=== PATIENT | female | born 1955 | race Asian ===

== ENCOUNTER → 2017-09-28 14:06 | Outpatient (CLI) | payer OTHER, SELFPAY ==
--- NOTE | 2017-09-28 15:23 | PM.TREADMILL ---
Cardiac Stress Test Report Referral & Results Date Patient Seen: 09/28/17 Time Patient Seen: 15:23 Requesting provider: Blanche Duncan Indication: Chest pain Rest ECG: Unremarkable although low voltage making subsequent analysis somewhat difficult, and imperfect Procedure Note: Today following both written and verbal informed consent, the patient was exercised according to a standard Tom protocol. The patient exercised for a total of 8 min 20 sec achieving a maximum heart rate of 130. Patient's maximum systolic blood pressure was 152. This was an estimated 10.1 MET's. Because of patient's low voltage was very difficult to identify subtle ST segment changes but no obvious ST segment changes were identified by the during exercise or in recovery when the ECG was much easier to follow. Patient is somewhat slow heart rate increased but ultimately had a normal heart rate and blood pressure response to exercise Functional aerobic impairment was off the scale estimate at-30% on the active scale Impression: No evidence of ischemia. Excellent exercise capacity. Please note: Actual ECG tracings can be found in the PACS system.
[2017-09-28 18:37] LABS: HIV 1 and 2 Antibody NEGATIVE (NEGATIVE)
== END ==
PROVIDERS: Family Provider Physician Assistant; PCP Physician Assistant; Visit Provider Physician Assistant
DX: R07.9 Chest pain, unspecified (principal); E78.2 Mixed hyperlipidemia; R00.1 Bradycardia, unspecified; S61.239A Puncture wound without foreign body of unspecified finger without damage to nail, initial encounter
CPT/HCPCS: 36415; 86703; 93016; 93017; 93018

== ENCOUNTER → 2017-10-19 09:58 | Outpatient (CLI) | payer OTHER, SELFPAY ==
--- NOTE | 2017-10-19 10:00 | DI.RAD.S_ITS ---
PROCEDURE: XR ELBOW RT MIN 3V INDICATIONS: right elbow pain, muscle weakness forearm TECHNIQUE: 3 views of the elbow were acquired. COMPARISON: None. FINDINGS: Bones: No fractures or dislocations. No suspicious bony lesions. Soft tissues: No elbow joint effusion. No suspicious soft tissue calcifications. IMPRESSION: No effusion or acute bony abnormality. Dictated by: Marcos Case M.D. on 10/19/2017 at 10:51 Approved by: Marcos Case M.D. on 10/19/2017 at 10:52
--- NOTE | 2017-10-19 10:00 | DI.RAD.S_ITS ---
PROCEDURE: XR CERVICAL SPINE 2V OR 3V INDICATIONS: muscle weakness forearm TECHNIQUE: 3 view(s) of the cervical spine were acquired. COMPARISON: None. FINDINGS: Bones: No fractures or dislocations to the T1 level. The lateral masses of C1 appear intact on the odontoid view. No suspicious bony lesions. Disc spaces appear maintained. Soft tissues: No prevertebral soft tissue swelling. IMPRESSION: Normal cervical spine Dictated by: Marcos Case M.D. on 10/19/2017 at 10:52 Approved by: Marcos Case M.D. on 10/19/2017 at 10:53
== END ==
PROVIDERS: Family Provider Physician Assistant; PCP Physician Assistant; Visit Provider Physician Assistant
DX: M54.2 Cervicalgia (principal); M25.521 Pain in right elbow; M62.81 Muscle weakness (generalized)
CPT/HCPCS: 72040; 73080

== ENCOUNTER → 2017-10-28 08:09 | Outpatient (CLI) | payer OTHER, SELFPAY ==
--- NOTE | 2017-10-28 08:14 | DI.MG.S_ITS ---
BILATERAL DIGITAL SCREENING MAMMOGRAM 3D/2D WITH CAD: 10/28/2017 CLINICAL: Routine screening. Comparison is made to exams dated: 01/12/2014 mammogram, 04/16/2016 mammogram, and 09/22/2012 mammogram - [facility]. The tissue of both breasts is heterogeneously dense. This may lower the sensitivity of mammography. Current study was also evaluated with a Computer Aided Detection (CAD) system. There are clustered calcifications in the left breast at 7 o'clock posterior depth. No other significant masses, calcifications, or other findings are seen in either breast. IMPRESSION: INCOMPLETE: NEEDS ADDITIONAL IMAGING EVALUATION The clustered calcifications in the left breast are indeterminate. Additional views with possible ultrasound are recommended. This exam was interpreted at Station ID: [id number]. NOTE: For mammograms, a report in lay terms will be sent to the patient. Approximately 15% of breast malignancies will not be visualized mammographically. In the management of a palpable breast mass, a negative mammogram must not discourage biopsy of a clinically suspicious lesion. Electronically Signed By: Verónica staton/augusta:10/28/2017 11:04:41 copy to: ZARIA VELARDE letter sent: Additional Imaging Needed ACR BI-RADS Category 0: Incomplete 3340F
[2017-10-28 09:46] LABS: Cholesterol 198 mg/dL (140-199); HDL Cholesterol 46 mg/dL (40-60); LDL Cholesterol Calculated 120 mg/dL (<100); Triglycerides 161 mg/dL (35-150)
== END ==
PROVIDERS: Family Provider Physician Assistant; PCP Physician Assistant; Visit Provider Physician Assistant
DX: Z12.31 Encounter for screening mammogram for malignant neoplasm of breast (principal); E78.2 Mixed hyperlipidemia
CPT/HCPCS: 36415; 77063; 77067; 80061

== ENCOUNTER → 2017-11-17 14:05 | Outpatient (CLI) | payer OTHER, SELFPAY ==
--- NOTE | 2017-11-17 14:07 | DI.MG.S_ITS ---
UNILATERAL LEFT DIGITAL DIAGNOSTIC MAMMOGRAM 3D/2D WITH ADDITIONAL VIEWS: 11/17/2017 CLINICAL: Additional evaluation requested from prior study. Comparison is made to exams dated: 10/28/2017 mammogram, 04/16/2016 mammogram, 01/12/2014 mammogram, and 09/22/2012 mammogram - [facility]. The tissue of the left breast is heterogeneously dense. This may lower the sensitivity of mammography. Subtle grouped calcifications measuring 1.0 cm in greatest extent in the inferior left breast at 6-7 o'clock posterior depth are less well seen but appear similar to represent vascular calcifications. No other significant masses, calcifications, or other findings are seen in the breast. IMPRESSION: PROBABLY BENIGN 1.0 cm extent of subtle grouped calcifications in the lower left breast at posterior depth are probably benign. A follow-up mammogram in 6 months is recommended to demonstrate stability. This exam was interpreted at Station ID: [id number]. NOTE: For mammograms, a report in lay terms will be sent to the patient. Approximately 15% of breast malignancies will not be visualized mammographically. In the management of a palpable breast mass, a negative mammogram must not discourage biopsy of a clinically suspicious lesion. Electronically Signed By: Jimbo Haney M.D. ecl/:11/17/2017 21:18:51 copy to: ZARIA VELARDE letter sent: Followup Recommended ACR BI-RADS Category 3: Probably benign 3343F
== END ==
PROVIDERS: PCP Physician Assistant; Visit Provider Physician Assistant
DX: R92.1 Mammographic calcification found on diagnostic imaging of breast (principal)
CPT/HCPCS: 77065; G0279

== ENCOUNTER → 2018-05-18 13:02 | Outpatient (CLI) | payer OTHER, SELFPAY | PROVIDERS: PCP Nurse Practitioner Family; Visit Provider Nurse Practitioner Family | DX: M85.851 Other specified disorders of bone density and structure, right thigh (principal); Z78.0 Asymptomatic menopausal state; E28.39 Other primary ovarian failure; Z82.62 Family history of osteoporosis; Z90.722 Acquired absence of ovaries, bilateral | CPT/HCPCS: 77080 ==

== ENCOUNTER → 2019-03-29 11:17 | Outpatient (CLI) | payer OTHER, SELFPAY ==
[2019-03-29 14:23] LABS: Alanine Aminotransferase 20 IU/L (<35); Albumin 4.7 g/dL (3.5-5.0); Albumin Globulin Ratio 1.5 (1.0-2.8); Alkaline Phosphatase 59 U/L (38-126); Aspartate Aminotransferase 27 IU/L (14-36); Bilirubin Total 0.6 mg/dL (0.2-1.3); Blood Urea Nitrogen 14 mg/dL (7-17); Calcium 9.5 mg/dL (8.4-10.2); Carbon Dioxide 29 mmol/L (22-32); Chloride 102 mmol/L (98-107); Cholesterol 270 mg/dL (140-199); Estimated Glomerular Filt Rate > 60.0 mL/min (>60); Globulin 3.1 g/dL (1.7-4.1); Glucose 90 mg/dL (80-110); HDL Cholesterol 47 mg/dL (40-60); HEMOLYSIS < 15 (0-50); LDL Cholesterol Calculated 184 mg/dL (<100); Magnesium 2.1 mg/dL (1.6-2.3); Potassium 4.1 mmol/L (3.4-5.1); Sodium 141 mmol/L (137-145); Total Protein 7.8 g/dL (6.3-8.2); Triglycerides 197 mg/dL (35-150)
[2019-03-29 18:00] LABS: Vitamin D 25 Hydroxy (D3) 39.6 ng/mL (30.0-100.0)
== END ==
PROVIDERS: PCP Physician Assistant; Visit Provider Physician Assistant
DX: R79.0 Abnormal level of blood mineral (principal); M81.0 Age-related osteoporosis without current pathological fracture; E78.2 Mixed hyperlipidemia
CPT/HCPCS: 36415; 80053; 80061; 82306; 83735

== ENCOUNTER → 2019-05-18 16:22 | Outpatient (CLI) | payer OTHER, SELFPAY ==
--- NOTE | 2019-05-18 | DI.MG.S_ITS ---
BILATERAL DIGITAL SCREENING MAMMOGRAM 3D/2D WITH CAD: 05/18/2019 CLINICAL: Routine screening. Comparison is made to exams dated: 10/28/2017 mammogram, 04/16/2016 mammogram, 01/12/2014 mammogram, 09/22/2012 mammogram, and 01/01/2011 mammogram - [facility]. The tissue of both breasts is heterogeneously dense. This may lower the sensitivity of mammography. Current study was also evaluated with a Computer Aided Detection (CAD) system. There is a fine calcification in the left breast at 7 o'clock middle depth. This is more prominent. No other significant masses, calcifications, or other findings are seen in either breast. IMPRESSION: INCOMPLETE: NEEDS ADDITIONAL IMAGING EVALUATION The fine calcification in the left breast is indeterminate. Additional views are recommended. This exam was interpreted at Station ID: [id number]. NOTE: For mammograms, a report in lay terms will be sent to the patient. Approximately 15% of breast malignancies will not be visualized mammographically. In the management of a palpable breast mass, a negative mammogram must not discourage biopsy of a clinically suspicious lesion. Electronically Signed By: Delfino Dawson M.D. slc/:05/18/2019 17:56:23 copy to: ZARIA VELARDE letter sent: Additional Imaging Needed ACR BI-RADS Category 0: Incomplete 3340F
== END ==
PROVIDERS: PCP Physician Assistant; Referring Provider Physician Assistant; Visit Provider Physician Assistant
DX: Z12.31 Encounter for screening mammogram for malignant neoplasm of breast (principal)
CPT/HCPCS: 77063; 77067

== ENCOUNTER → 2019-06-02 13:10 | Outpatient (CLI) | payer OTHER, SELFPAY ==
--- NOTE | 2019-06-02 | DI.MG.S_ITS ---
UNILATERAL LEFT DIGITAL DIAGNOSTIC MAMMOGRAM 3D/2D WITH ADDITIONAL VIEWS: 06/02/2019 CLINICAL: Additional evaluation requested from prior study. Comparison is made to exams dated: 05/18/2019 mammogram, 11/17/2017 mammogram, 10/28/2017 mammogram, and 04/16/2016 mammogram - [facility]. The tissue of left breast is heterogeneously dense. This may lower the sensitivity of mammography. The fine calcifications in the left breast at 8 o'clock middle depth are not seen on additional views and likely reflect artifact. The findings are unchanged compared to prior studies. No other significant masses or calcifications are seen in the breast. IMPRESSION: There is no mammographic evidence of malignancy. A 1 year screening mammogram is recommended. This exam was interpreted at Station ID: [id number]. NOTE: For mammograms, a report in lay terms will be sent to the patient. Approximately 15% of breast malignancies will not be visualized mammographically. In the management of a palpable breast mass, a negative mammogram must not discourage biopsy of a clinically suspicious lesion. Electronically Signed By: Jesu avila/:06/02/2019 13:43:02 copy to: ZARIA VELARDE letter sent: Normal Exam ACR BI-RADS Category 2: Benign Finding(s) 3342F
== END ==
PROVIDERS: PCP Physician Assistant; Referring Provider Physician Assistant; Visit Provider Physician Assistant
DX: R92.8 Other abnormal and inconclusive findings on diagnostic imaging of breast (principal)
CPT/HCPCS: 77065; G0279

== ENCOUNTER → 2019-06-12 10:46 | Outpatient (CLI) | payer OTHER, SELFPAY ==
[2019-06-12 12:47] LABS: Cholesterol 290 mg/dL (140-199); HDL Cholesterol 44 mg/dL (40-60); LDL Cholesterol Calculated 210 mg/dL (<100); Triglycerides 182 mg/dL (35-150)
== END ==
PROVIDERS: PCP Physician Assistant; Referring Provider Nurse Practitioner Family; Visit Provider Nurse Practitioner Family
DX: E78.2 Mixed hyperlipidemia (principal); R89.9 Unspecified abnormal finding in specimens from other organs, systems and tissues
CPT/HCPCS: 36415; 80061

== ENCOUNTER → 2019-09-18 14:31 | Outpatient (CLI) | payer OTHER, SELFPAY ==
[2019-09-20 09:38] LABS: COVID19 Sendout Not Detected (Not Detected)
== END ==
PROVIDERS: PCP Nurse Practitioner Family; Visit Provider Physician Assistant
DX: Z03.818 Encounter for observation for suspected exposure to other biological agents ruled out (principal)
CPT/HCPCS: 87635

== ENCOUNTER → 2019-11-21 10:40 | Outpatient (CLI) | payer OTHER, SELFPAY ==
[2019-11-21 12:50] LABS: Cholesterol 143 mg/dL (140-199); HDL Cholesterol 59 mg/dL (40-60); LDL Cholesterol Calculated 64 mg/dL (<100); Triglycerides 100 mg/dL (35-150)
== END ==
PROVIDERS: PCP Nurse Practitioner Family; Referring Provider Nurse Practitioner Family; Visit Provider Nurse Practitioner Family
DX: E78.2 Mixed hyperlipidemia (principal)
CPT/HCPCS: 36415; 80061

== ENCOUNTER → 2019-12-12 10:57 | Outpatient (CLI) | payer OTHER, SELFPAY ==
[2019-12-14 15:48] LABS: Inhibin B <7.0 pg/mL (0.0-16.9)
== END ==
PROVIDERS: PCP Nurse Practitioner Family; Referring Provider Obstetrics & Gynecology; Visit Provider Obstetrics & Gynecology
DX: C56.2 Malignant neoplasm of left ovary (principal)
CPT/HCPCS: 36415; 83520

== ENCOUNTER → 2020-06-04 12:07 | Outpatient (CLI) | payer OTHER, SELFPAY ==
--- NOTE | 2020-06-04 12:08 | DI.MG.S_ITS ---
BILATERAL DIGITAL SCREENING MAMMOGRAM 3D/2D WITH CAD: 06/04/2020 CLINICAL: Routine screening. Comparison is made to exams dated: 05/18/2019 mammogram, 10/28/2017 mammogram, and 04/16/2016 mammogram - [facility]. The tissue of both breasts is heterogeneously dense. This may lower the sensitivity of mammography. Current study was also evaluated with a Computer Aided Detection (CAD) system. No significant masses, calcifications, or other findings are seen in either breast. There has been no significant interval change. IMPRESSION: NEGATIVE There is no mammographic evidence of malignancy. A 1 year screening mammogram is recommended. This exam was interpreted at Station ID: [id number]. NOTE: For mammograms, a report in lay terms will be sent to the patient. Approximately 15% of breast malignancies will not be visualized mammographically. In the management of a palpable breast mass, a negative mammogram must not discourage biopsy of a clinically suspicious lesion. Electronically Signed By: Jesu avila/augusta:06/04/2020 12:23:03 letter sent: Normal Exam ACR BI-RADS Category 1: Negative 3341F
== END ==
PROVIDERS: PCP Nurse Practitioner Family; Referring Provider Nurse Practitioner Family; Visit Provider Nurse Practitioner Family
DX: Z12.31 Encounter for screening mammogram for malignant neoplasm of breast (principal)
CPT/HCPCS: 77063; 77067

== ENCOUNTER → 2020-06-19 09:45 | Outpatient (CLI) | payer OTHER, SELFPAY ==
--- NOTE | 2020-06-19 10:01 | DI.RAD.S_ITS ---
PROCEDURE: XR HIP W PEL IF DONE LT 2V INDICATIONS: monitoring TECHNIQUE: AP pelvis with lateral view(s) of the left hip(s). COMPARISON: [facility], CR, [id number] W PEL IF PERFORMED, 12/10/2016, 9:43. FINDINGS: Bones: No fractures or dislocations. Pelvic ring appears intact. No suspicious bony lesions. Soft tissues: The visualized bowel gas pattern is normal. No suspicious soft tissue calcifications. IMPRESSION: No trauma found, minimal bilateral symmetric hip joint osteoarthritis. Dictated by: Mina Amado M.D. on 06/19/2020 at 10:39 Approved by: Mina Amado M.D. on 06/19/2020 at 10:40
[2020-06-19 10:57] LABS: Hematocrit 41.1 % (36-46); Hemoglobin 13.5 g/dL (12.0-16.0); Mean Corpuscular Hemoglobin 29.7 PG (26-34); Mean Corpuscular Volume 90.2 fL (80-100); Platelet Count 214 X10^3/uL (150-400); Red Blood Cell Count 4.56 X10^6/uL (4.0-5.2); Red Cell Distribution Width 12.8 % (11.6-14.8); White Blood Cell Count 4.5 X10^3/uL (4.5-11.0)
[2020-06-19 11:02] LABS: Alanine Aminotransferase 23 IU/L (<35); Albumin 4.6 g/dL (3.5-5.0); Albumin Globulin Ratio 1.3 (1.0-2.8); Alkaline Phosphatase 61 U/L (38-126); Aspartate Aminotransferase 34 IU/L (14-36); BUN Creatinine Ratio 17.5 (6-22); Bilirubin Total 0.4 mg/dL (0.2-1.3); Blood Urea Nitrogen 14 mg/dL (7-17); Calcium 9.7 mg/dL (8.4-10.2); Carbon Dioxide 30 mmol/L (22-32); Chloride 104 mmol/L (98-107); Cholesterol 220 mg/dL (140-199); Estimated Glomerular Filt Rate > 60.0 mL/min (>60); Globulin 3.5 g/dL (1.7-4.1); Glucose 116 mg/dL (80-110); HDL Cholesterol 54 mg/dL (40-60); LDL Cholesterol Calculated 130 mg/dL (<100); Potassium 4.6 mmol/L (3.4-5.1); Sodium 142 mmol/L (137-145); Total Protein 8.1 g/dL (6.3-8.2); Triglycerides 181 mg/dL (35-150)
[2020-06-19 11:35] LABS: Erythrocyte Sedimentation Rate 23 MM/HR (0-20)
[2020-06-19 11:39] LABS: TSH w/ Reflex to FT4 2.75 uIU/mL (0.47-4.68)
[2020-06-19 14:54] LABS: C-Reactive Protein Quant < 0.5 mg/dL (<1.0); HEMOLYSIS < 15 (0-50)
[2020-06-20 10:08] LABS: Hemoglobin A1C% w Est Avg Glu 5.8 % (4.0-6.0)
== END ==
PROVIDERS: PCP Nurse Practitioner Family; Referring Provider Nurse Practitioner Family; Visit Provider Nurse Practitioner Family
DX: E78.2 Mixed hyperlipidemia (principal); M79.10 Myalgia, unspecified site; M81.0 Age-related osteoporosis without current pathological fracture; Z00.00 Encounter for general adult medical examination without abnormal findings; M53.3 Sacrococcygeal disorders, not elsewhere classified
CPT/HCPCS: 36415; 73502; 80053; 80061; 82306; 83036; 84443; 85027; 85651; 86140

== ENCOUNTER → 2020-08-21 13:04 | Outpatient (CLI) | payer MEDICARE, OTHER, SELFPAY | PROVIDERS: PCP Nurse Practitioner Family; Referring Provider Nurse Practitioner Family; Visit Provider Nurse Practitioner Family | DX: M85.852 Other specified disorders of bone density and structure, left thigh; Z78.0 Asymptomatic menopausal state; Z82.62 Family history of osteoporosis; Z90.722 Acquired absence of ovaries, bilateral | CPT/HCPCS: 77080 ==

== ENCOUNTER → 2020-10-16 09:55 | Outpatient (CLI) | payer MEDICARE, OTHER, SELFPAY ==
[2020-10-16 11:55] LABS: Cholesterol 216 mg/dL (140-199); HDL Cholesterol 51 mg/dL (40-60); LDL Cholesterol Calculated 134 mg/dL (<100); Triglycerides 153 mg/dL (35-150); Uric Acid 5.6 mg/dL (2.5-6.2)
== END ==
PROVIDERS: PCP Nurse Practitioner Family; Referring Provider Nurse Practitioner Family; Visit Provider Nurse Practitioner Family
DX: E78.2 Mixed hyperlipidemia (principal); M79.645 Pain in left finger(s)
CPT/HCPCS: 36415; 80061; 84550

== ENCOUNTER → 2020-10-30 13:03 | Outpatient (CLI) | payer MEDICARE, OTHER, SELFPAY ==
[2020-10-30 16:19] LABS: COVID19 -Nasal RAPID Negative (Negative)
== END ==
PROVIDERS: PCP Nurse Practitioner Family; Visit Provider Nurse Practitioner
DX: Z20.822 Contact with and (suspected) exposure to COVID-19 (principal)
CPT/HCPCS: 87635

== ENCOUNTER → 2020-12-06 10:32 | Outpatient (CLI) | payer MEDICARE, OTHER, SELFPAY ==
[2020-12-06 12:39] LABS: Bilirubin Urine UA NEGATIVE (NEGATIVE); Color Urine UA YELLOW; Glucose Urine UA NEGATIVE (Negative); Ketones Urine UA NEGATIVE (NEGATIVE); Leukocyte Esterase Urine UA TRACE (NEGATIVE); Nitrite Urine UA POSITIVE (Negative); Occult Blood Urine UA TRACE-LYSED (Negative); Protein Urine UA NEGATIVE (Negative); Urobilinogen Urine UA 0.2 E.U./dL (0.2)
[2020-12-06 12:41] LABS: Hematocrit 40.1 % (36-46); Mean Corpuscular HGB Conc 32.4 % (30-36); Mean Corpuscular Hemoglobin 28.6 PG (26-34); Mean Corpuscular Volume 88.1 fL (80-100); Platelet Count 278 X10^3/uL (150-400); Red Blood Cell Count 4.56 X10^6/uL (4.0-5.2); White Blood Cell Count 4.3 X10^3/uL (4.5-11.0)
[2020-12-06 12:52] LABS: Appearance Urine UA Slightly Cloudy; RBC Urine 0-1/HPF (0-5/HPF); Squamous Epithelial Cell Urine 1-5 /HPF (0-5/HPF); WBC Urine 5-10/HPF (0-5/HPF)
[2020-12-06 12:53] LABS: Alanine Aminotransferase 20 IU/L (<35); Albumin 4.5 g/dL (3.5-5.0); Albumin Globulin Ratio 1.3 (1.0-2.8); Alkaline Phosphatase 75 U/L (38-126); Aspartate Aminotransferase 26 IU/L (14-36); BUN Creatinine Ratio 22.1 (6-22); Bacteria Urine Many (>30); Bilirubin Total 0.5 mg/dL (0.2-1.3); Blood Urea Nitrogen 17 mg/dL (7-17); Calcium 9.5 mg/dL (8.4-10.2); Carbon Dioxide 32 mmol/L (22-32); Chloride 105 mmol/L (98-107); Cholesterol 199 mg/dL (140-199); Culture Indicated Urine Specimen Cultured; Estimated Glomerular Filt Rate > 60.0 mL/min (>60); Globulin 3.4 g/dL (1.7-4.1); Glucose 106 mg/dL (80-110); HDL Cholesterol 45 mg/dL (40-60); HEMOLYSIS < 15 (0-50); LDL Cholesterol Calculated 130 mg/dL (<100); Potassium 4.4 mmol/L (3.4-5.1); Sodium 142 mmol/L (137-145); Total Protein 7.9 g/dL (6.3-8.2); Triglycerides 118 mg/dL (35-150)
[2020-12-06 13:29] LABS: TSH w/ Reflex to FT4 1.85 uIU/mL (0.47-4.68)
== END ==
PROVIDERS: PCP Nurse Practitioner Family; Referring Provider Nurse Practitioner Family; Visit Provider Nurse Practitioner Family
DX: Z00.00 Encounter for general adult medical examination without abnormal findings (principal); M54.5 Low back pain; R10.31 Right lower quadrant pain; E78.2 Mixed hyperlipidemia
CPT/HCPCS: 36415; 80053; 80061; 81001; 84443; 85027; 87077; 87086; 87186

== ENCOUNTER → 2020-12-10 12:49 | Outpatient (CLI) | payer MEDICARE, OTHER, SELFPAY ==
--- NOTE | 2020-12-10 12:50 | DI.US.S_ITS ---
PROCEDURE: US ABDOMEN COMPLETE INDICATIONS: PAIN TECHNIQUE: Real-time scanning was performed of the abdominal and retroperitoneal organs, with image documentation. COMPARISON: None. FINDINGS: Liver: Liver is normal in size and homogeneous in echotexture. Gallbladder: Gallbladder is sonographically normal. No gallstones. No gallbladder wall thickening. No pericholecystic fluid. No sonographic Osorio sign. Biliary ducts: Intrahepatic bile ducts are non-dilated. Extrahepatic bile duct caliber measures 4.5 mm. Normal is 6-7 mm or less in diameter, or 10 mm or less post-cholecystectomy. Pancreas: Visualized portions of the pancreas are sonographically normal. Spleen: Spleen is normal in size and homogeneous in echotexture. Kidneys: Kidneys are normal in size and echotexture. Right kidney measures 11.2 cm long; left kidney measures 10.6 cm long. No hydronephrosis or nephrolithiasis. No solid masses. Aorta: Visualized aorta is normal in caliber at less than 3 cm. Iliacs: Proximal common iliac arteries are normal in caliber at less than 2.5 cm. IVC: Intrahepatic inferior vena cava is patent. Miscellaneous: No free abdominal fluid. Appendix is not visualized and cannot be evaluated. IMPRESSION: 1. Normal abdominal sonogram. 2. Appendix not identified and cannot be evaluated. This study does not exclude appendicitis. Dictated by: Micaela Mayes MD, PhD on 12/10/2020 at 15:31 Approved by: Micaela Mayes MD, PhD on 12/10/2020 at 15:32
--- NOTE | 2020-12-10 12:50 | DI.RAD.S_ITS ---
PROCEDURE: XR SACRUM COCCYX MIN 2V INDICATIONS: back pain TECHNIQUE: 3 views of the sacrum and coccyx acquired. COMPARISON: None. FINDINGS: Bones: No fractures or dislocations. No suspicious bony lesions. Mild lower lumbar spine degenerative disc changes. Mild bilateral sacroiliac joint osteoarthritis. Soft tissues: Visualized bowel gas pattern is normal. No suspicious soft tissue densities. IMPRESSION: No fracture. No acute osseous lesion. If symptoms and/or clinical suspicion for pathology persists, evaluation with MRI should be considered for further assessment. Dictated by: Micaela Mayes MD, PhD on 12/10/2020 at 14:44 Approved by: Micaela Mayes MD, PhD on 12/10/2020 at 14:45
--- NOTE | 2020-12-10 12:50 | DI.RAD.S_ITS ---
PROCEDURE: XR LUMBAR SPINE 2-3V INDICATIONS: back pain TECHNIQUE: 3 views of the lumbar spine were acquired. COMPARISON: None. FINDINGS: Bones: 5 [id number]-alavlaj vertebrae are present. There is normal bony alignment. No acute vertebral body compression fractures. No suspicious bony lesions. Moderate multilevel lumbar spondylosis with degenerative endplate changes, disc space loss, and endplate osteophyte formation. Soft tissues: Overlying bowel gas pattern is normal. No suspicious soft tissue calcifications. IMPRESSION: Lumbar spine without acute fracture or malalignment. Multilevel lumbar spondylosis. Dictated by: Saleem Zambrano M.D. on 12/10/2020 at 18:02 Approved by: Saleem Zambrano M.D. on 12/10/2020 at 18:03
== END ==
PROVIDERS: PCP Nurse Practitioner Family; Referring Provider Nurse Practitioner Family; Visit Provider Nurse Practitioner Family
DX: R10.31 Right lower quadrant pain (principal); M54.5 Low back pain; M46.1 Sacroiliitis, not elsewhere classified; M47.816 Spondylosis without myelopathy or radiculopathy, lumbar region
CPT/HCPCS: 72100; 72220; 76700

== ENCOUNTER 2021-04-04 13:30 | Outpatient (RCR) | payer MEDICARE, OTHER, SELFPAY ==
--- NOTE | 2021-01-28 17:22 | PT.OPPOC ---
Physical, Occupational & Speech Therapy At [facility] Current Diagnoses Low back pain, unspecified (01/28/21) Stress incontinence (female) (male) (01/28/21) Lower abdominal pain, unspecified (01/28/21) Visit Care Team Role Provider Type STEVEN Knight Attending Provider Advanced Psychotherapist Social Worker Family Provider Primary Care Provider Referring Provider Specialty: Family Practice Address: [address] [place] [address], [id number] Email: [email or web address] Plan Of Care PT-OP-T Assessment and Plan Start: 01/27/21 17:48 Freq: Status: Active Protocol: Document 01/28/21 10:31 LRN (Rec: 01/28/21 11:29 LRN [id number]) Physical Therapy Assessment Rehab Potential Rehabilitation Potential Good Evaluation Complexity Number of Personal Factors/Comorbidities 3 or More Number of Body Systems Impaired 4 or More Clinical Presentation at Evaluation Evolving Impairments Impairments Activity Tolerance,Pain, Posture,ROM,Soft Tissue Mobility,Strength,Transfers Goals Three Impairment Interrupted nighttime sleep due to pain with moving Short Term Goal (STG) Pt will be educated and demonstrate improved sitting posture, with modifications to her lying posture with support of towel rolls for comfort in bed. STG Duration 02/14/21 Information Systems Security Manager Goal (LTG) Pt will be able to move to move in bed without back pain. LTG Duration 04/28/21 Two Impairment Decreased sitting tolerance due to pain Short Term Goal (STG) Pt will be able to sit for 20- 30' without onset of back/ lower abdominal or anterior thigh pain. STG Duration 02/21/21 Information Systems Security Manager Goal (LTG) Pt will be able to sit for 45' without onset of back/lower abdominal or anterior thigh pain LTG Duration 04/28/21 One Impairment Pt lacks an independent self care HEP. Short Term Goal (STG) Pt will be educated in proper body mechanics. STG Duration 02/07/21 Information Systems Security Manager Goal (LTG) Pt will be independent in a self care HEP for PF strengthening. LTG Duration 04/28/21 Assessment Summary Assessment Pt presents with symptoms of pain complaint patterns consistent with pelvic pain, possibly due to her recent starting of online exercises and her recent bout with constipation causing excessive stress on her bladder and pelvic floor. She has a mechanical dysfunction of her lumbar spine per x-ray report of multilevel lumbar spondylosis also causing pain in back possibly her anterior thigh in L2 dermatome. Her trunk mobility is limited due to lower back/buttock pain and tightness of her hamstring muscles. She also demonstrates decreased core strength with inability to maintain core stability during muscle testing of her hips bilaterally. She shows some weakness of her hips, L worse than R and decreased mobility of her hip rotators. She shows indication that she has anterior lower abdominal and thigh soft tissue dysfunction with forward postural sway. Further assessment of her pelvic floor, abdomen, and bladder/bowel positioning is needed and will be checked at her next visit. Rehabilitation is expected to be prolonged due to the pt being gone for 1 month during the iday season. The pt will benefit from skilled physical therapy to decrease her back/abdomen/anterior thigh pain and return her to her prior level of activity and function. Physical Therapy Plan Frequency and Duration Frequency of Treatment 2x/Week Plan of Care Start Date 01/28/21 Plan of Care End Date 04/28/21 Therapeutic Interventions Therapeutic Interventions Home Exercise Program,Joint Mobilizations,Manual Therapy, Neuromuscular Re-education, Patient/Caregiver Education, Self-Care/Home Management,Soft Tissue Mobilization,Taping, Therapeutic Activities, Therapeutic Exercises Modalities Cold Pack/Ice Massage,Electric Stimulation,Hot Packs, Ultrasound Next Visit Focus/Plan Next Note Type Treatment Note Next Visit Plan Assess soft tissue of the abdomen and pelvic floor. Assess response to manual lumbar traction. Review pt's U-tube HEP and modify as needed. Review pt's bladder diary and recommend changes as needed to improve bowel and bladder function. Initiate low back and hip mobility ( rotation, hamstring) and progress towards strengthening exercises as tolerate. Pt will be leaving Mar 02 - week of Mar; therefore focus on placing the pt on a self care program to be done over the weeks. Plan of Care Dates Plan of Care Start Date 01/28/21 Plan of Care End Date 04/28/21 Electronically Signed by: Verónica Lara, PT 01/31/21 1153 Please Sign and Return: I have reviewed this Plan of Care and certify that the skilled therapy services above are required to meet the patient?s needs. Physician Signature Date Printed Name and Credentials Clinical Instructor Signature Printed Name and Credentials
--- NOTE | 2021-01-28 17:22 | PT.OIE ---
Current Diagnoses Low back pain, unspecified (01/28/21) Stress incontinence (female) (male) (01/28/21) Lower abdominal pain, unspecified (01/28/21) Past Medical History (Last Updated 12/04/20 @ 13:19 by STEVEN Knight) Colon polyps (01/11/12) GERD (gastroesophageal reflux disease) Granulosa cell tumor of left ovary (2010) Herpes Latent tuberculosis Lumbar pain Mixed hyperlipidemia (07/28/10) Myalgia Neck muscle strain (11/2019) Osteopenia Osteopenia after menopause Respiratory infection Right lower quadrant pain Sacroiliac joint pain Seasonal allergies Varicose veins of both lower extremities Past Surgical History (Last Reviewed 10/01/20 @ 09:08 by STEVEN Alexander) S/P total abdominal hysterectomy and bilateral salpingo-oophorectomy (2010) Status post breast biopsy (2004) Status post delivery (1985) Status post colonoscopy (01/11/12) Visit Care Team Role Provider Type STEVEN Knight Attending Provider Advanced Shutdown Coordinator Family Provider Primary Care Provider Referring Provider Specialty: [facility] Address: [address] [place] [address] Email: [email or web address] Physical Therapy Initial Evaluation PT-OP-A Visit Information Start: 01/27/21 17:48 Freq: Status: Active Protocol: Document 01/28/21 10:31 LRN (Rec: 01/28/21 11:29 LRN [id number]) Out-Patient Physical Therapy Visit Information Visit Information Visit Type Initial Evaluation Visit Start Time 10:31 Visit Stop Time 11:29 Total Visit Minutes 59 Visit Number 1 Evaluation Information Evaluation Date 01/28/21 Precautions Precautions Osteopenia, sudden onset of bilateral back/abdominal/upper thigh pain. PT-OP-B Current Condition Start: 01/27/21 17:48 Freq: Status: Active Protocol: Document 01/28/21 10:31 LRN (Rec: 01/28/21 11:29 LRN [id number]) Current Condition History of Current Condition Onset Date 12/10/20 Current Complaints Back, lower abdomen, anterior thigh pain, expecially when sitting. History of Current Condition Insidious onset of lower back pain that radiates to lower abdomen and thigh. She had a UTI that is reportedly resolved. Her low back, lower abdomen, and anterior thigh pain has persisted. When she uses the bathroom in the morning her pain is relieved a little, but is still present. She feels weak in her thighs. She reports having a bowel movement every morning with a normal stool type 4 if she is taking Metamucil (2 capsules 2x/day), otherwise she reports constipation. She feels her legs are suspender maker and not as stiff after U-tube stretching. Walking pain is minimal at 1/10. Prior Treatments and Tests X-rays showed - Lumbar spine without acute fracture or malalignment. Multilevel lumbar spondylosis. Physical therapy for neck pain at a local outpatient clinic and was issued a HEP. Future Testing and Treatments Planned None Developmental History Developmental History Has osteopenia. Starting to have a lot of pain and things going on. She is scheduled for a Covid booster Dec 6 and a shingles shot tomorrow. Treatment Goals Patient/Caregiver Goals Pt goal with therapy: Decrease back abdominal to sit for 45' wtihout onset of back /lower abdominal pain; be able to move in bed without pain. Prior Functional Status Baseline Function- ADL's Independent Baseline Function- Mobility Independent Baseline Function- Work/School Retired Baseline Function- Recreation/Hobbies Walked (2-3 miles, 1 hr) and did Eliptical (2 miles for 45' ) every other day. Baseline Function- Other Able to sit for any amount of time and able to move in bed without low back pain. Wore pantiliners for years for small urinary leakage. Current Functional Impairments (Reported) Functional Limitations- ADL's Hinders ability to sit and lie . Can feel pain immediately but tolerable. Pain after 30' must move to relieve pain in back and lower abdomen. Sleep interrupted by back pain when changing positions. Urinary leakage is more. Functional Limitations- Recreation/ Stretching with U-tube and Hobbies neck stretches. Functional Limitations- Other Urinary leakage with coughing or carrying grandkids and sometimes wets pantiliners. Personal Factors Other Personal Factors That May Effect History of neck pain Therapy/Recovery Osteopenia Recent UTI Hysterectomy 2011 PT-OP-C Subjective Start: 01/27/21 17:48 Freq: Status: Active Protocol: Document 01/28/21 10:31 LRN (Rec: 01/28/21 11:29 LRN [id number]) Patient Questionnaires Oswestry Low Back Index Oswestry Score 8 Oswestry Impairment 1 to 19% Impaired (Score 1-19) OP-PT Pain Assessment Pain Assessment Grid Paper Pain Assessment Grid Completed Yes Location Anterior thighs Pain Location Details Anterior thighs Intensity 4 Scale Used Numeric (0 - 10) Description Aching Frequency Constant Pain Aggravating Factors Changing Position Abdomen Pain Location Details Abdomen Intensity 4 Scale Used Numeric (0 - 10) Description Aching Frequency Constant Pain Aggravating Factors Position Low back Pain Location Details Low back into buttocks Intensity 6 Scale Used Numeric (0 - 10) Description Aching Frequency Constant Pain Duration Constant 2/10, but increases with prolonged sitting or sleeping Pain Aggravating Factors Changing Position Other Pain Alleviating Factors Pain cream, pillow under feet and low back PT-OP-H Neuro Start: 01/27/21 17:48 Freq: Status: Active Protocol: Document 01/28/21 10:31 LRN (Rec: 01/28/21 11:29 LRN [id number]) Sensation Evaluation Gross Sensation Gross Sensation WNL PT-OP-J Posture/Palpation/Skin Start: 01/27/21 17:48 Freq: Status: Active Protocol: Document 01/28/21 10:31 LRN (Rec: 01/28/21 11:29 LRN [id number]) Posture Evaluation Position Standing T-Spine Posture Flattened L-Spine Posture Flattened Pelvis Posture (L) PSIS Inferior Comments Posture Comments R leg is positioned behind. Palpation Assessment Location PSIS Palpation Location PSIS's Palpation Details ALA: R is deep MARIA DEL CARMEN: R is deep Sacrum in R sidebend. ASIS Palpation Location ASIS's Palpation Details Deep R and Inflared PT-OP-K Range of Motion Start: 01/27/21 17:48 Freq: Status: Active Protocol: Document 01/28/21 10:31 LRN (Rec: 01/28/21 11:29 LRN [id number]) Lumbar Spine Range of Motion Lumbar Spine Active Degrees Flexion 88 Extension 12 Rotation Left 45 Rotation Right 30 Lateral Flexion Left 22 Lateral Flexion Right 18 Comments 88/55 - Hamstrings tight 12/2 - Sacral pain SB had buttock pain on side bending to. Hip Goniometric Range of Motion Hip Right Passive Testing Position Supine Straight Leg Raise 88 Internal Rotation 30 External Rotation 75 Left Passive Testing Position Supine Straight Leg Raise 88 Internal Rotation 40 External Rotation 70 PT-OP-M Strength Start: 01/27/21 17:48 Freq: Status: Active Protocol: Document 01/28/21 10:31 LRN (Rec: 01/28/21 11:29 LRN [id number]) Trunk Strength Trunk Manual Muscle Testing Testing Position Supine Core Stabilization Not able to maintain stability with rotation during hip strength testing. Hip Strength Hip Manual Muscle Testing Right Adduction 3+ Fair+ Comments Generally 5/5 except as indicated above Left Abduction 3 Fair Adduction 3- Fair- Comments Generally 5/5 except as indicated above PT-OP-Q Treatments Start: 01/27/21 17:48 Freq: Status: Active Protocol: Document 01/28/21 10:31 LRN (Rec: 01/28/21 11:29 LRN [id number]) Therapeutic Exercises Prone Exercises Trunk ext Prone Exercise Name BARI Reps/Minutes 15x Comments Extra time to teach max tolerated position and proper positioning on elbows Self-Care/Home Management Treatment Education Other Education Discussed results of evaluation, goals, and plan of care (POC). Pt agreeable to goals and POC. Activities Self-Care/Home Management Activities I/S pt in BARI ex. PT-OP-T Assessment and Plan Start: 01/27/21 17:48 Freq: Status: Active Protocol: Document 01/28/21 10:31 LRN (Rec: 01/28/21 11:29 LRN [id number]) Physical Therapy Assessment Rehab Potential Rehabilitation Potential Good Evaluation Complexity Number of Personal Factors/Comorbidities 3 or More Number of Body Systems Impaired 4 or More Clinical Presentation at Evaluation Evolving Impairments Impairments Activity Tolerance,Pain, Posture,ROM,Soft Tissue Mobility,Strength,Transfers Goals Three Impairment Interrupted nighttime sleep due to pain with moving Short Term Goal (STG) Pt will be educated and demonstrate improved sitting posture, with modifications to her lying posture with support of towel rolls for comfort in bed. STG Duration 02/14/21 Jail Goal (LTG) Pt will be able to move to move in bed without back pain. LTG Duration 04/28/21 Two Impairment Decreased sitting tolerance due to pain Short Term Goal (STG) Pt will be able to sit for 20- 30' without onset of back/ lower abdominal or anterior thigh pain. STG Duration 02/21/21 Underwater Roboticist Goal (LTG) Pt will be able to sit for 45' without onset of back/lower abdominal or anterior thigh pain LTG Duration 04/28/21 One Impairment Pt lacks an independent self care HEP. Short Term Goal (STG) Pt will be educated in proper body mechanics. STG Duration 02/07/21 Jail Goal (LTG) Pt will be independent in a self care HEP for PF strengthening. LTG Duration 04/28/21 Assessment Summary Assessment Pt presents with symptoms of pain complaint patterns consistent with pelvic pain, possibly due to her recent starting of online exercises and her recent bout with constipation causing excessive stress on her bladder and pelvic floor. She has a mechanical dysfunction of her lumbar spine per x-ray report of multilevel lumbar spondylosis also causing pain in back possibly her anterior thigh in L2 dermatome. Her trunk mobility is limited due to lower back/buttock pain and tightness of her hamstring muscles. She also demonstrates decreased core strength with inability to maintain core stability during muscle testing of her hips bilaterally. She shows some weakness of her hips, L worse than R and decreased mobility of her hip rotators. She shows indication that she has anterior lower abdominal and thigh soft tissue dysfunction with forward postural sway. Further assessment of her pelvic floor, abdomen, and bladder/bowel positioning is needed and will be checked at her next visit. Rehabilitation is expected to be prolonged due to the pt being gone for 1 month during the holiday season. The pt will benefit from skilled physical therapy to decrease her back/abdomen/anterior thigh pain and return her to her prior level of activity and function. Physical Therapy Plan Frequency and Duration Frequency of Treatment 2x/Week Plan of Care Start Date 01/28/21 Plan of Care End Date 04/28/21 Therapeutic Interventions Therapeutic Interventions Home Exercise Program,Joint Mobilizations,Manual Therapy, Neuromuscular Re-education, Patient/Caregiver Education, Self-Care/Home Management,Soft Tissue Mobilization,Taping, Therapeutic Activities, Therapeutic Exercises Modalities Cold Pack/Ice Massage,Electric Stimulation,Hot Packs, Ultrasound Next Visit Focus/Plan Next Note Type Treatment Note Next Visit Plan Assess soft tissue of the abdomen and pelvic floor. Assess response to manual lumbar traction. Review pt's U-tube HEP and modify as needed. Review pt's bladder diary and recommend changes as needed to improve bowel and bladder function. Initiate low back and hip mobility ( rotation, hamstring) and progress towards strengthening exercises as tolerate. Pt will be leaving Dec 19 - sec week of Mar; therefore focus on placing the pt on a self care program to be done over the holiday weeks.
--- NOTE | 2021-02-04 13:27 | PT.OTN ---
Current Diagnoses Low back pain, unspecified (02/04/21) Stress incontinence (female) (male) (02/04/21) Lower abdominal pain, unspecified (02/04/21) Physical Therapy Treatment Note PT-OP-A Visit Information Start: 01/27/21 17:48 Freq: Status: Active Protocol: Document 02/04/21 09:54 LRN (Rec: 02/04/21 10:39 LRN [id number]) Out-Patient Physical Therapy Visit Information Visit Information Visit Type Treatment Note Visit Start Time 09:54 Visit Stop Time 10:35 Total Visit Minutes 41 Visit Number 2 PT-OP-B Current Condition Start: 01/27/21 17:48 Freq: Status: Active Protocol: Document 01/28/21 10:31 LRN (Rec: 01/28/21 11:29 LRN [id number]) Current Condition History of Current Condition Onset Date 12/10/20 Current Complaints Back, lower abdomen, anterior thigh pain, expecially when sitting. History of Current Condition Insidious onset of lower back pain that radiates to lower abdomen and thigh. She had a UTI that is reportedly resolved. Her low back, lower abdomen, and anterior thigh pain has persisted. When she uses the bathroom in the morning her pain is relieved a little, but is still present. She feels weak in her thighs. She reports having a bowel movement every morning with a normal stool type 4 if she is taking Metamucil (2 capsules 2x/day), otherwise she reports constipation. She feels her legs are rn l and d and not as stiff after U-tube stretching. Walking pain is minimal at 1/10. Prior Treatments and Tests X-rays showed - Lumbar spine without acute fracture or malalignment. Multilevel lumbar spondylosis. Physical therapy for neck pain at a local outpatient clinic and was issued a HEP. Future Testing and Treatments Planned None Developmental History Developmental History Has osteopenia. Starting to have a lot of pain and things going on. She is scheduled for a Covid booster Feb 17 and a shingles shot tomorrow. Treatment Goals Patient/Caregiver Goals Pt goal with therapy: Decrease back abdominal to sit for 45' wtihout onset of back /lower abdominal pain; be able to move in bed without pain. Prior Functional Status Baseline Function- ADL's Independent Baseline Function- Mobility Independent Baseline Function- Work/School Retired Baseline Function- Recreation/Hobbies Walked (2-3 miles, 1 hr) and did Eliptical (2 miles for 45' ) every other day. Baseline Function- Other Able to sit for any amount of time and able to move in bed without low back pain. Wore pantiliners for years for small urinary leakage. Current Functional Impairments (Reported) Functional Limitations- ADL's Hinders ability to sit and lie . Can feel pain immediately but tolerable. Pain after 30' must move to relieve pain in back and lower abdomen. Sleep interrupted by back pain when changing positions. Urinary leakage is more. Functional Limitations- Recreation/ Stretching with U-tube and Hobbies neck stretches. Functional Limitations- Other Urinary leakage with coughing or carrying grandkids and sometimes wets pantiliners. Personal Factors Other Personal Factors That May Effect History of neck pain Therapy/Recovery Osteopenia Recent UTI Hysterectomy 2011 PT-OP-C Subjective Start: 01/27/21 17:48 Freq: Status: Active Protocol: Document 02/04/21 09:54 LRN (Rec: 02/04/21 10:39 LRN [id number]) OP-PT Subjective Patient Comments Patient Comments Has had back pain since shingles shot until today; therefore hasn't done much. Only time feels the lower abdominal pain is when sitting and leaning forward. Posterior bilateral hip pain with sitting. PT-OP-H Neuro Start: 01/27/21 17:48 Freq: Status: Active Protocol: Document 01/28/21 10:31 LRN (Rec: 01/28/21 11:29 LRN [id number]) Sensation Evaluation Gross Sensation Gross Sensation WNL PT-OP-J Posture/Palpation/Skin Start: 01/27/21 17:48 Freq: Status: Active Protocol: Document 01/28/21 10:31 LRN (Rec: 01/28/21 11:29 LRN [id number]) Posture Evaluation Position Standing T-Spine Posture Flattened L-Spine Posture Flattened Pelvis Posture (L) PSIS Inferior Comments Posture Comments R leg is positioned behind. Palpation Assessment Location PSIS Palpation Location PSIS's Palpation Details ALA: R is deep MARIA DEL CARMEN: R is deep Sacrum in R sidebend. ASIS Palpation Location ASIS's Palpation Details Deep R and Inflared PT-OP-K Range of Motion Start: 01/27/21 17:48 Freq: Status: Active Protocol: Document 01/28/21 10:31 LRN (Rec: 01/28/21 11:29 LRN [id number]) Lumbar Spine Range of Motion Lumbar Spine Active Degrees Flexion 88 Extension 12 Rotation Left 45 Rotation Right 30 Lateral Flexion Left 22 Lateral Flexion Right 18 Comments 88/55 - Hamstrings tight 12/2 - Sacral pain SB had buttock pain on side bending to. Hip Goniometric Range of Motion Hip Right Passive Testing Position Supine Straight Leg Raise 88 Internal Rotation 30 External Rotation 75 Left Passive Testing Position Supine Straight Leg Raise 88 Internal Rotation 40 External Rotation 70 PT-OP-M Strength Start: 01/27/21 17:48 Freq: Status: Active Protocol: Document 01/28/21 10:31 LRN (Rec: 01/28/21 11:29 LRN [id number]) Trunk Strength Trunk Manual Muscle Testing Testing Position Supine Core Stabilization Not able to maintain stability with rotation during hip strength testing. Hip Strength Hip Manual Muscle Testing Right Adduction 3+ Fair+ Comments Generally 5/5 except as indicated above Left Abduction 3 Fair Adduction 3- Fair- Comments Generally 5/5 except as indicated above PT-OP-Q Treatments Start: 01/27/21 17:48 Freq: Status: Active Protocol: Document 02/04/21 09:54 LRN (Rec: 02/04/21 10:39 LRN [id number]) Therapeutic Exercises Supine Exercises Deep Breathing Supine Exercise Name Deep Breathing Reps/Minutes 1' Comments Shallow chest breathing to abdominal breathing after phy & v cuing/trainin. Hamstring/LE neural stretch Supine Exercise Name Hamstring/LE neural stretch Side bilateral Reps/Minutes 3' Comments Extra time with phy & v cuing for max kwesi stretch & proper positioning Therapeutic Activity Therapeutic Activity Daily activities Name Daily activities body mechanics training Reps/Minutes 2' Transfer training Name Sit <> Supine Reps/Minutes 2' Manual Therapy Treatment Soft Tissue Mobilization Lower abdominal scar Body Location scar Mobilization Type Cross-Friction,Myofascial Release,Strumming Intensity/Depth Moderate Body Position Supine Lower abdomen Body Location Bladder, Urachus, Mobilization Type Myofascial Release,Strumming QL Body Location Pedro QL/Trunk rotators Mobilization Type Strumming Intensity/Depth Moderate Body Position Supine Manual Traction Lumbar Details Traction with belt around knees Body Position Hooklying Reps/Duration 5' Comments Intermittent manual traction Self-Care/Home Management Treatment Education Patient Education Body Mechanics,Home Exercise Program Other Education Pt education and discussion in proper body mechanics for daily activities (see therapeutic activities). Activities Self-Care/Home Management Activities Issued & reviewed HEP: LE hamstring/neural stretch & Daily activities body mechanics. PT-OP-T Assessment and Plan Start: 01/27/21 17:48 Freq: Status: Active Protocol: Document 02/04/21 09:54 LRN (Rec: 02/04/21 10:39 LRN [id number]) Physical Therapy Assessment Goals Three Impairment Interrupted nighttime sleep due to pain with moving Short Term Goal (STG) Pt will be educated and demonstrate improved sitting posture, with modifications to her lying posture with support of towel rolls for comfort in bed. STG Duration 02/14/21 Half-Way Goal (LTG) Pt will be able to move to move in bed without back pain. LTG Duration 04/28/21 Two Impairment Decreased sitting tolerance due to pain Short Term Goal (STG) Pt will be able to sit for 20- 30' without onset of back/ lower abdominal or anterior thigh pain. STG Duration 02/21/21 Oil Heaterman Goal (LTG) Pt will be able to sit for 45' without onset of back/lower abdominal or anterior thigh pain LTG Duration 04/28/21 One Impairment Pt lacks an independent self care HEP. Short Term Goal (STG) Pt will be educated in proper body mechanics. STG Duration 02/07/21 (02/04/21: MET GOAL) Half-Way Goal (LTG) Pt will be independent in a self care HEP for PF strengthening. (02/04/21: Added Hamstring stretch & self QL/lateral trunk self manual stretch) LTG Duration 04/28/21 (02/04/21: Progressed). Progress Towards Goals Progress Comments STG #1 MET. Progressed HEP. Assessment Summary Assessment Alleviation of buttock pain and most of the abdominal pain with leaning forward, with manual lumbar traction. Pt did not have pain with STM of abdomen. Very mild soft tissue restriction of well healed cesarian scar. Pt demonstrates poor deep breathing, but improved with training. Physical Therapy Plan Frequency and Duration Frequency of Treatment 2x/Week Plan of Care Start Date 01/28/21 Plan of Care End Date 04/28/21 Next Visit Focus/Plan Next Note Type Treatment Note Next Visit Plan Assess pelvic floor only if abdominal pain persists. Review pt's U-tube HEP and modify as needed. Review pt's bladder diary and recommend changes as needed to improve bowel and bladder function. Initiate low back and hip mobility (rotation) and progress towards strengthening exercises as tolerate. Pt will be leaving Mar 02 - sec week of Mar; therefore focus on placing the pt on a self care program to be done over the holiday weeks.
--- NOTE | 2021-02-14 15:20 | PT.OTN ---
Current Diagnoses Low back pain, unspecified (02/14/21) Stress incontinence (female) (male) (02/14/21) Lower abdominal pain, unspecified (02/14/21) Physical Therapy Treatment Note PT-OP-A Visit Information Start: 01/27/21 17:48 Freq: Status: Active Protocol: Document 02/14/21 12:49 LRN (Rec: 02/14/21 13:35 LRN [id number]) Out-Patient Physical Therapy Visit Information Visit Information Visit Type Treatment Note Visit Start Time 12:49 Visit Stop Time 13:31 Total Visit Minutes 42 Visit Number 3 Evaluation Information Evaluation Date 01/28/21 Precautions Precautions Osteopenia, sudden onset of bilateral back/abdominal/upper thigh pain. PT-OP-B Current Condition Start: 01/27/21 17:48 Freq: Status: Active Protocol: Document 01/28/21 10:31 LRN (Rec: 01/28/21 11:29 LRN [id number]) Current Condition History of Current Condition Onset Date 12/10/20 Current Complaints Back, lower abdomen, anterior thigh pain, expecially when sitting. History of Current Condition Insidious onset of lower back pain that radiates to lower abdomen and thigh. She had a UTI that is reportedly resolved. Her low back, lower abdomen, and anterior thigh pain has persisted. When she uses the bathroom in the morning her pain is relieved a little, but is still present. She feels weak in her thighs. She reports having a bowel movement every morning with a normal stool type 4 if she is taking Metamucil (2 capsules 2x/day), otherwise she reports constipation. 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 Walking pain is minimal at 1/10. Prior Treatments and Tests X-rays showed - Lumbar spine without acute fracture or malalignment. Multilevel lumbar spondylosis. Physical therapy for neck pain at a local outpatient clinic and was issued a HEP. Future Testing and Treatments Planned None Developmental History Developmental History Has osteopenia. Starting to have a lot of pain and things going on. She is scheduled for a Covid booster Dec 6 and a shingles shot tomorrow. Treatment Goals Patient/Caregiver Goals Pt goal with therapy: Decrease back abdominal to sit for 45' wtihout onset of back /lower abdominal pain; be able to move in bed without pain. Prior Functional Status Baseline Function- ADL's Independent Baseline Function- Mobility Independent Baseline Function- Work/School Retired Baseline Function- Recreation/Hobbies Walked (2-3 miles, 1 hr) and did Eliptical (2 miles for 45' ) every other day. Baseline Function- Other Able to sit for any amount of time and able to move in bed without low back pain. Wore pantiliners for years for small urinary leakage. Current Functional Impairments (Reported) Functional Limitations- ADL's Hinders ability to sit and lie . Can feel pain immediately but tolerable. Pain after 30' must move to relieve pain in back and lower abdomen. Sleep interrupted by back pain when changing positions. Urinary leakage is more. Functional Limitations- Recreation/ Stretching with U-tube and Hobbies neck stretches. Functional Limitations- Other Urinary leakage with coughing or carrying grandkids and sometimes wets pantiliners. Personal Factors Other Personal Factors That May Effect History of neck pain Therapy/Recovery Osteopenia Recent UTI Hysterectomy 2011 PT-OP-C Subjective Start: 01/27/21 17:48 Freq: Status: Active Protocol: Document 02/14/21 12:49 LRN (Rec: 02/14/21 13:35 LRN [id number]) OP-PT Subjective Patient Comments Patient Comments Pain off/on in the buttocks. No pain currently. Minimal lower abdominal pain that wraps around to the back, especially when she does crunches. PT-OP-H Neuro Start: 01/27/21 17:48 Freq: Status: Active Protocol: Document 01/28/21 10:31 LRN (Rec: 01/28/21 11:29 LRN [id number]) Sensation Evaluation Gross Sensation Gross Sensation WNL PT-OP-J Posture/Palpation/Skin Start: 01/27/21 17:48 Freq: Status: Active Protocol: Document 02/14/21 12:49 LRN (Rec: 02/14/21 13:35 LRN [id number]) Palpation Assessment Location PF Palpation Location External and internal PF Palpation Details No tenderness. Bladder cystocele grade II. Dry external tissues. PT-OP-K Range of Motion Start: 01/27/21 17:48 Freq: Status: Active Protocol: Document 01/28/21 10:31 LRN (Rec: 01/28/21 11:29 LRN [id number]) Lumbar Spine Range of Motion Lumbar Spine Active Degrees Flexion 88 Extension 12 Rotation Left 45 Rotation Right 30 Lateral Flexion Left 22 Lateral Flexion Right 18 Comments 88/55 - Hamstrings tight 12/2 - Sacral pain SB had buttock pain on side bending to. Hip Goniometric Range of Motion Hip Right Passive Testing Position Supine Straight Leg Raise 88 Internal Rotation 30 External Rotation 75 Left Passive Testing Position Supine Straight Leg Raise 88 Internal Rotation 40 External Rotation 70 PT-OP-M Strength Start: 01/27/21 17:48 Freq: Status: Active Protocol: Document 01/28/21 10:31 LRN (Rec: 01/28/21 11:29 LRN [id number]) Trunk Strength Trunk Manual Muscle Testing Testing Position Supine Core Stabilization Not able to maintain stability with rotation during hip strength testing. Hip Strength Hip Manual Muscle Testing Right Adduction 3+ Fair+ Comments Generally 5/5 except as indicated above Left Abduction 3 Fair Adduction 3- Fair- Comments Generally 5/5 except as indicated above PT-OP-Q Treatments Start: 01/27/21 17:48 Freq: Status: Active Protocol: Document 02/14/21 12:49 LRN (Rec: 02/14/21 13:35 LRN [id number]) Cardio Equipment Treadmill Duration (Minutes) 8 Speed 2 Incline 0 Therapeutic Exercises Supine Exercises Kegel Supine Exercise Name Kegel Reps/Minutes 5 Hamstring/LE neural stretch Supine Exercise Name Hamstring/LE neural stretch Side bilateral Reps/Minutes 3' Comments Extra time with phy & v cuing for max kwesi stretch & proper positioning Manual Therapy Treatment Soft Tissue Mobilization Lower abdomen Body Location Bladder, Urachus, Uterus Mobilization Type Myofascial Release,Strumming Body Position Supine Comments Treatment included: Bladder Lift, L rotation, Uterus R rotation. Manual Traction Lumbar Details Traction with belt around knees Body Position Hooklying Reps/Duration 5' Comments Intermittent manual traction Self-Care/Home Management Treatment Education Other Education Reviewed & discussed bladder diary with discussions of long urination times, urinary leakage as related to strong urges, and increased frequency of urination, with recommendation of bladder retraining. Activities Self-Care/Home Management Activities I/S pt to do Kegels (Quick Flicks & Long Holds) with pillow under hips. PT-OP-T Assessment and Plan Start: 01/27/21 17:48 Freq: Status: Active Protocol: Document 02/14/21 12:49 LRN (Rec: 02/14/21 13:35 LRN [id number]) Physical Therapy Assessment Goals Three Impairment Interrupted nighttime sleep due to pain with moving Short Term Goal (STG) Pt will be educated and demonstrate improved sitting posture, with modifications to her lying posture with support of towel rolls for comfort in bed. STG Duration 02/14/21 Galley Cook Goal (LTG) Pt will be able to move to move in bed without back pain. LTG Duration 04/28/21 Two Impairment Decreased sitting tolerance due to pain Short Term Goal (STG) Pt will be able to sit for 20- 30' without onset of back/ lower abdominal or anterior thigh pain. STG Duration 02/21/21 Galley Cook Goal (LTG) Pt will be able to sit for 45' without onset of back/lower abdominal or anterior thigh pain LTG Duration 04/28/21 One Impairment Pt lacks an independent self care HEP. Short Term Goal (STG) Pt will be educated in proper body mechanics. STG Duration 02/07/21 (02/04/21: MET GOAL) Galley Cook Goal (LTG) Pt will be independent in a self care HEP for PF strengthening. (02/04/21: Added Hamstring stretch & self QL/lateral trunk self manual stretch) LTG Duration 04/28/21 (02/04/21: Progressed). Assessment Summary Assessment Pt noted back pain with start of LE neural stretch, but after manual lumbar traction, pt had only pain in the hamstring and lower leg with stretching. After manual mob to lower abdomen the pt reported no lower abdominal pain or back pain at end of treatment. Pt lower abdominal pain possibly from cystocele, grade II. Physical Therapy Plan Frequency and Duration Frequency of Treatment 2x/Week Plan of Care Start Date 01/28/21 Plan of Care End Date 04/28/21 Next Visit Focus/Plan Next Note Type Treatment Note Next Visit Plan Review pt's U-tube HEP and modify as needed. Teach proper breathing to minimize PF pressures, add HEP: Kegel ex to be done w/pillows under hips. Review urge deference technique and issue handout. Initiate low back and hip mobility (rotation) and progress towards strengthening exercises as tolerate, initiate standing hamstring stretch positioin for PF strengthening periodically when required sitting for prolonged time. Pt will be leaving Feb 19 - sec week of Mar; therefore focus on placing the pt on a self care program to be done over the holiday weeks.
--- NOTE | 2021-02-18 17:01 | PT.OTN ---
Current Diagnoses Low back pain, unspecified (02/18/21) Stress incontinence (female) (male) (02/18/21) Lower abdominal pain, unspecified (02/18/21) Physical Therapy Treatment Note PT-OP-A Visit Information Start: 01/27/21 17:48 Freq: Status: Active Protocol: Document 02/18/21 09:10 LRN (Rec: 02/18/21 10:03 LRN [id number]) Out-Patient Physical Therapy Visit Information Visit Information Visit Type Treatment Note Visit Start Time 09:10 Visit Stop Time 10:00 Total Visit Minutes 50 Visit Number 4 Evaluation Information Evaluation Date 01/28/21 Precautions Precautions Osteopenia, sudden onset of bilateral back/abdominal/upper thigh pain. PT-OP-B Current Condition Start: 01/27/21 17:48 Freq: Status: Active Protocol: Document 01/28/21 10:31 LRN (Rec: 01/28/21 11:29 LRN [id number]) Current Condition History of Current Condition Onset Date 12/10/20 Current Complaints Back, lower abdomen, anterior thigh pain, expecially when sitting. History of Current Condition Insidious onset of lower back pain that radiates to lower abdomen and thigh. She had a UTI that is reportedly resolved. Her low back, lower abdomen, and anterior thigh pain has persisted. When she uses the bathroom in the morning her pain is relieved a little, but is still present. She feels weak in her thighs. She reports having a bowel movement every morning with a normal stool type 4 if she is taking Metamucil (2 capsules 2x/day), otherwise she reports constipation. 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 Walking pain is minimal at 1/10. Prior Treatments and Tests X-rays showed - Lumbar spine without acute fracture or malalignment. Multilevel lumbar spondylosis. Physical therapy for neck pain at a local outpatient clinic and was issued a HEP. Future Testing and Treatments Planned None Developmental History Developmental History Has osteopenia. Starting to have a lot of pain and things going on. She is scheduled for a Covid booster Dec 6 and a shingles shot tomorrow. Treatment Goals Patient/Caregiver Goals Pt goal with therapy: Decrease back abdominal to sit for 45' wtihout onset of back /lower abdominal pain; be able to move in bed without pain. Prior Functional Status Baseline Function- ADL's Independent Baseline Function- Mobility Independent Baseline Function- Work/School Retired Baseline Function- Recreation/Hobbies Walked (2-3 miles, 1 hr) and did Eliptical (2 miles for 45' ) every other day. Baseline Function- Other Able to sit for any amount of time and able to move in bed without low back pain. Wore pantiliners for years for small urinary leakage. Current Functional Impairments (Reported) Functional Limitations- ADL's Hinders ability to sit and lie . Can feel pain immediately but tolerable. Pain after 30' must move to relieve pain in back and lower abdomen. Sleep interrupted by back pain when changing positions. Urinary leakage is more. Functional Limitations- Recreation/ Stretching with U-tube and Hobbies neck stretches. Functional Limitations- Other Urinary leakage with coughing or carrying grandkids and sometimes wets pantiliners. Personal Factors Other Personal Factors That May Effect History of neck pain Therapy/Recovery Osteopenia Recent UTI Hysterectomy 2011 PT-OP-C Subjective Start: 01/27/21 17:48 Freq: Status: Active Protocol: Document 02/18/21 09:10 LRN (Rec: 02/18/21 10:03 LRN [id number]) OP-PT Subjective Patient Comments Patient Comments [place] fine after last session for until the evening. Sometimes the pain is more intense than initially. At night sitting feels pressure in the buttocks and LB (sacral region and lower abdomen. 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 PT-OP-H Neuro Start: 01/27/21 17:48 Freq: Status: Active Protocol: Document 01/28/21 10:31 LRN (Rec: 01/28/21 11:29 LRN [id number]) Sensation Evaluation Gross Sensation Gross Sensation WNL PT-OP-J Posture/Palpation/Skin Start: 01/27/21 17:48 Freq: Status: Active Protocol: Document 02/14/21 12:49 LRN (Rec: 02/14/21 13:35 LRN [id number]) Palpation Assessment Location PF Palpation Location External and internal PF Palpation Details No tenderness. Bladder cystocele grade II. Dry external tissues. PT-OP-K Range of Motion Start: 01/27/21 17:48 Freq: Status: Active Protocol: Document 01/28/21 10:31 LRN (Rec: 01/28/21 11:29 LRN [id number]) Lumbar Spine Range of Motion Lumbar Spine Active Degrees Flexion 88 Extension 12 Rotation Left 45 Rotation Right 30 Lateral Flexion Left 22 Lateral Flexion Right 18 Comments 88/55 - Hamstrings tight 12/2 - Sacral pain SB had buttock pain on side bending to. Hip Goniometric Range of Motion Hip Right Passive Testing Position Supine Straight Leg Raise 88 Internal Rotation 30 External Rotation 75 Left Passive Testing Position Supine Straight Leg Raise 88 Internal Rotation 40 External Rotation 70 PT-OP-M Strength Start: 01/27/21 17:48 Freq: Status: Active Protocol: Document 01/28/21 10:31 LRN (Rec: 01/28/21 11:29 LRN [id number]) Trunk Strength Trunk Manual Muscle Testing Testing Position Supine Core Stabilization Not able to maintain stability with rotation during hip strength testing. Hip Strength Hip Manual Muscle Testing Right Adduction 3+ Fair+ Comments Generally 5/5 except as indicated above Left Abduction 3 Fair Adduction 3- Fair- Comments Generally 5/5 except as indicated above PT-OP-Q Treatments Start: 01/27/21 17:48 Freq: Status: Active Protocol: Document 02/18/21 09:10 LRN (Rec: 02/18/21 10:03 LRN [id number]) Cardio Equipment Treadmill Duration (Minutes) 8 Speed 2.3 Incline 0 Other Swinging arms. Star: Only LBP rated 2/10 Therapeutic Exercises Supine Exercises Kegel Supine Exercise Name Kegel Reps/Minutes 5' Hamstring/LE neural stretch Supine Exercise Name Hamstring/LE neural stretch Side bilateral Reps/Minutes 6' Comments Extra time with phy & v cuing for max kwesi stretch & proper positioning Manual Therapy Treatment Manual Traction Lumbar Details Traction with belt around knees Body Position Hooklying Reps/Duration 5' Comments Intermittent manual traction Self-Care/Home Management Treatment Education Patient Education Body Mechanics Other Education Extensive training in proper lifting mechanics. Reviewed pt's Utube vidieo exercises and identified areas to modify (ex - leg forward kicks, no jumping jacks, pelvic motions without bouncing, no planks or sit ups ) Activities Self-Care/Home Management Activities Issued & reviewed HEP handouts for proper sitting/standing posture & Proper posture for safe movement graph. PT-OP-R Modalities Start: 01/27/21 17:48 Freq: Status: Active Protocol: Document 02/18/21 09:10 LRN (Rec: 02/18/21 10:03 LRN [id number]) Hot Pack/Cold Pack Treatment Hot Pack Location Low back Patient Position Hooklying Treatment Duration (minutes) 10 Patient Tolerance Good Comments Legs on bolster. PT-OP-T Assessment and Plan Start: 01/27/21 17:48 Freq: Status: Active Protocol: Document 02/18/21 09:10 LRN (Rec: 02/18/21 10:03 LRN [id number]) Physical Therapy Assessment Goals Three Impairment Interrupted nighttime sleep due to pain with moving Short Term Goal (STG) Pt will be educated and demonstrate improved sitting posture, with modifications to her lying posture with support of towel rolls for comfort in bed. STG Duration 02/14/21 (02/18/21: MET GOAL) Intermediate Goal (LTG) Pt will be able to move in bed without back pain. LTG Duration 04/28/21 Two Impairment Decreased sitting tolerance due to pain Short Term Goal (STG) Pt will be able to sit for 20- 30' without onset of back/ lower abdominal or anterior thigh pain. STG Duration 02/21/21 Inspector Exhaust Emissions Goal (LTG) Pt will be able to sit for 45' without onset of back/lower abdominal or anterior thigh pain LTG Duration 04/28/21 One Impairment Pt lacks an independent self care HEP. Short Term Goal (STG) Pt will be educated in proper body mechanics. STG Duration 02/07/21 (02/04/21: MET GOAL) Inspector Exhaust Emissions Goal (LTG) Pt will be independent in a self care HEP for PF strengthening. (02/04/21: Added Hamstring stretch & self QL/lateral trunk self manual stretch) LTG Duration 04/28/21 (02/04/21: Progressed). Assessment Summary Assessment Pt has been overstretching with LE hamstring stretch; therefore increased LBP at times. Today pt appears to have a better understanding after overstretching on R side , but demonstrated better control on L side after education/training. Review of pt's U-tube ex program showed she was doing forward kicks that is probably causing increased back irritation and increased pain. Pt jumping with exercise probably affecting her pelvic pain with more abdominal pain. Pt needs continued review and cuing of proper breathing with exercise in order to not valsave maneuver during ex and functional activities. Physical Therapy Plan Frequency and Duration Frequency of Treatment 2x/Week Plan of Care Start Date 01/28/21 Plan of Care End Date 04/28/21 Next Visit Focus/Plan Next Note Type Treatment Note Next Visit Plan Pt will be leaving Mar 02 - week of Mar; therefore focus on placing the pt on a self care program to be done over the hol weeks. Continue to train for proper breathing to minimize PF pressures with functional activities. Add HEP: Kegel ex to be done w /pillows under hips. Review urge deference technique and issue handout. Initiate low back and hip mobility (rotation) and progress towards strengthening exercises as tolerate, initiate standing hamstring stretch position for PF strengthening periodically when required sitting for prolonged time.
--- NOTE | 2021-02-20 15:39 | PT.OTN ---
Current Diagnoses Low back pain, unspecified (02/20/21) Stress incontinence (female) (male) (02/20/21) Lower abdominal pain, unspecified (02/20/21) Physical Therapy Treatment Note PT-OP-A Visit Information Start: 01/27/21 17:48 Freq: Status: Active Protocol: Document 02/20/21 14:25 LRN (Rec: 02/20/21 15:38 LRN [id number]) Out-Patient Physical Therapy Visit Information Visit Information Visit Type Treatment Note Visit Start Time 14:25 Visit Stop Time 15:08 Total Visit Minutes 43 Visit Number 5 Evaluation Information Evaluation Date 01/28/21 Precautions Precautions Osteopenia, sudden onset of bilateral back/abdominal/upper thigh pain. PT-OP-B Current Condition Start: 01/27/21 17:48 Freq: Status: Active Protocol: Document 01/28/21 10:31 LRN (Rec: 01/28/21 11:29 LRN [id number]) Current Condition History of Current Condition Onset Date 12/10/20 Current Complaints Back, lower abdomen, anterior thigh pain, expecially when sitting. History of Current Condition Insidious onset of lower back pain that radiates to lower abdomen and thigh. She had a UTI that is reportedly resolved. Her low back, lower abdomen, and anterior thigh pain has persisted. When she uses the bathroom in the morning her pain is relieved a little, but is still present. She feels weak in her thighs. She reports having a bowel movement every morning with a normal stool type 4 if she is taking Metamucil (2 capsules 2x/day), otherwise she reports constipation. 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 Walking pain is minimal at 1/10. Prior Treatments and Tests X-rays showed - Lumbar spine without acute fracture or malalignment. Multilevel lumbar spondylosis. Physical therapy for neck pain at a local outpatient clinic and was issued a HEP. Future Testing and Treatments Planned None Developmental History Developmental History Has osteopenia. Starting to have a lot of pain and things going on. She is scheduled for a Covid booster Dec 6 and a shingles shot tomorrow. Treatment Goals Patient/Caregiver Goals Pt goal with therapy: Decrease back abdominal to sit for 45' wtihout onset of back /lower abdominal pain; be able to move in bed without pain. Prior Functional Status Baseline Function- ADL's Independent Baseline Function- Mobility Independent Baseline Function- Work/School Retired Baseline Function- Recreation/Hobbies Walked (2-3 miles, 1 hr) and did Eliptical (2 miles for 45' ) every other day. Baseline Function- Other Able to sit for any amount of time and able to move in bed without low back pain. Wore pantiliners for years for small urinary leakage. Current Functional Impairments (Reported) Functional Limitations- ADL's Hinders ability to sit and lie . Can feel pain immediately but tolerable. Pain after 30' must move to relieve pain in back and lower abdomen. Sleep interrupted by back pain when changing positions. Urinary leakage is more. Functional Limitations- Recreation/ Stretching with U-tube and Hobbies neck stretches. Functional Limitations- Other Urinary leakage with coughing or carrying grandkids and sometimes wets pantiliners. Personal Factors Other Personal Factors That May Effect History of neck pain Therapy/Recovery Osteopenia Recent UTI Hysterectomy 2011 PT-OP-C Subjective Start: 01/27/21 17:48 Freq: Status: Active Protocol: Document 02/20/21 14:25 LRN (Rec: 02/20/21 15:38 LRN [id number]) OP-PT Subjective Patient Comments Patient Comments States yesterday drove to [place] and had Pedro buttock pain. Lying in bed feels the tiredness and pain a little bit, feels 75-80% better. Since last visit hasn't hurt in abdomen. States she has been hanging upside down on an inversion table for 1-2 minutes. Had headache to start. PT-OP-H Neuro Start: 01/27/21 17:48 Freq: Status: Active Protocol: Document 01/28/21 10:31 LRN (Rec: 01/28/21 11:29 LRN [id number]) Sensation Evaluation Gross Sensation Gross Sensation WNL PT-OP-J Posture/Palpation/Skin Start: 01/27/21 17:48 Freq: Status: Active Protocol: Document 02/14/21 12:49 LRN (Rec: 02/14/21 13:35 LRN [id number]) Palpation Assessment Location PF Palpation Location External and internal PF Palpation Details No tenderness. Bladder cystocele grade II. Dry external tissues. PT-OP-K Range of Motion Start: 01/27/21 17:48 Freq: Status: Active Protocol: Document 01/28/21 10:31 LRN (Rec: 01/28/21 11:29 LRN [id number]) Lumbar Spine Range of Motion Lumbar Spine Active Degrees Flexion 88 Extension 12 Rotation Left 45 Rotation Right 30 Lateral Flexion Left 22 Lateral Flexion Right 18 Comments 88/55 - Hamstrings tight 12/2 - Sacral pain SB had buttock pain on side bending to. Hip Goniometric Range of Motion Hip Right Passive Testing Position Supine Straight Leg Raise 88 Internal Rotation 30 External Rotation 75 Left Passive Testing Position Supine Straight Leg Raise 88 Internal Rotation 40 External Rotation 70 PT-OP-M Strength Start: 01/27/21 17:48 Freq: Status: Active Protocol: Document 01/28/21 10:31 LRN (Rec: 01/28/21 11:29 LRN [id number]) Trunk Strength Trunk Manual Muscle Testing Testing Position Supine Core Stabilization Not able to maintain stability with rotation during hip strength testing. Hip Strength Hip Manual Muscle Testing Right Adduction 3+ Fair+ Comments Generally 5/5 except as indicated above Left Abduction 3 Fair Adduction 3- Fair- Comments Generally 5/5 except as indicated above PT-OP-Q Treatments Start: 01/27/21 17:48 Freq: Status: Active Protocol: Document 02/20/21 14:25 LRN (Rec: 02/20/21 15:38 LRN [id number]) Cardio Equipment Treadmill Duration (Minutes) 8 Speed 2.3 Incline 0 Other Swinging arms. Start: Only LBP rated 0/10 Therapeutic Exercises Supine Exercises Lateral hip stretch Supine Exercise Name Lateral Hip stretch (R>L) Side bilateral Reps/Minutes 4' Comments Phys & v cuing needed to keep trunk neutral. Piriformis stretch Supine Exercise Name Piriformis stretch - ankle crossed over opposite leg (R>L ) Side bilateral Reps/Minutes 4' Comments Pt getting stretch in start position Kegel Supine Exercise Name Kegel - Quick Flicks, Long Holds Reps/Minutes 5' Hamstring/LE neural stretch Supine Exercise Name Hamstring/LE neural stretch Side bilateral Reps/Minutes 5' Comments V cuing to keep stretch applied with ankle pumps and not to lower leg. Manual Therapy Treatment Manual Traction Lumbar Details Traction with belt around knees Body Position Hooklying Reps/Duration 9' Comments Intermittent manual traction Self-Care/Home Management Treatment Education Patient Education Home Exercise Program Other Education Education and training in urge deference technique. Education and training in proper transfers/proper breathing/PF contraction. Discussed use of lumbar support when driving to keep neutral spine and recommended use of towel roll or small pillow. Discussed alternate methods for picking up objects off the ground (sitting to flower picker, facing straight forward & bending of knees, and use of arms to support self during squat) Activities Self-Care/Home Management Activities Issued & reviewed Kegel exercises and Urinary urge Deference technique, and HEP: Piriformis and lateral hip stretch. PT-OP-R Modalities Start: 01/27/21 17:48 Freq: Status: Active Protocol: Document 02/18/21 09:10 LRN (Rec: 02/18/21 10:03 LRN [id number]) Hot Pack/Cold Pack Treatment Hot Pack Location Low back Patient Position Hooklying Treatment Duration (minutes) 10 Patient Tolerance Good Comments Legs on bolster. PT-OP-T Assessment and Plan Start: 01/27/21 17:48 Freq: Status: Active Protocol: Document 02/20/21 14:25 LRN (Rec: 02/20/21 15:38 LRN [id number]) Physical Therapy Assessment Goals Three Impairment Interrupted nighttime sleep due to pain with moving Short Term Goal (STG) Pt will be educated and demonstrate improved sitting posture, with modifications to her lying posture with support of towel rolls for comfort in bed. STG Duration 02/14/21 (02/18/21: MET GOAL) Longterm Goal (LTG) Pt will be able to move in bed without back pain. (02/20/21: 75-80% better). LTG Duration 04/28/21 (02/20/21: Improved) Two Impairment Decreased sitting tolerance due to pain Short Term Goal (STG) Pt will be able to sit for 20- 30' without onset of back/ lower abdominal or anterior thigh pain. STG Duration 02/21/21 Longterm Goal (LTG) Pt will be able to sit for 45' without onset of back/lower abdominal or anterior thigh pain LTG Duration 04/28/21 One Impairment Pt lacks an independent self care HEP. Short Term Goal (STG) Pt will be educated in proper body mechanics. STG Duration 02/07/21 (02/04/21: MET GOAL) Printing Manager Goal (LTG) Pt will be independent in a self care HEP for PF strengthening. (02/04/21: Added Hamstring stretch & self QL/lateral trunk self manual stretch) (02/20/21: Added Piriformis & lateral hip stretch; Kegels long holds and Quick Flicks; and urge deference technique). LTG Duration 04/28/21 (02/20/21: Progressed). Progress Towards Goals Progress Comments Progressed HEP. Decrease LBP 75-80% while moving in bed. Assessment Summary Assessment Pt appears to be better at not over exercising, with a reduction in pain. She still has poor habits of picking up objects off the floor and needs cuig for transfers to not breathhold Physical Therapy Plan Frequency and Duration Frequency of Treatment 2x/Week Plan of Care Start Date 01/28/21 Plan of Care End Date 04/28/21 Next Visit Focus/Plan Next Note Type Treatment Note Next Visit Plan Pt will be leaving Feb 19 - sec week of Mar; therefore focus on placing the pt on a self care program to be done over the hol weeks. Continue to monitor/practice for proper breathing to minimize PF pressures with functional activities. Review HEP issued: hip mobility (rotation). Add to HEP: low back mobility ex & progress towards strengthening exercises as tolerate, & standing hamstring stretch position for PF strengthening periodically when required sitting for prolonged time.
--- NOTE | 2021-02-24 16:38 | PT.OTN ---
Current Diagnoses Low back pain, unspecified (02/24/21) Stress incontinence (female) (male) (02/24/21) Lower abdominal pain, unspecified (02/24/21) Physical Therapy Treatment Note PT-OP-A Visit Information Start: 01/27/21 17:48 Freq: Status: Active Protocol: Document 02/24/21 11:24 LRN (Rec: 02/24/21 12:23 LRN [id number]) Out-Patient Physical Therapy Visit Information Visit Information Visit Type Treatment Note Visit Start Time 11:24 Visit Stop Time 12:11 Total Visit Minutes 47 Visit Number 6 Evaluation Information Evaluation Date 01/28/21 Precautions Precautions Osteopenia, sudden onset of bilateral back/abdominal/upper thigh pain. PT-OP-B Current Condition Start: 01/27/21 17:48 Freq: Status: Active Protocol: Document 01/28/21 10:31 LRN (Rec: 01/28/21 11:29 LRN [id number]) Current Condition History of Current Condition Onset Date 12/10/20 Current Complaints Back, lower abdomen, anterior thigh pain, expecially when sitting. History of Current Condition Insidious onset of lower back pain that radiates to lower abdomen and thigh. She had a UTI that is reportedly resolved. Her low back, lower abdomen, and anterior thigh pain has persisted. When she uses the bathroom in the morning her pain is relieved a little, but is still present. She feels weak in her thighs. She reports having a bowel movement every morning with a normal stool type 4 if she is taking Metamucil (2 capsules 2x/day), otherwise she reports constipation. 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 Walking pain is minimal at 1/10. Prior Treatments and Tests X-rays showed - Lumbar spine without acute fracture or malalignment. Multilevel lumbar spondylosis. Physical therapy for neck pain at a local outpatient clinic and was issued a HEP. Future Testing and Treatments Planned None Developmental History Developmental History Has osteopenia. Starting to have a lot of pain and things going on. She is scheduled for a Covid booster Dec 6 and a shingles shot tomorrow. Treatment Goals Patient/Caregiver Goals Pt goal with therapy: Decrease back abdominal to sit for 45' wtihout onset of back /lower abdominal pain; be able to move in bed without pain. Prior Functional Status Baseline Function- ADL's Independent Baseline Function- Mobility Independent Baseline Function- Work/School Retired Baseline Function- Recreation/Hobbies Walked (2-3 miles, 1 hr) and did Eliptical (2 miles for 45' ) every other day. Baseline Function- Other Able to sit for any amount of time and able to move in bed without low back pain. Wore pantiliners for years for small urinary leakage. Current Functional Impairments (Reported) Functional Limitations- ADL's Hinders ability to sit and lie . Can feel pain immediately but tolerable. Pain after 30' must move to relieve pain in back and lower abdomen. Sleep interrupted by back pain when changing positions. Urinary leakage is more. Functional Limitations- Recreation/ Stretching with U-tube and Hobbies neck stretches. Functional Limitations- Other Urinary leakage with coughing or carrying grandkids and sometimes wets pantiliners. Personal Factors Other Personal Factors That May Effect History of neck pain Therapy/Recovery Osteopenia Recent UTI Hysterectomy 2011 PT-OP-C Subjective Start: 01/27/21 17:48 Freq: Status: Active Protocol: Document 02/24/21 11:24 LRN (Rec: 02/24/21 12:23 LRN [id number]) OP-PT Subjective Patient Comments Patient Comments Driving to therapy could feel mild pain, did not have pillow to place in sacral area. Does not feel pain in lower abdomen and urinary leakage is less. After sitting can sit longer (30') with pain level 3 -4/10. When change positions, it helps decreased pain to 2- 3/10. Has had BM this morning . PT-OP-H Neuro Start: 01/27/21 17:48 Freq: Status: Active Protocol: Document 01/28/21 10:31 LRN (Rec: 01/28/21 11:29 LRN [id number]) Sensation Evaluation Gross Sensation Gross Sensation WNL PT-OP-J Posture/Palpation/Skin Start: 01/27/21 17:48 Freq: Status: Active Protocol: Document 02/14/21 12:49 LRN (Rec: 02/14/21 13:35 LRN [id number]) Palpation Assessment Location PF Palpation Location External and internal PF Palpation Details No tenderness. Bladder cystocele grade II. Dry external tissues. PT-OP-K Range of Motion Start: 01/27/21 17:48 Freq: Status: Active Protocol: Document 01/28/21 10:31 LRN (Rec: 01/28/21 11:29 LRN [id number]) Lumbar Spine Range of Motion Lumbar Spine Active Degrees Flexion 88 Extension 12 Rotation Left 45 Rotation Right 30 Lateral Flexion Left 22 Lateral Flexion Right 18 Comments 88/55 - Hamstrings tight 12/2 - Sacral pain SB had buttock pain on side bending to. Hip Goniometric Range of Motion Hip Right Passive Testing Position Supine Straight Leg Raise 88 Internal Rotation 30 External Rotation 75 Left Passive Testing Position Supine Straight Leg Raise 88 Internal Rotation 40 External Rotation 70 PT-OP-M Strength Start: 01/27/21 17:48 Freq: Status: Active Protocol: Document 01/28/21 10:31 LRN (Rec: 01/28/21 11:29 LRN [id number]) Trunk Strength Trunk Manual Muscle Testing Testing Position Supine Core Stabilization Not able to maintain stability with rotation during hip strength testing. Hip Strength Hip Manual Muscle Testing Right Adduction 3+ Fair+ Comments Generally 5/5 except as indicated above Left Abduction 3 Fair Adduction 3- Fair- Comments Generally 5/5 except as indicated above PT-OP-Q Treatments Start: 01/27/21 17:48 Freq: Status: Active Protocol: Document 02/24/21 11:24 LRN (Rec: 02/24/21 12:23 LRN [id number]) Cardio Equipment Treadmill Duration (Minutes) 8 Speed 2.3 Incline 0 (v cuing for breathing) Other Swinging arms. Start: Only LBP rated 1-2/10 Therapeutic Exercises Supine Exercises Lateral hip stretch Supine Exercise Name Lateral Hip stretch (R>L) Side bilateral Reps/Minutes 4' Comments Phys & v cuing needed to keep trunk neutral. Piriformis stretch Supine Exercise Name Piriformis stretch - ankle crossed over opposite leg (R>L ) Side bilateral Reps/Minutes 4' Comments Pt getting stretch in start position Hamstring/LE neural stretch Supine Exercise Name Hamstring/LE neural stretch Side bilateral Reps/Minutes 4' Comments V cuing to keep stretch applied with ankle pumps and not to lower leg. Sitting Exercises LE Roll in/out w/breathing rhythm Sitting Exercise Name LE roll in/breath in (belly out)/knees out > reverse directions Reps/Minutes 12' Comments Much v cuing and phys cuing for concept traingin. Manual Therapy Treatment Manual Traction Lumbar Details Traction with belt around knees Body Position Hooklying Reps/Duration 9' Comments 6' Intermittent manual traction 3' Static traction at end of treatment with legs up on LE traction stool. Self-Care/Home Management Treatment Education Patient Education Home Exercise Program Other Education See sitting ex for training of proper breathing rhythem with LE roll in/out/PF contraction . Educated pt in proper sitting posture, cuing sacrum for L/S ext. Recommended different ways to provide L/S support in sitting for car/plane. Activities Self-Care/Home Management Activities HEP: Supine LE Roll in/out & Sitting PF tightening with LE roll in/out/proper breathing rhythm. PT-OP-R Modalities Start: 01/27/21 17:48 Freq: Status: Active Protocol: Document 02/18/21 09:10 LRN (Rec: 02/18/21 10:03 LRN [id number]) Hot Pack/Cold Pack Treatment Hot Pack Location Low back Patient Position Hooklying Treatment Duration (minutes) 10 Patient Tolerance Good Comments Legs on bolster. PT-OP-T Assessment and Plan Start: 01/27/21 17:48 Freq: Status: Active Protocol: Document 02/24/21 11:24 LRN (Rec: 02/24/21 12:23 LRN [id number]) Physical Therapy Assessment Goals Three Impairment Interrupted nighttime sleep due to pain with moving Short Term Goal (STG) Pt will be educated and demonstrate improved sitting posture, with modifications to her lying posture with support of towel rolls for comfort in bed. STG Duration 02/14/21 (02/18/21: MET GOAL) Portfolio Director Goal (LTG) Pt will be able to move in bed without back pain. (02/20/21: 75-80% better). LTG Duration 04/28/21 (02/20/21: Improved) Two Impairment Decreased sitting tolerance due to pain Short Term Goal (STG) Pt will be able to sit for 20- 30' without onset of back/ lower abdominal or anterior thigh pain. (02/24/21: Pt sits for 30' with LBP 3-4/10, no lower abdominal or anterior thigh pain. initial was 2-6/10) STG Duration 02/21/21 (02/24/21: Improved ) Mcfp Goal (LTG) Pt will be able to sit for 45' without onset of back/lower abdominal or anterior thigh pain LTG Duration 04/28/21 One Impairment Pt lacks an independent self care HEP. Short Term Goal (STG) Pt will be educated in proper body mechanics. STG Duration 02/07/21 (02/04/21: MET GOAL) Portfolio Director Goal (LTG) Pt will be independent in a self care HEP for PF strengthening. (02/04/21: Added Hamstring stretch & self QL/lateral trunk self manual stretch) (02/20/21: Added Piriformis & lateral hip stretch; Kegels long holds and Quick Flicks; and urge deference technique). LTG Duration 04/28/21 (02/20/21: Progressed). Progress Towards Goals Progress Comments STG #2: Improved, Pt sits for 30' with LBP 3-4/10 ( initially was 2-6/10). No complaints of lower abdominal or anterior thigh pain. Assessment Summary Assessment Noted sacrum is in extension with gait on TM. Pt is not providing support to the LB when in sitting; therefore probably causing LBP. Manual lumbar traction and static self traction relieves LBP. Abdominal and anterior thigh pain appears resolved with PF strengthening. Poor coordination of proper breathing with LE roll in/outs (breath in/abdomen out/knees out and breathing out is reversed), but pt aware and will work on improving rhythm. Core stabilization needed for airplane trip. Physical Therapy Plan Frequency and Duration Frequency of Treatment 2x/Week Plan of Care Start Date 01/28/21 Plan of Care End Date 04/28/21 Next Visit Focus/Plan Next Note Type Treatment Note Next Visit Plan Pt will be leaving Mar 02 - mar; therefore focus on placing the pt on a self care program to be done over the holiday weeks. Review HEP issued: LE roll in/outs/proper breathing, Add PF contraction if pt not recalled or review if pt remembers to do. Add to HEP: low back strengthening exercises (prone press ups/Core stab), & standing hamstring stretch position for PF strengthening periodically when required sitting for prolonged time.
--- NOTE | 2021-04-01 14:58 | PT.OTN ---
Current Diagnoses Low back pain, unspecified (04/01/21) Stress incontinence (female) (male) (04/01/21) Lower abdominal pain, unspecified (04/01/21) Physical Therapy Treatment Note PT-OP-A Visit Information Start: 01/27/21 17:48 Freq: Status: Active Protocol: Document 04/01/21 12:49 LRN (Rec: 04/01/21 13:30 LRN [id number]) Out-Patient Physical Therapy Visit Information Visit Information Visit Type Treatment Note Visit Note Pt 4 min late Visit Start Time 12:49 Visit Stop Time 13:25 Total Visit Minutes 36 Visit Number 7 Evaluation Information Evaluation Date 01/28/21 Precautions Precautions Osteopenia, sudden onset of bilateral back/abdominal/upper thigh pain. PT-OP-B Current Condition Start: 01/27/21 17:48 Freq: Status: Active Protocol: Document 01/28/21 10:31 LRN (Rec: 01/28/21 11:29 LRN [id number]) Current Condition History of Current Condition Onset Date 12/10/20 Current Complaints Back, lower abdomen, anterior thigh pain, expecially when sitting. History of Current Condition Insidious onset of lower back pain that radiates to lower abdomen and thigh. She had a UTI that is reportedly resolved. Her low back, lower abdomen, and anterior thigh pain has persisted. When she uses the bathroom in the morning her pain is relieved a little, but is still present. She feels weak in her thighs. She reports having a bowel movement every morning with a normal stool type 4 if she is taking Metamucil (2 capsules 2x/day), otherwise she reports constipation. 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 Walking pain is minimal at 1/10. Prior Treatments and Tests X-rays showed - Lumbar spine without acute fracture or malalignment. Multilevel lumbar spondylosis. Physical therapy for neck pain at a local outpatient clinic and was issued a HEP. Future Testing and Treatments Planned None Developmental History Developmental History Has osteopenia. Starting to have a lot of pain and things going on. She is scheduled for a Covid booster Dec 6 and a shingles shot tomorrow. Treatment Goals Patient/Caregiver Goals Pt goal with therapy: Decrease back abdominal to sit for 45' wtihout onset of back /lower abdominal pain; be able to move in bed without pain. Prior Functional Status Baseline Function- ADL's Independent Baseline Function- Mobility Independent Baseline Function- Work/School Retired Baseline Function- Recreation/Hobbies Walked (2-3 miles, 1 hr) and did Eliptical (2 miles for 45' ) every other day. Baseline Function- Other Able to sit for any amount of time and able to move in bed without low back pain. Wore pantiliners for years for small urinary leakage. Current Functional Impairments (Reported) Functional Limitations- ADL's Hinders ability to sit and lie . Can feel pain immediately but tolerable. Pain after 30' must move to relieve pain in back and lower abdomen. Sleep interrupted by back pain when changing positions. Urinary leakage is more. Functional Limitations- Recreation/ Stretching with U-tube and Hobbies neck stretches. Functional Limitations- Other Urinary leakage with coughing or carrying grandkids and sometimes wets pantiliners. Personal Factors Other Personal Factors That May Effect History of neck pain Therapy/Recovery Osteopenia Recent UTI Hysterectomy 2011 PT-OP-C Subjective Start: 01/27/21 17:48 Freq: Status: Active Protocol: Document 04/01/21 12:49 LRN (Rec: 04/01/21 13:30 LRN [id number]) OP-PT Subjective Patient Comments Patient Comments Sitting on the airline flight was good there, on the way back she layed down and slept and felt fine getting off plane. Pt's concern is with driving and sitting. She puts something on her back for support but feels she has pressure on the rectum. PT-OP-H Neuro Start: 01/27/21 17:48 Freq: Status: Active Protocol: Document 01/28/21 10:31 LRN (Rec: 01/28/21 11:29 LRN [id number]) Sensation Evaluation Gross Sensation Gross Sensation WNL PT-OP-J Posture/Palpation/Skin Start: 01/27/21 17:48 Freq: Status: Active Protocol: Document 04/01/21 12:49 LRN (Rec: 04/01/21 13:30 LRN [id number]) Palpation Assessment Location PF Palpation Location External and internal PF Palpation Details No tenderness. Bladder grade II. Mildly Dry external tissues. PSIS Palpation Location PSIS's Palpation Details ALA: R is deep MARIA DEL CARMEN: R is deep Sacrum in R sidebend. ASIS Palpation Location ASIS's Palpation Details Deep R and Inflared PT-OP-K Range of Motion Start: 01/27/21 17:48 Freq: Status: Active Protocol: Document 01/28/21 10:31 LRN (Rec: 01/28/21 11:29 LRN [id number]) Lumbar Spine Range of Motion Lumbar Spine Active Degrees Flexion 88 Extension 12 Rotation Left 45 Rotation Right 30 Lateral Flexion Left 22 Lateral Flexion Right 18 Comments 88/55 - Hamstrings tight 12/2 - Sacral pain SB had buttock pain on side bending to. Hip Goniometric Range of Motion Hip Right Passive Testing Position Supine Straight Leg Raise 88 Internal Rotation 30 External Rotation 75 Left Passive Testing Position Supine Straight Leg Raise 88 Internal Rotation 40 External Rotation 70 PT-OP-M Strength Start: 01/27/21 17:48 Freq: Status: Active Protocol: Document 01/28/21 10:31 LRN (Rec: 01/28/21 11:29 LRN [id number]) Trunk Strength Trunk Manual Muscle Testing Testing Position Supine Core Stabilization Not able to maintain stability with rotation during hip strength testing. Hip Strength Hip Manual Muscle Testing Right Adduction 3+ Fair+ Comments Generally 5/5 except as indicated above Left Abduction 3 Fair Adduction 3- Fair- Comments Generally 5/5 except as indicated above PT-OP-Q Treatments Start: 01/27/21 17:48 Freq: Status: Active Protocol: Document 04/01/21 12:49 LRN (Rec: 04/01/21 13:30 LRN [id number]) Therapeutic Exercises Supine Exercises L hip stretch into ER Supine Exercise Name OI stretch - contract relax stretch Side left Reps/Minutes 3' Happy Baby Pose Supine Exercise Name Happy Baby Pose Side bilateral Reps/Minutes 2' Manual Therapy Treatment Soft Tissue Mobilization Flossing L Pudendal n. Body Location Flossing L pudendal nerve Mobilization Type Myofascial Release Intensity/Depth Superficial Body Position Hooklying Obturator Internus Body Location Pedro OI Mobilization Type Strumming,Sustained Pressure Intensity/Depth Superficial Body Position Hooklying Comments Pain reproduced in the buttocks with stretch. Self-Care/Home Management Treatment Education Patient Education Home Exercise Program Other Education Pt education and discussion of proper bowel care with extra discussion on increasing fiber in diet with intake of meat that pt notes promotes constipation. Reviewed proper fluid intake amounts. Reviewed changing of positioning to engage anterior PF > posterior PF. Activities Self-Care/Home Management Activities I/S in Happy baby pose and to increase fiber in diet to decrease symptoms of constipation, continued use of low back support and proper fluid intake. I/S pt in doing PF strengthening with focus on anterior PF (hips in IR and pelvis in anterior tilt). PT-OP-R Modalities Start: 01/27/21 17:48 Freq: Status: Active Protocol: Document 02/18/21 09:10 LRN (Rec: 02/18/21 10:03 LRN [id number]) Hot Pack/Cold Pack Treatment Hot Pack Location Low back Patient Position Hooklying Treatment Duration (minutes) 10 Patient Tolerance Good Comments Legs on bolster. PT-OP-T Assessment and Plan Start: 01/27/21 17:48 Freq: Status: Active Protocol: Document 04/01/21 12:49 LRN (Rec: 04/01/21 13:30 LRN [id number]) Physical Therapy Assessment Goals Three Impairment Interrupted nighttime sleep due to pain with moving Short Term Goal (STG) Pt will be educated and demonstrate improved sitting posture, with modifications to her lying posture with support of towel rolls for comfort in bed. STG Duration 02/14/21 (02/18/21: MET GOAL) Colon And Rectal Surgeon Goal (LTG) Pt will be able to move in bed without back pain. (02/20/21: 75-80% better). LTG Duration 04/28/21 (02/20/21: Improved) Two Impairment Decreased sitting tolerance due to pain Short Term Goal (STG) Pt will be able to sit for 20- 30' without onset of back/ lower abdominal or anterior thigh pain. (02/24/21: Pt sits for 30' with LBP 3-4/10, no lower abdominal or anterior thigh pain. initial was 2-6/10). (04/01/21: With sitting 30' or more, pt has pressure pain in buttocks). STG Duration 02/21/21 (04/01/21: Improved) Halfway Goal (LTG) Pt will be able to sit for 45' without onset of back/lower abdominal or anterior thigh pain LTG Duration 04/28/21 One Impairment Pt lacks an independent self care HEP. Short Term Goal (STG) Pt will be educated in proper body mechanics. STG Duration 02/07/21 (02/04/21: MET GOAL) Halfway Goal (LTG) Pt will be independent in a self care HEP for PF strengthening. (02/04/21: Added Hamstring stretch & self QL/lateral trunk self manual stretch) (02/20/21: Added Piriformis & lateral hip stretch; Kegels long holds and Quick Flicks; and urge deference technique). (04/01/21: Added HEP of Happy Baby Pose) LTG Duration 04/28/21 (04/01/21: Progressed). Assessment Summary Assessment Pt buttock pain reproduced with manual stretch to L Obturator Internus (OI) and stretch of L hip ER/Flex, and Happy Baby Pose L is tighter than R. Her posterior PF appears tight and at Transverse Perineum. She doesn't have tenderness except for at the L. Obturator Internus. Pt describes constipation in her bowel movements even with use of Metamucil when she eats meat; therefore pt needs to improve her fiber intake (vegetables) when eating meat. Her fluid intake appears to be appropriate. Pt needs less strengthening of Posterior PF and improve her consistency of normal bowel types. Physical Therapy Plan Frequency and Duration Frequency of Treatment 2x/Week Plan of Care Start Date 01/28/21 Plan of Care End Date 04/28/21 Next Visit Focus/Plan Next Note Type Treatment Note Next Visit Plan Review I/S ex of Happy Baby Pose. If pt has poor recall, issue handout. Review HEP issued: LE roll in/outs/proper breathing, Add anterior PF contraction if pt not recalled or review if pt remembers to do. Add to HEP: low back strengthening exercises (prone press ups/Core stab), & standing hamstring stretch position for PF strengthening periodically when required sitting for prolonged time.
--- NOTE | 2021-04-04 18:12 | PT.OTN ---
Current Diagnoses Low back pain, unspecified (04/04/21) Stress incontinence (female) (male) (04/04/21) Lower abdominal pain, unspecified (04/04/21) Physical Therapy Treatment Note PT-OP-A Visit Information Start: 01/27/21 17:48 Freq: Status: Active Protocol: Document 04/04/21 13:36 LRN (Rec: 04/04/21 14:29 LRN [id number]) Out-Patient Physical Therapy Visit Information Visit Information Visit Type Treatment Note Visit Start Time 13:36 Visit Stop Time 14:29 Total Visit Minutes 53 Visit Number 8 Evaluation Information Evaluation Date 01/28/21 Precautions Precautions Osteopenia, sudden onset of bilateral back/abdominal/upper thigh pain. PT-OP-B Current Condition Start: 01/27/21 17:48 Freq: Status: Active Protocol: Document 04/04/21 13:36 LRN (Rec: 04/04/21 14:29 LRN [id number]) Current Condition History of Current Condition Onset Date 12/10/20 Current Complaints Back, lower abdomen, anterior thigh pain, expecially when sitting. History of Current Condition Insidious onset of lower back pain that radiates to lower abdomen and thigh. She had a UTI that is reportedly resolved. Her low back, lower abdomen, and anterior thigh pain has persisted. When she uses the bathroom in the morning her pain is relieved a little, but is still present. She feels weak in her thighs. She reports having a bowel movement every morning with a normal stool type 4 if she is taking Metamucil (2 capsules 2x/day), otherwise she reports constipation. 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 Walking pain is minimal at 1/10. Prior Treatments and Tests X-rays showed - Lumbar spine without acute fracture or malalignment. Multilevel lumbar spondylosis. Physical therapy for neck pain at a local outpatient clinic and was issued a HEP. Future Testing and Treatments Planned Doppler 04/29/20: L lower leg to check for DVT. PT-OP-C Subjective Start: 01/27/21 17:48 Freq: Status: Active Protocol: Document 04/04/21 13:36 LRN (Rec: 04/04/21 14:29 LRN [id number]) OP-PT Subjective Patient Comments Patient Comments States pressure with sitting is less, but didn't go anywhere in the car. Gardening 3 hrs yesterday and 1 hr today. C/O L LE pain from buttock to hip and pain in UE's. Pain in L Lateral trunk pain sometimes when burps; massage helps relieve pain. States she had total hysterectomy, years afterwards started to hurt L side of body. Pulling weeds uses L side for gardening ( only uses R hand to write). Night of last session had pain at dinner, but at night in bed didn't have pain but had pressure in L buttock, not R buttock. PT-OP-H Neuro Start: 01/27/21 17:48 Freq: Status: Active Protocol: Document 01/28/21 10:31 LRN (Rec: 01/28/21 11:29 LRN [id number]) Sensation Evaluation Gross Sensation Gross Sensation WNL PT-OP-J Posture/Palpation/Skin Start: 01/27/21 17:48 Freq: Status: Active Protocol: Document 04/01/21 12:49 LRN (Rec: 04/01/21 13:30 LRN [id number]) Palpation Assessment Location PF Palpation Location External and internal PF Palpation Details No tenderness. Bladder grade II. Mildly Dry external tissues. PSIS Palpation Location PSIS's Palpation Details ALA: R is deep MARIA DEL CARMEN: R is deep Sacrum in R sidebend. ASIS Palpation Location ASIS's Palpation Details Deep R and Inflared PT-OP-K Range of Motion Start: 01/27/21 17:48 Freq: Status: Active Protocol: Document 01/28/21 10:31 LRN (Rec: 01/28/21 11:29 LRN [id number]) Lumbar Spine Range of Motion Lumbar Spine Active Degrees Flexion 88 Extension 12 Rotation Left 45 Rotation Right 30 Lateral Flexion Left 22 Lateral Flexion Right 18 Comments 88/55 - Hamstrings tight 12/2 - Sacral pain SB had buttock pain on side bending to. Hip Goniometric Range of Motion Hip Right Passive Testing Position Supine Straight Leg Raise 88 Internal Rotation 30 External Rotation 75 Left Passive Testing Position Supine Straight Leg Raise 88 Internal Rotation 40 External Rotation 70 PT-OP-M Strength Start: 01/27/21 17:48 Freq: Status: Active Protocol: Document 01/28/21 10:31 LRN (Rec: 01/28/21 11:29 LRN [id number]) Trunk Strength Trunk Manual Muscle Testing Testing Position Supine Core Stabilization Not able to maintain stability with rotation during hip strength testing. Hip Strength Hip Manual Muscle Testing Right Adduction 3+ Fair+ Comments Generally 5/5 except as indicated above Left Abduction 3 Fair Adduction 3- Fair- Comments Generally 5/5 except as indicated above PT-OP-Q Treatments Start: 01/27/21 17:48 Freq: Status: Active Protocol: Document 04/04/21 13:36 LRN (Rec: 04/04/21 14:29 LRN [id number]) Therapeutic Exercises Supine Exercises L hip stretch into ER Supine Exercise Name OI stretch - contract relax stretch Side left Reps/Minutes 3' Happy Baby Pose Supine Exercise Name Happy Baby Pose Side bilateral Reps/Minutes 2' Manual Therapy Treatment Soft Tissue Mobilization Flossing L Pudendal n. Body Location Flossing L pudendal nerve Mobilization Type Myofascial Release Intensity/Depth Superficial Body Position Hooklying Obturator Internus Body Location Pedro OI Mobilization Type Strumming,Sustained Pressure Intensity/Depth Superficial Body Position Hooklying Comments Pain reproduced in the buttocks with stretch. Lower abdominal scar Body Location scar Mobilization Type Cross-Friction,Myofascial Release,Strumming Intensity/Depth Moderate Body Position Supine Lower abdomen Body Location Bladder, Urachus Mobilization Type Myofascial Release Body Position Supine Self-Care/Home Management Treatment Education Other Education Discussed gardening activities (timeline, body mechanics, rest times). PT-OP-R Modalities Start: 01/27/21 17:48 Freq: Status: Active Protocol: Document 02/18/21 09:10 LRN (Rec: 02/18/21 10:03 LRN [id number]) Hot Pack/Cold Pack Treatment Hot Pack Location Low back Patient Position Hooklying Treatment Duration (minutes) 10 Patient Tolerance Good Comments Legs on bolster. PT-OP-T Assessment and Plan Start: 01/27/21 17:48 Freq: Status: Active Protocol: Document 04/04/21 13:36 LRN (Rec: 04/04/21 14:29 LRN [id number]) Physical Therapy Assessment Goals Three Impairment Interrupted nighttime sleep due to pain with moving Short Term Goal (STG) Pt will be educated and demonstrate improved sitting posture, with modifications to her lying posture with support of towel rolls for comfort in bed. STG Duration 02/14/21 (02/18/21: MET GOAL) Brick Tender Goal (LTG) Pt will be able to move in bed without back pain. (02/20/21: 75-80% better). (04/04/20: No LBP, just pressure on L buttocks) LTG Duration 04/28/21 (04/04/20: Improved) Two Impairment Decreased sitting tolerance due to pain Short Term Goal (STG) Pt will be able to sit for 20- 30' without onset of back/ lower abdominal or anterior thigh pain. (02/24/21: Pt sits for 30' with LBP 3-4/10, no lower abdominal or anterior thigh pain. initial was 2-6/10). (04/01/21: With sitting 30' or more, pt has pressure pain in buttocks). STG Duration 02/21/21 (04/01/21: Improved) Brick Tender Goal (LTG) Pt will be able to sit for 45' without onset of back/lower abdominal or anterior thigh pain LTG Duration 04/28/21 One Impairment Pt lacks an independent self care HEP. Short Term Goal (STG) Pt will be educated in proper body mechanics. STG Duration 02/07/21 (02/04/21: MET GOAL) Jail Goal (LTG) Pt will be independent in a self care HEP for PF strengthening. (02/04/21: Added Hamstring stretch & self QL/lateral trunk self manual stretch) (02/20/21: Added Piriformis & lateral hip stretch; Kegels long holds and Quick Flicks; and urge deference technique). (04/01/21: Added HEP of Happy Baby Pose) LTG Duration 04/28/21 (04/01/21: Progressed). Assessment Summary Assessment Pt attends with flare up of L low back and hip, probably from new activity of gardinening for 3 hrs one day and 1 hr the next day. Today the pt presents with tight left PF and Obturator Internus . + response to therapy with no pain after therapy. Pt needs to modify activities that she starts for the first time to prevent flare ups. Pt appears to have a good understanding of Happy Baby Pose stretch; therefore handout not needed. Physical Therapy Plan Frequency and Duration Frequency of Treatment 2x/Week Plan of Care Start Date 01/28/21 Plan of Care End Date 04/28/21 Next Visit Focus/Plan Next Note Type Treatment Note Next Visit Plan Review HEP issued: LE roll in/outs/proper breathing, Add anterior PF contraction if pt not recalled or review if pt remembers to do. Add to HEP: low back strengthening exercises (prone press ups/Core stab), & standing hamstring stretch position for PF strengthening periodically when required sitting for prolonged time.
--- NOTE | 2021-05-09 15:54 | PT-OP ANOTE ---
Per phone conversation the pt states she wanted to see if she could improve by doing the ex's at home, and feels she is better and doesn't need further therapy. Pt agreeable to DC from PT.
--- NOTE | 2021-05-09 16:05 | PT.OPDS ---
Current Diagnoses Low back pain, unspecified (04/04/21) Stress incontinence (female) (male) (04/04/21) Lower abdominal pain, unspecified (04/04/21) Visit Care Team Role Provider Type STEVEN Knight Attending Provider Advanced Business Assistant Family Provider Primary Care Provider Referring Provider Specialty: Family Practice Address: [address] [place] [address], [facility] Email: [email or web address] Visit Number Visit Number 8 Discharge Summary PT-OP-B Current Condition Start: 01/27/21 17:48 Freq: Status: Active Protocol: Document 04/04/21 13:36 LRN (Rec: 04/04/21 14:29 LRN [id number]) Current Condition History of Current Condition Onset Date 12/10/20 Current Complaints Back, lower abdomen, anterior thigh pain, expecially when sitting. History of Current Condition Insidious onset of lower back pain that radiates to lower abdomen and thigh. She had a UTI that is reportedly resolved. Her low back, lower abdomen, and anterior thigh pain has persisted. When she uses the bathroom in the morning her pain is relieved a little, but is still present. She feels weak in her thighs. She reports having a bowel movement every morning with a normal stool type 4 if she is taking Metamucil (2 capsules 2x/day), otherwise she reports constipation. She feels her legs are washer and crusher tender and not as stiff after U-tube stretching. Walking pain is minimal at 1/10. Prior Treatments and Tests X-rays showed - Lumbar spine without acute fracture or malalignment. Multilevel lumbar spondylosis. Physical therapy for neck pain at a local outpatient clinic and was issued a HEP. Future Testing and Treatments Planned Doppler 04/29/20: L lower leg to check for DVT. PT-OP-C Subjective Start: 01/27/21 17:48 Freq: Status: Active Protocol: Document 04/04/21 13:36 LRN (Rec: 04/04/21 14:29 LRN [id number]) OP-PT Subjective Patient Comments Patient Comments States pressure with sitting is less, but didn't go anywhere in the car. Gardening 3 hrs yesterday and 1 hr today. C/O L LE pain from buttock to hip and pain in UE's. Pain in L Lateral trunk pain sometimes when burps; massage helps relieve pain. States she had total hysterectomy, years afterwards started to hurt L side of body. Pulling weeds uses L side for gardening ( only uses R hand to write). Night of last session had pain at dinner, but at night in bed didn't have pain but had pressure in L buttock, not R buttock. PT-OP-H Neuro Start: 01/27/21 17:48 Freq: Status: Active Protocol: Document 01/28/21 10:31 LRN (Rec: 01/28/21 11:29 LRN [id number]) Sensation Evaluation Gross Sensation Gross Sensation WNL PT-OP-J Posture/Palpation/Skin Start: 01/27/21 17:48 Freq: Status: Active Protocol: Document 04/01/21 12:49 LRN (Rec: 04/01/21 13:30 LRN [id number]) Palpation Assessment Location PF Palpation Location External and internal PF Palpation Details No tenderness. Bladder grade II. Mildly Dry external tissues. PSIS Palpation Location PSIS's Palpation Details ALA: R is deep MARIA DEL CARMEN: R is deep Sacrum in R sidebend. ASIS Palpation Location ASIS's Palpation Details Deep R and Inflared PT-OP-K Range of Motion Start: 01/27/21 17:48 Freq: Status: Active Protocol: Document 01/28/21 10:31 LRN (Rec: 01/28/21 11:29 LRN [id number]) Lumbar Spine Range of Motion Lumbar Spine Active Degrees Flexion 88 Extension 12 Rotation Left 45 Rotation Right 30 Lateral Flexion Left 22 Lateral Flexion Right 18 Comments 88/55 - Hamstrings tight 12/2 - Sacral pain SB had buttock pain on side bending to. Hip Goniometric Range of Motion Hip Right Passive Testing Position Supine Straight Leg Raise 88 Internal Rotation 30 External Rotation 75 Left Passive Testing Position Supine Straight Leg Raise 88 Internal Rotation 40 External Rotation 70 PT-OP-M Strength Start: 01/27/21 17:48 Freq: Status: Active Protocol: Document 01/28/21 10:31 LRN (Rec: 01/28/21 11:29 LRN [id number]) Trunk Strength Trunk Manual Muscle Testing Testing Position Supine Core Stabilization Not able to maintain stability with rotation during hip strength testing. Hip Strength Hip Manual Muscle Testing Right Adduction 3+ Fair+ Comments Generally 5/5 except as indicated above Left Abduction 3 Fair Adduction 3- Fair- Comments Generally 5/5 except as indicated above PT-OP-T Assessment and Plan Start: 01/27/21 17:48 Freq: Status: Active Protocol: Document 05/09/21 15:55 LRN (Rec: 05/09/21 16:04 LRN [id number]) Physical Therapy Assessment Goals Three Impairment Interrupted nighttime sleep due to pain with moving Short Term Goal (STG) Pt will be educated and demonstrate improved sitting posture, with modifications to her lying posture with support of towel rolls for comfort in bed. STG Duration 02/14/21 (02/18/21: MET GOAL) Telegraph Operator Goal (LTG) Pt will be able to move in bed without back pain. (02/20/21: 75-80% better). (04/04/20: No LBP, just pressure on L buttocks) LTG Duration 04/28/21 (05/09/21: Improved, pt not available for final assessment) Two Impairment Decreased sitting tolerance due to pain Short Term Goal (STG) Pt will be able to sit for 20- 30' without onset of back/ lower abdominal or anterior thigh pain. (02/24/21: Pt sits for 30' with LBP 3-4/10, no lower abdominal or anterior thigh pain. initial was 2-6/10). (04/01/21: With sitting 30' or more, pt has pressure pain in buttocks). STG Duration 02/21/21 (05/09/21: Improved, pt not available for final assessment) Telegraph Operator Goal (LTG) Pt will be able to sit for 45' without onset of back/lower abdominal or anterior thigh pain LTG Duration 04/28/21 (05/09/21: Pt not available for final assessment ) One Impairment Pt lacks an independent self care HEP. Short Term Goal (STG) Pt will be educated in proper body mechanics. STG Duration 02/07/21 (02/04/21: MET GOAL) Telegraph Operator Goal (LTG) Pt will be independent in a self care HEP for PF strengthening. (02/04/21: Added Hamstring stretch & self QL/lateral trunk self manual stretch) (02/20/21: Added Piriformis & lateral hip stretch; Kegels long holds and Quick Flicks; and urge deference technique). (04/01/21: Added HEP of Happy Baby Pose) LTG Duration 04/28/21 (05/09/21: MET GOAL) . Assessment Summary Assessment Pt was seen for 7 treatment visits with the last visit on 04/04/21. She reports per phone conversation that she is better and is now able to manage her condition on her home ex program. On her last attended visit she was in a flare up from gardening, but by end of therapy she reported no pain. She had a tight left Pelvic Floor and Obturator Internus. The pt appeared to have a good understanding of her HEP. Today the pt was agreeable to discharge from physical therapy to her independent self care HEP. No further therapy is planned. [ End ] Physical Therapy Plan Discharge Physical Therapy Discharge Reasons Patient Request Discharge Comments Pt feels she is able to manage her condition on her home program and is agreeable to discharge from PT. She is aware that if she needs to resume PT she will need a new referral. Thank you for your referral.
== END 2021-05-12 09:31 ==
LOC: PHYS 13:30
PROVIDERS: Family Provider Nurse Practitioner Family; PCP Nurse Practitioner Family; Referring Provider Nurse Practitioner Family; Visit Provider Nurse Practitioner Family
DX: M54.50 Low back pain, unspecified (principal); N39.3 Stress incontinence (female) (male); R10.30 Lower abdominal pain, unspecified
CPT/HCPCS: 97110; 97140; 97162; 97535

== ENCOUNTER → 2021-05-09 10:21 | Outpatient (CLI) | payer MEDICARE, OTHER, SELFPAY ==
[2021-05-09 12:10] LABS: Alanine Aminotransferase 22 IU/L (<35); Albumin 4.6 g/dL (3.5-5.0); Albumin Globulin Ratio 1.3 (1.0-2.8); Alkaline Phosphatase 60 U/L (38-126); Aspartate Aminotransferase 30 IU/L (14-36); Bilirubin Total 0.5 mg/dL (0.2-1.3); Blood Urea Nitrogen 19 mg/dL (7-17); Calcium 9.3 mg/dL (8.4-10.2); Carbon Dioxide 31 mmol/L (22-32); Chloride 105 mmol/L (98-107); Cholesterol 220 mg/dL (140-199); Estimated Glomerular Filt Rate > 60.0 mL/min (>60); Globulin 3.5 g/dL (1.7-4.1); Glucose 110 mg/dL (80-110); HDL Cholesterol 50 mg/dL (40-60); HEMOLYSIS < 15 (0-50); LDL Cholesterol Calculated 148 mg/dL (<100); Sodium 141 mmol/L (137-145); Total Protein 8.1 g/dL (6.3-8.2); Triglycerides 109 mg/dL (35-150)
[2021-05-09 13:29] LABS: TSH w/ Reflex to FT4 2.39 uIU/mL (0.47-4.68)
[2021-05-09 14:24] LABS: Vitamin D 25 Hydroxy (D3) 44.1 ng/mL (30.0-100.0)
== END ==
PROVIDERS: Family Provider Nurse Practitioner Family; PCP Nurse Practitioner Family; Referring Provider Nurse Practitioner Family; Visit Provider Nurse Practitioner Family
DX: E78.2 Mixed hyperlipidemia (principal); Z79.899 Other long term (current) drug therapy; Z00.00 Encounter for general adult medical examination without abnormal findings; M81.0 Age-related osteoporosis without current pathological fracture
CPT/HCPCS: 36415; 80053; 80061; 82306; 84443

== ENCOUNTER → 2021-09-11 10:24 | Outpatient (CLI) | payer MEDICARE, OTHER, SELFPAY ==
--- NOTE | 2021-09-11 10:26 | DI.MG.S_ITS ---
BILATERAL DIGITAL SCREENING MAMMOGRAM 3D/2D WITH CAD: 09/11/2021 CLINICAL: Routine screening. Comparison is made to exams dated: 06/04/2020 mammogram, 06/02/2019 mammogram, and 05/18/2019 mammogram - [facility]. The tissue of both breasts is heterogeneously dense. This may lower the sensitivity of mammography. Current study was also evaluated with a Computer Aided Detection (CAD) system. No significant masses, calcifications, or other findings are seen in either breast. There has been no significant interval change. IMPRESSION: NEGATIVE There is no mammographic evidence of malignancy. A 1 year screening mammogram is recommended. Based on the Tyrer Cuzick model (a risk assessment model) the patient's lifetime risk is 10.2% and her 10 year risk is 5.2%. According to the ACR, ACS, and NCCN guidelines, an annual breast MRI exam along with mammogram is recommended if the patient's lifetime risk is 20% or greater. This exam was interpreted at Station ID: [id number]. NOTE: For mammograms, a report in lay terms will be sent to the patient. Approximately 15% of breast malignancies will not be visualized mammographically. In the management of a palpable breast mass, a negative mammogram must not discourage biopsy of a clinically suspicious lesion. Electronically Signed By: Saleem dacosta/[place]:09/11/2021 15:39:35 letter sent: Normal Exam ACR BI-RADS Category 1: Negative 3341F
[2021-09-11 11:08] LABS: Hematocrit 39.5 % (36-46); Hemoglobin 13.3 g/dL (12.0-16.0); Mean Corpuscular HGB Conc 33.6 % (30-36); Mean Corpuscular Hemoglobin 29.5 PG (26-34); Mean Corpuscular Volume 87.9 fL (80-100); Platelet Count 215 X10^3/uL (150-400); Red Cell Distribution Width 13.6 % (11.6-14.8); White Blood Cell Count 4.8 X10^3/uL (4.5-11.0)
[2021-09-11 11:50] LABS: Alanine Aminotransferase 20 IU/L (<35); Albumin 4.5 g/dL (3.5-5.0); Albumin Globulin Ratio 1.5 (1.0-2.8); Alkaline Phosphatase 60 U/L (38-126); Aspartate Aminotransferase 26 IU/L (14-36); BUN Creatinine Ratio 17.6 (6-22); Bilirubin Total 0.7 mg/dL (0.2-1.3); Blood Urea Nitrogen 13 mg/dL (7-17); Calcium 8.9 mg/dL (8.4-10.2); Carbon Dioxide 29 mmol/L (22-32); Chloride 102 mmol/L (98-107); Cholesterol 233 mg/dL (140-199); Estimated Glomerular Filt Rate > 60 mL/min (>60); Globulin 3.1 g/dL (1.7-4.1); Glucose 106 mg/dL (80-110); HDL Cholesterol 53 mg/dL (40-60); HEMOLYSIS < 15 (0-50); LDL Cholesterol Calculated 141 mg/dL (<100); Potassium 4.2 mmol/L (3.4-5.1); Sodium 139 mmol/L (137-145); Total Protein 7.6 g/dL (6.3-8.2); Triglycerides 194 mg/dL (35-150)
[2021-09-11 12:05] LABS: Vitamin D 25 Hydroxy (D3) 45.2 ng/mL (30.0-100.0)
== END ==
PROVIDERS: Family Provider Nurse Practitioner Family; PCP Pediatrics; Referring Provider Pediatrics; Visit Provider Pediatrics
DX: Z12.31 Encounter for screening mammogram for malignant neoplasm of breast (principal); Z13.6 Encounter for screening for cardiovascular disorders; M81.0 Age-related osteoporosis without current pathological fracture; D72.819 Decreased white blood cell count, unspecified; E78.2 Mixed hyperlipidemia
CPT/HCPCS: 36415; 77063; 77067; 80053; 80061; 82306; 85027

== ENCOUNTER → 2021-12-19 11:32 | Outpatient (CLI) | payer MEDICARE, OTHER, SELFPAY ==
[2021-12-19 15:03] LABS: Vitamin D 25 Hydroxy (D3) 52.9 ng/mL (30.0-100.0)
== END ==
PROVIDERS: Family Provider Nurse Practitioner Family; PCP Pediatrics; Referring Provider Pediatrics; Visit Provider Pediatrics
DX: M81.0 Age-related osteoporosis without current pathological fracture (principal); E78.2 Mixed hyperlipidemia
CPT/HCPCS: 36415; 80061; 82306; 83704; 83721

== ENCOUNTER → 2022-01-02 12:46 | Outpatient (CLI) | payer MEDICARE, OTHER, SELFPAY ==
[2022-01-02 13:29] LABS: Alanine Aminotransferase 23 IU/L (<35); Albumin 4.4 g/dL (3.5-5.0); Albumin Globulin Ratio 1.2 (1.0-2.8); Alkaline Phosphatase 61 U/L (38-126); Aspartate Aminotransferase 27 IU/L (14-36); BUN Creatinine Ratio 18.1 (6-22); Bilirubin Total 0.5 mg/dL (0.2-1.3); Blood Urea Nitrogen 13 mg/dL (7-17); Calcium 9.2 mg/dL (8.4-10.2); Carbon Dioxide 31 mmol/L (22-32); Chloride 103 mmol/L (98-107); Estimated Glomerular Filt Rate > 60 mL/min (>60); Globulin 3.6 g/dL (1.7-4.1); Glucose 98 mg/dL (80-110); HEMOLYSIS < 15 (0-50); Potassium 4.2 mmol/L (3.4-5.1); Sodium 142 mmol/L (137-145)
[2022-01-04 09:29] LABS: Parathyroid Hormone Int 42 pg/mL (15-65)
== END ==
PROVIDERS: Family Provider Nurse Practitioner Family; PCP Pediatrics; Referring Provider Student in an Organized Health Care Education/Training Program; Visit Provider Student in an Organized Health Care Education/Training Program
DX: M81.8 Other osteoporosis without current pathological fracture (principal)
CPT/HCPCS: 36415; 80053; 83970

== ENCOUNTER → 2022-03-24 09:45 | Outpatient (CLI) | payer MEDICARE, OTHER, SELFPAY ==
--- NOTE | 2022-03-24 09:49 | DI.RAD.S_ITS ---
PROCEDURE: XR RIBS LT 2V INDICATIONS: left rib pain after excessive cough TECHNIQUE: 2 views of the left ribs were acquired. COMPARISON: None. FINDINGS: Surgical changes and devices: None. Bones and chest wall: No displaced fracture or dislocation identified. Lungs and pleura: The visualized lung appears clear. No pleural effusions or pneumothorax are visible. IMPRESSION: No acute radiographic abnormality. If there is high concern for occult injury, consider repeat radiography or cross-sectional imaging. Dictated by: Louie Lang M.D. on 03/24/2022 at 10:55 Approved by: Louie Lang M.D. on 03/24/2022 at 10:56
== END ==
PROVIDERS: Family Provider Nurse Practitioner Family; PCP Pediatrics; Referring Provider Nurse Practitioner Family; Visit Provider Nurse Practitioner Family
DX: R07.81 Pleurodynia (principal)
CPT/HCPCS: 71100

== ENCOUNTER → 2022-09-08 09:37 | Outpatient (CLI) | payer MEDICARE, OTHER, SELFPAY ==
--- NOTE | 2022-09-08 09:42 | DI.RAD.S_ITS ---
Bone Density Report Name: TRISH PEGUERO Age: 67 Sex: Female Ethnicity: Date of : 1955 Indication: osteopenia; monitoring treatment; Referring Provider: ANNE MARIE SEGAL Study: Bone densitometry was performed. Exam Date: September 08, 2022 Accession number: [id number] Bone Density: Region BMD T-score Z-score Classification AP Spine(L1, L2, L3) 0.792 -2.1 -0.2 Osteopenia Femoral Neck (Left) 0.624 -2.0 -0.4 Osteopenia Total Hip (Left) 0.665 -2.3 -0.9 Osteopenia Femoral Neck (Right) 0.609 -2.2 -0.5 Osteopenia Total Hip (Right) 0.710 -1.9 -0.6 Osteopenia Total Hip Mean 0.687 -2.1 -0.8 Osteopenia World Health Organization criteria for BMD impression classify patients as: Normal (T-score at or above -1.0), Osteopenia (T-score between -1.0 and -2.5), or Osteoporosis (T-score at or below -2.5). 10-year Fracture Risk: FRAX not reported because: Treated for osteoporosis Previous Exams: -- Region Exam Age BMD T-score BMD Change BMD Change Date g/cm2 vs Baseline vs Previous -- AP Spine (L1-L3) 09/08/2022 67 0.792 -2.1 -0.019 (-2.4%)# -0.019 (-2.4%)# 08/21/2020 65 0.812 -1.9 Total Hip(Left) 09/08/2022 67 0.665 -2.3 -0.013 (-1.9%)# -0.013 (-1.9%)# 08/21/2020 65 0.678 -2.2 Total Hip(Right) 09/08/2022 67 0.710 -1.9 -0.015 (-2.1%)# -0.015 (-2.1%)# 08/21/2020 65 0.725 -1.8 -- *Denotes significance at 95% confidence level, LSC for AP Spine = 0.022 g/cm2, LSC for Total Hip = 0.027 g/cm2 # Denotes dissimilar scan types or analysis methods Impression: The patient has low bone mass, based on the Left Total Hip T-score. No significant bone loss was observed. Discussion: PATIENT UNDER TREATMENT WITH NO SIGNIFICANT BMD LOSS SINCE LAST EXAM. In an untreated patient, BMD typically declines with age. A lack of decline or gain is usually a sign that treatment is efficacious and fracture risk is reduced. It is important to ask patients whether they are taking their medications and to encourage continued and appropriate compliance with their osteoporosis therapies to reduce fracture risk. It is also important to review their risk factors and encourage appropriate calcium and vitamin D intakes, exercise, fall prevention and other lifestyle measures. Follow-Up: Consider a repeat BMD and Vertebral Fracture Assessment (VFA) exam in 2 years or sooner if medically necessary, to reassess this patient's status. Reported by: TATIANA BREEN M.D. on 09/08/2022 10:09:00 AM.
== END ==
PROVIDERS: Family Provider Nurse Practitioner Family; PCP Family Medicine; Referring Provider Family Medicine; Visit Provider Family Medicine
DX: M81.0 Age-related osteoporosis without current pathological fracture; Z78.0 Asymptomatic menopausal state; Z79.83 Long term (current) use of bisphosphonates
CPT/HCPCS: 77080

== ENCOUNTER → 2022-09-09 10:22 | Outpatient (CLI) | payer MEDICARE, OTHER, SELFPAY ==
[2022-09-09 10:46] LABS: Hematocrit 39.9 % (36-46); Hemoglobin 13.3 g/dL (12.0-16.0); Mean Corpuscular HGB Conc 33.4 % (30-36); Mean Corpuscular Hemoglobin 29.8 PG (26-34); Mean Corpuscular Volume 89.1 fL (80-100); Platelet Count 205 X10^3/uL (150-400); Red Blood Cell Count 4.48 X10^6/uL (4.0-5.2); Red Cell Distribution Width 13.6 % (11.6-14.8); White Blood Cell Count 4.8 X10^3/uL (4.5-11.0)
[2022-09-09 11:00] LABS: BUN Creatinine Ratio 22.1 (6-22); Blood Urea Nitrogen 17 mg/dL (7-17); Carbon Dioxide 30 mmol/L (22-32); Chloride 102 mmol/L (98-107); Cholesterol 215 mg/dL (140-199); Estimated Glomerular Filt Rate > 60 mL/min (>60); Glucose 116 mg/dL (80-110); HDL Cholesterol 51 mg/dL (40-60); HEMOLYSIS < 15 (0-50); LDL Cholesterol Calculated 140 mg/dL (<100); Potassium 4.2 mmol/L (3.4-5.1); Sodium 139 mmol/L (137-145); Triglycerides 118 mg/dL (35-150)
== END ==
PROVIDERS: Family Provider Nurse Practitioner Family; PCP Family Medicine; Referring Provider Family Medicine; Visit Provider Family Medicine
DX: E78.2 Mixed hyperlipidemia (principal)
CPT/HCPCS: 36415; 80048; 80061; 85027

== ENCOUNTER → 2022-09-16 13:16 | Outpatient (CLI) | payer MEDICARE, OTHER, SELFPAY ==
--- NOTE | 2022-09-16 13:18 | DI.MG.S_ITS ---
BILATERAL DIGITAL SCREENING MAMMOGRAM 3D/2D WITH CAD: 09/16/2022 CLINICAL: Routine screening. Comparison is made to exams dated: 09/11/2021 mammogram, 06/04/2020 mammogram, 06/02/2019 mammogram, 05/18/2019 mammogram, and 11/17/2017 mammogram - [facility]. Both breasts are heterogeneously dense, which may obscure small masses (category c / 51-75% glandular tissue). Current study was also evaluated with a Computer Aided Detection (CAD) system. There are benign post operative findings in the left breast. No significant masses, calcifications, or other findings are seen in either breast. There has been no significant interval change. IMPRESSION: BENIGN There is no mammographic evidence of malignancy. A 1 year screening mammogram is recommended. Based on the Tyrer Cuzick model (a risk assessment model) the patient's lifetime risk is 9.7% and her 10 year risk is 5.1%. According to the ACR, ACS, and NCCN guidelines, an annual breast MRI exam along with mammogram is recommended if the patient's lifetime risk is 20% or greater. This exam was interpreted at Station ID: [id number]. NOTE: For mammograms, a report in lay terms will be sent to the patient. Approximately 15% of breast malignancies will not be visualized mammographically. In the management of a palpable breast mass, a negative mammogram must not discourage biopsy of a clinically suspicious lesion. Electronically Signed By: Louie figueroa/[place]:09/16/2022 14:51:05 letter sent: Normal Exam ACR BI-RADS Category 2: Benign Finding(s) 3342F
== END ==
PROVIDERS: Family Provider Nurse Practitioner Family; PCP Family Medicine; Referring Provider Family Medicine; Visit Provider Family Medicine
DX: Z12.31 Encounter for screening mammogram for malignant neoplasm of breast (principal)
CPT/HCPCS: 77063; 77067

== ENCOUNTER → 2022-11-14 08:51 | Outpatient (CLI) | payer MEDICARE, OTHER, SELFPAY ==
--- NOTE | 2022-11-14 08:52 | DI.RAD.S_ITS ---
PROCEDURE: XR FOOT LT MIN 3V INDICATIONS: dorsal puncture distal to great toe TECHNIQUE: 3 views of the foot were acquired. COMPARISON: None. FINDINGS: Bones: No fractures or dislocations. No suspicious bony lesions. Mild hallux valgus deformity is seen, with associated focal degenerative change of the 1st metatarsophalangeal joint. Milder degenerative changes are seen elsewhere. Plantar and Achilles calcaneal spurs are seen. Soft tissues: No radiopaque foreign bodies are seen. No tibiotalar joint effusion. Achilles tendon appears normal. IMPRESSION: No radiopaque foreign bodies are seen. No focal bony abnormality is seen. The ostiomeatal complexes are patent, yet they are constitutionally narrowed, with bilateral Majo cells. Dictated by: Jerzy Lopez M.D. on 11/14/2022 at 17:58 Approved by: Jerzy Lopez M.D. on 11/14/2022 at 18:01
== END ==
PROVIDERS: PCP Family Medicine; Referring Provider Physician Assistant; Visit Provider Physician Assistant
DX: S91.132A Puncture wound without foreign body of left great toe without damage to nail, initial encounter (principal); M20.12 Hallux valgus (acquired), left foot; M77.32 Calcaneal spur, left foot; X58.XXXA Exposure to other specified factors, initial encounter
CPT/HCPCS: 73630

== ENCOUNTER 2023-06-21 09:18 | Emergency (ER) | payer MEDICARE, OTHER, SELFPAY ==
[2023-06-21 09:27] VITALS: BP 113/70; PULSE 54; RESP 14; TEMP 36.2; O2SAT 100; BMI 23.5
--- NOTE | 2023-06-21 09:35 | DI.US.S_ITS ---
PROCEDURE: US PELVIC COMPLETE INDICATIONS: BLEEDING. TOTAL HYSTERECTOMY X10 YEARS. H/O OVARIAN CANCER TECHNIQUE: Real-time scanning was performed of the pelvic organs, with image documentation. Additional endovaginal scanning was necessary due to incomplete visualization of the adnexal and endometrial structures by transabdominal scanning. COMPARISON: [facility], , PELVIC COMPLETE, 10/10/2010, 8:06. FINDINGS: Uterus: Absent. Ovaries: Absent. Other: No pathologic free abdominal or pelvic fluid. IMPRESSION: History of hysterectomy and bilateral oophorectomy demonstrates nonvisualization of the ovaries or uterus. No focal fluid collections or other abnormality identified. We strive to produce accurate, complete, and clear reports of imaging services. To assist us in improving patient care, this report was composed using standard report templates and voice recognition software. Therefore, it may contain abnormal punctuation, insertions and/or omissions. Occasional wrong-word or sound-alike substitutions may occur. Though we review the report and make efforts to correct it, we do recommend that the report be read carefully in proper context to recognize any text inaccuracies. Dictated by: Meron Cruz M.D. on 06/21/2023 at 11:00 Approved by: Meron Cruz M.D. on 06/21/2023 at 11:00
[2023-06-21 09:50] VITALS: PULSE 57; O2SAT 98
[2023-06-21 09:51] VITALS: BP 120/52; PULSE 57; O2SAT 98
[2023-06-21 09:51] LABS: Add Manual Diff / Slide Review NO; Basophils Absolute Auto 0 /uL (0-100); Basophils Percent Auto 0.8 % (0-2); Eosinophils Absolute Auto 100 /uL (0-450); Eosinophils Percent Auto 1.8 % (2-4); Hematocrit 40.3 % (36-46); Hemoglobin 13.4 g/dL (12.0-16.0); Lymphocytes Absolute Auto 1500 /uL (1100-4500); Lymphocytes Percent Auto 30.9 % (25-40); Mean Corpuscular HGB Conc 33.4 % (30-36); Mean Corpuscular Hemoglobin 29.2 PG (26-34); Mean Corpuscular Volume 87.4 fL (80-100); Monocytes Absolute Auto 300 /uL (0-900); Monocytes Percent Auto 5.3 % (3-14); Neutrophils Absolute Auto 3000 /uL (1500-7000); Neutrophils Percent Auto 61.2 % (50-75); Platelet Count 195 X10^3/uL (150-400); Red Blood Cell Count 4.61 X10^6/uL (4.0-5.2); Red Cell Distribution Width 13.4 % (11.6-14.8); White Blood Cell Count 4.9 X10^3/uL (4.5-11.0)
[2023-06-21 09:56] LABS: Appearance Urine UA CLEAR; Bilirubin Urine UA NEGATIVE (NEGATIVE); Color Urine UA YELLOW; Glucose Urine UA NEGATIVE (Negative); Ketones Urine UA NEGATIVE (NEGATIVE); Leukocyte Esterase Urine UA TRACE (NEGATIVE); Nitrite Urine UA NEGATIVE (Negative); Occult Blood Urine UA 1+ (Negative); Protein Urine UA NEGATIVE (Negative); Urobilinogen Urine UA 0.2 E.U./dL (0.2)
[2023-06-21 09:58] LABS: Urine Volume 10mL (spun)
[2023-06-21 09:59] LABS: Prothrombin Time 11.2 SECONDS (9.4-12.5)
[2023-06-21 09:59] LABS: RBC Urine 5-10/HPF (0-5/HPF)
[2023-06-21 10:00] VITALS: BP 125/58; PULSE 54; O2SAT 98
[2023-06-21 10:00] LABS: Bacteria Urine None Seen; Culture Indicated Urine Specimen Cultured; Squamous Epithelial Cell Urine 1-5 /HPF (0-5/HPF); WBC Urine 1-5/HPF (0-5/HPF)
[2023-06-21 10:01] LABS: PTT Partial Thromboplastin Tim 45 SECONDS (25.1-36.5)
[2023-06-21 10:03] LABS: Alanine Aminotransferase 21 IU/L (<35); Albumin 4.4 g/dL (3.5-5.0); Albumin Globulin Ratio 1.2 (1.0-2.8); Alkaline Phosphatase 84 U/L (38-126); Aspartate Aminotransferase 26 IU/L (14-36); BUN Creatinine Ratio 23.1 (6-22); Bilirubin Total 0.5 mg/dL (0.2-1.3); Blood Urea Nitrogen 15 mg/dL (7-17); Calcium 9.5 mg/dL (8.4-10.2); Carbon Dioxide 28 mmol/L (22-32); Chloride 108 mmol/L (98-107); Estimated Glomerular Filt Rate > 60 mL/min (>60); Globulin 3.6 g/dL (1.7-4.1); Glucose 111 mg/dL (80-110); HEMOLYSIS < 15 (0-50); Potassium 4.1 mmol/L (3.4-5.1); Sodium 139 mmol/L (137-145)
--- NOTE | 2023-06-21 10:16 | ED_ITS ---
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 Patient states she did not require any chemotherapy or radiation. She noticed some blood which she thinks might be vaginal but states it could be coming from the urine. She states no fevers no chills, no abdominal back or flank pain. She had some spotting has only noticed it when she wipes has not noticed any on her underwear. Patient states it started last night and into today. She denies any urinary symptoms no dysuria urgency or frequency. She did think blood might be coming from the urethra but was unsure. She has not had any issues with bowel movements. She has not been having any abdominal or flank pain today. She noted occasional flank pain but nothing recently. Patient states besides , initial left oophorectomy with Dr. Dozier locally followed by hysterectomy and right oophorectomy at [facility]. Patient states she is unsure if it was complete hysterectomy for cervix is present. No tobacco, alcohol or recreational drugs. Dr. Camille Corrigan is her primary care physician. Related Data Home Medications Medication Instructions Recorded Confirmed ascorbic acid (vitamin C) 500 mg 500 mg PO BID ##0 12/10/16 06/21/23 tablet cholecalciferol (vitamin D3) 50 50 mcg PO DAILY 06/02/22 06/21/23 mcg (2,000 unit) capsule pravastatin 20 mg tablet 20 mg PO BEDTIME 06/21/23 06/21/23 Previous Rx's Medication Instructions Recorded cephalexin 500 mg capsule 500 mg PO BID 5 days #10 caps 06/21/23 Allergies Allergy/AdvReac Type Severity Reaction Status Date / Time oxycodone [From PERCOCET] AdvReac Intermediate DIZZINESS Verified 06/21/23 09:31 I DON'T WANT TO TAKE THAT MEDICATION rosuvastatin AdvReac Mild myalgia Verified 06/21/23 09:31 simvastatin AdvReac myalgia Verified 06/21/23 09:31 Review of Systems Review of Systems ROS Unobtainable: All systems reviewed & are unremarkable except as noted in HPI and below Patient History Medical History Lumbar pain GERD (gastroesophageal reflux disease) Seasonal allergies Sacroiliac joint pain Myalgia Varicose veins of both lower extremities Osteopenia Latent tuberculosis Colon polyps (01/11/12) Granulosa cell tumor of left ovary (2010) Herpes Mixed hyperlipidemia (07/28/10) Surgical History S/P total abdominal hysterectomy and bilateral salpingo-oophorectomy (2010) Status post colonoscopy (01/11/12) Status post breast biopsy (2004) Status post delivery (1985) Family History Father Emphysema of lung Mother Kidney failure Arthritis alcohol intake frequency: 0-2 drinks per day Substance Use Type: does not use Exam Narrative Exam Narrative: GENERAL: Alert and oriented x three, female in no acute distress. HEENT: Head normocephalic, atraumatic, EOMI, pupils reactive, face symmetric, moist mucous membranes NECK: Supple, full range of motion CARDIOVASCULAR: Regular rate and rhythm without murmurs, rubs or gallops. RESPIRATORY: Breath sounds equal bilaterally, no wheezes rales or rhonchi. ABDOMEN: Soft, nontender. Normoactive bowel sounds all 4 quadrants. No guarding or rebound, rigidity, no mass : No CVA tenderness. Female: external vaginal exam is normal, no vaginal bleeding, scant clear discharge, patient had 3 small erythematous areas almost look like petechiae but spread over a large area on the soft tissue of the posterior vaginal canal, not present on the cervix with no bleeding, no cervical motion tenderness, patient have cervix present, normal speculum exam, no adnexal tenderness/mass. Patient's urethral also appears normal. No pelvic tenderness on exam. No mass. EXTREMITIES: Normal range of motion, no clubbing or edema. Neurovascularly intact NEUROLOGICAL: Cranial nerves II through XII grossly intact. Moving all extremities SKIN: Warm, dry, no petechiae, no rashes or lesions. Initial Vital Signs Initial Vital Signs: Vital Signs Temperature 97.1 F L 06/21/23 09:27 Pulse Rate 54 L 06/21/23 09:27 Respiratory Rate 14 06/21/23 09:27 Blood Pressure 113/70 06/21/23 09:27 Pulse Oximetry 100 06/21/23 09:27 Oxygen Delivery Method Room Air 06/21/23 09:27 Course Orders Ordered: ED Orders 06/21/23 11:30 Genital Culture Stat Wet Prep Tric BV Gladis Stat Vital Signs Vital signs: Vital Signs - 8 hr 06/21/23 09:27 Temperature 97.1 F L Pulse Rate 54 L Respiratory Rate 14 Blood Pressure 113/70 Pulse Oximetry 100 Oxygen Delivery Method Room Air MDM - Female Genitourinary Lab Data 06/21/23 09:45 06/21/23 09:45 Labs: Lab Results 06/21/23 06/21/23 Range/Units 09:44 09:45 WBC 4.9 (4.5-11.0) X10^3/uL RBC 4.61 (4.0-5.2) X10^6/uL Hgb 13.4 (12.0-16.0) g/dL Hct 40.3 (36-46) % MCV 87.4 (80-100) fL MCH 29.2 (26-34) PG MCHC 33.4 (30-36) % RDW 13.4 (11.6-14.8) % Plt Count 195 (150-400) X10^3/uL Neut % (Auto) 61.2 (50-75) % Lymph % (Auto) 30.9 (25-40) % [place] % (Auto) 5.3 (3-14) % Eos % (Auto) 1.8 L (2-4) % Baso % (Auto) 0.8 (0-2) % Neut # (Auto) 3000 (8824-6794) /uL Lymph # (Auto) 1500 (4786-1682) /uL [place] # (Auto) 300 (0-900) /uL Eos # (Auto) 100 (0-450) /uL Baso # (Auto) 0 (0-100) /uL PT 11.2 (9.4-12.5) SECONDS INR 1.0 (0.9-1.3) APTT 45 H (25.1-36.5) SECONDS Sodium 139 (137-145) mmol/L Potassium 4.1 (3.4-5.1) mmol/L Chloride 108 H (98-107) mmol/L Carbon Dioxide 28 (22-32) mmol/L BUN 15 (7-17) mg/dL Creatinine 0.65 (0.52-1.04) mg/dL Estimated GFR > 60 (>60) mL/min BUN/Creatinine Ratio 23.1 H (6-22) Glucose 111 H (80-110) mg/dL Calcium 9.5 (8.4-10.2) mg/dL Total Bilirubin 0.5 (0.2-1.3) mg/dL AST 26 (14-36) IU/L ALT 21 (<35) IU/L Alkaline Phosphatase 84 (38-126) U/L Total Protein 8.0 (6.3-8.2) g/dL Albumin 4.4 (3.5-5.0) g/dL Globulin 3.6 (1.7-4.1) g/dL Albumin/Globulin Ratio 1.2 (1.0-2.8) Urine Color Yellow Urine Appearance Clear Urine pH 6.0 (4.5-8.0) Ur Specific [place] 1.010 (1.000-1.035) Urine Protein Negative (Negative) Urine Glucose (UA) Negative (Negative) g/dL Urine Ketones Negative (NEGATIVE) Urine Occult Blood 1+ H (Negative) Urine Nitrate Negative (Negative) Urine Bilirubin Negative (NEGATIVE) Urine Urobilinogen 0.2 (0.2) E.U./dL Ur Leukocyte Esterase Trace H (NEGATIVE) Urine RBC 5-10/hpf H (0-5/HPF) Urine WBC 1-5/hpf (0-5/HPF) Ur Squamous Epith Cells 1-5 /hpf (0-5/HPF) Urine Bacteria None seen (None) Ur Culture Indicated? 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 PROCEDURE: US PELVIC COMPLETE INDICATIONS: BLEEDING. TOTAL HYSTERECTOMY X10 YEARS. H/O OVARIAN CANCER TECHNIQUE: Real-time scanning was performed of the pelvic organs, with image documentation. Additional endovaginal scanning was necessary due to incomplete visualization of the adnexal and endometrial structures by transabdominal scanning. COMPARISON: [facility], , PELVIC COMPLETE, 10/10/2010, 8:06. FINDINGS: Uterus: Absent. Ovaries: Absent. Other: No pathologic free abdominal or pelvic fluid. IMPRESSION: History of hysterectomy and bilateral oophorectomy demonstrates nonvisualization of the ovaries or uterus. No focal fluid collections or other abnormality identified. We strive to produce accurate, complete, and clear reports of imaging services. To assist us in improving patient care, this report was composed using standard report templates and voice recognition software. Therefore, it may contain abnormal punctuation, insertions and/or omissions. Occasional wrong-word or sound-alike substitutions may occur. Though we review the report and make efforts to correct it, we do recommend that the report be read carefully in proper context to recognize any text inaccuracies. Dictated by: Meron Cruz M.D. on 06/21/2023 at 11:00 Approved by: Meron Cruz M.D. on 06/21/2023 at 11:[address] [facility] Narrative Medical decision making narrative: 67-year-old female who presents with complaint of concern for vaginal bleeding versus hematuria. Patient does have a history of prior hysterectomy for granulosa cell tumor proximally 10 years ago. Labs are overall appropriate platelets are 195 white count 4.9 hemoglobin is 13.4. Coags show a PTT of 45 otherwise negative, creatinine 0.65 electrolytes are overall appropriate glucose is 111 LFTs are negative. UA shows 1+ blood, negative nitrates trace leukocyte esterase 5-10 RBCs 1-5 WBCs 1 5 squamous no bacteria. Specimen was sent for culture. Pelvic ultrasound shows no masses or changes, no fluid collection. Pelvic exam not show clear source there is some scant discharge but appears physiologic. Patient states you have no concerns for STIs, has been central activity, no recent trauma or injuries. There does not appear to be clear source there has no clear bleeding from the cervical os which is present. Suspect patient may have hematuria did visualize the urethra did not have any changes but did have blood in urine. We will treat for UTI but discussed with patient needs to have rechecked to make sure urinalysis is negative and if she has continued bleeding or bleeding on her underwear this is likely vaginal source and needs further workup with field reimbursement manager. She has not appointment this week with her primary care Dr. Corrigan. Discharge Plan Departure Patient Disposition: Home Clinical Impression: Hematuria Activity Restrictions/Additional Instructions: Your workup today seems most consistent with hematuria or blood in her urine. Follow up with your physician this week at your scheduled appointment on Wednesday. Take antibiotics until completed they will likely wish to check your urine afterwards to make sure bleeding has resolved. [facility] [place] I did not find a source of bleeding from the cervix but if you have any persistent vaginal bleeding or spotting on your underwear you did not need additional follow up with field reimbursement manager. Please return for new or worsening symptoms, new abdominal back or flank pain, fevers, vomiting, increasing or large amounts of bleeding or other new or concerning changes. Prescriptions: New cephalexin 500 mg capsule 500 mg PO BID 5 Days Qty: 10 0RF No Action ascorbic acid (vitamin C) 500 MG tablet 500 mg PO BID Qty: 0 cholecalciferol (vitamin D3) 50 mcg (2,000 unit) capsule 50 mcg PO DAILY pravastatin 20 mg tablet 20 mg PO BEDTIME Referrals: Camille Corrigan DO [Primary Care Provider] - Stand Alone Forms: Patient Portal/API
== END 2023-06-21 11:54 | disposition home or self-care (01) ==
PROVIDERS: Emergency Provider Emergency Medicine; PCP Family Medicine
DX: R31.9 Hematuria, unspecified (principal); Z85.43 Personal history of malignant neoplasm of ovary; Z90.710 Acquired absence of both cervix and uterus
CPT/HCPCS: 36415; 76830; 76856; 80053; 81001; 85025; 85610; 85730; 87070; 87086; 87205; 87210; 99284

== ENCOUNTER → 2023-08-12 11:22 | Outpatient (CLI) | payer MEDICARE, OTHER, SELFPAY ==
--- NOTE | 2023-08-12 11:24 | DI.RAD.S_ITS ---
PROCEDURE: XR HIP W PEL IF DONE LT 2V INDICATIONS: LEFT SI AND GROIN PAIN TECHNIQUE: AP pelvis with lateral view(s) of the left hip(s). COMPARISON: [facility], XR HIP W PEL IF DONE LT 2V, 06/19/2020, 10:00. , , [id number] W PEL IF PERFORMED, 12/10/2016, 9:43. FINDINGS: Bones: No fractures or dislocations. Minimal osteoarthritic changes with mild marginal spurring. Pelvic ring appears intact. No suspicious bony lesions. Soft tissues: The visualized bowel gas pattern is normal. No suspicious soft tissue calcifications. IMPRESSION: No acute osseous abnormalities. 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 Dictated by: Michael Zambrano M.D. on 08/12/2023 at 14:29 Approved by: Michael Zambrano M.D. on 08/12/2023 at 14:33
== END ==
PROVIDERS: PCP Family Medicine; Referring Provider Family Medicine; Visit Provider Family Medicine
DX: M53.3 Sacrococcygeal disorders, not elsewhere classified (principal); M25.552 Pain in left hip
CPT/HCPCS: 73502

== ENCOUNTER → 2023-09-21 11:33 | Outpatient (CLI) | payer MEDICARE, OTHER, SELFPAY ==
[2023-09-21 14:56] LABS: Hemoglobin A1C% w Est Avg Glu 5.9 % (4.0-6.0)
[2023-09-21 15:08] LABS: Cholesterol 228 mg/dL (140-199); HDL Cholesterol 56 mg/dL (40-60); LDL Cholesterol Calculated 135 mg/dL (<100); Triglycerides 184 mg/dL (35-150)
[2023-09-21 15:11] LABS: High Sensitivity CRP - Cardiac < 0.3 mg/L (1.0-3.0)
== END ==
PROVIDERS: Family Provider Family Medicine; PCP Family Medicine; Referring Provider Family Medicine; Visit Provider Family Medicine
DX: E78.2 Mixed hyperlipidemia (principal); R73.9 Hyperglycemia, unspecified; Z13.1 Encounter for screening for diabetes mellitus
CPT/HCPCS: 36415; 80061; 83036; 86140

== ENCOUNTER → 2023-10-12 13:12 | Outpatient (CLI) | payer MEDICARE, OTHER, SELFPAY ==
--- NOTE | 2023-10-12 13:13 | DI.MG.S_ITS ---
BILATERAL DIGITAL SCREENING MAMMOGRAM 3D/2D WITH CAD: 10/12/2023 CLINICAL: Routine screening. Comparison is made to exams dated: 09/16/2022 mammogram, 09/11/2021 mammogram, and 06/04/2020 mammogram - [facility]. Both breasts are heterogeneously dense, which may obscure small masses (category c / 51-75% glandular tissue). Current study was also evaluated with a Computer Aided Detection (CAD) system. There are benign post operative findings in the left breast. No significant masses, calcifications, or other findings are seen in either breast. There has been no significant interval change. IMPRESSION: BENIGN There is no mammographic evidence of malignancy. A 1 year screening mammogram is recommended. Based on the Tyrer Cuzick model (a risk assessment model) the patient's lifetime risk is 9.2% and her 10 year risk is 5.1%. According to the ACR, ACS, and NCCN guidelines, an annual breast MRI exam along with mammogram is recommended if the patient's lifetime risk is 20% or greater. This exam was interpreted at Station ID: [id number]. NOTE: For mammograms, a report in lay terms will be sent to the patient. Approximately 15% of breast malignancies will not be visualized mammographically. In the management of a palpable breast mass, a negative mammogram must not discourage biopsy of a clinically suspicious lesion. Electronically Signed By: Jenny redi/[place]:10/12/2023 17:52:31 letter sent: Normal Exam ACR BI-RADS Category 2: Benign Finding(s) [id number]
== END ==
PROVIDERS: Family Provider Family Medicine; PCP Family Medicine; Referring Provider Family Medicine; Visit Provider Family Medicine
DX: Z12.31 Encounter for screening mammogram for malignant neoplasm of breast (principal); R92.333 Mammographic heterogeneous density, bilateral breasts
CPT/HCPCS: 77063; 77067

== ENCOUNTER 2023-10-14 14:30 | Outpatient (RCR) | payer MEDICARE, OTHER, SELFPAY ==
--- NOTE | 2023-09-23 15:50 | PT.OIE ---
Current Diagnoses Pain in left hip (09/23/23) Sacrococcygeal disorders, not elsewhere classified (09/23/23) Low back pain, unspecified (09/23/23) Other lack of coordination (09/23/23) Weakness (09/23/23) Past Medical History (Last Updated 06/23/23 @ 15:55 by Camille Corrigan DO) Colon polyps (01/11/12) Facial skin lesion GERD (gastroesophageal reflux disease) Granulosa cell tumor of left ovary (2010) Herpes Latent tuberculosis Lumbar pain Mixed hyperlipidemia (07/28/10) Myalgia Osteopenia Sacroiliac joint pain Seasonal allergies TMJ (sprain of temporomandibular joint) Varicose veins of both lower extremities Past Surgical History (Last Reviewed 06/21/23 @ 10:30 by Neetu Breaux DO) S/P total abdominal hysterectomy and bilateral salpingo-oophorectomy (2010) Status post breast biopsy (2004) Status post delivery (1985) Status post colonoscopy (01/11/12) Visit Care Team Role Provider Type Camille Corrigan DO Attending Provider Physician Family Provider Primary Care Provider Referring Provider Specialty: Medical Address: [address] [place] [address], [address], [place], [employer] Email: [email or web address] Physical Therapy Initial Evaluation PT-OP-A Visit Information Start: 09/23/23 11:17 Freq: Status: Active Protocol: Document 09/23/23 11:20 NM (Rec: 09/23/23 12:24 NM [id number]) Out-Patient Physical Therapy Visit Information Visit Information Visit Type Initial Evaluation Visit Note KX after 19 visits Visit Start Time 11:20 Visit Stop Time 12:00 Visit Number 1 Evaluation Information Evaluation Date 09/23/23 Precautions Precautions osteopenia PT-OP-B Current Condition Start: 09/23/23 11:17 Freq: Status: Active Protocol: Document 09/23/23 11:20 NM (Rec: 09/23/23 12:24 NM [id number]) Current Condition History of Current Condition Onset Date several years ago Current Complaints pain, stiffness, limited mobility History of Current Condition Pt reports L hip pain ( gestures to L SIJ). She has had radiographs, which indicate arthritis. She has seen Dr. Corrigan, who referred pt for strengthening before more intensive treatment. Currently not interested in a hip replacement. She reports that her hip began bothering her many years ago. No known KATINA. Pain is worse in bed, better with position changes or if static. She reports getting out of bed is slow and increases pain. She also has pain with extended sitting (>5 hours [address] driving). Pt also has B knee pain. She also has back pain periodically, but mainly concerned with the L hip. She reports that she does not like exercise, but has to stretch before getting out of bed. Pt has period tingling down posterior L leg, beginning recently; to thigh only. She has had previous PT for hip/back, same condition but she did not finish her PT program. No other injuries or significant PMH. Prior Treatments and Tests July 2023 radiograph: mild osteoarthritic changes of B hips Nov 2020 radiograph of lumbar spine: multilevel spondylosis Current Functional Impairments (Reported) Functional Limitations- ADL's no limitations with dressing pain with turning, household activities Functional Limitations- Mobility/Gait reports no pain if standing up (limit 5 hours)- takes break, puts feet up getting in and out of cars sitting on commode (hurts to sit and get up - low commode) ambulation- no limitations but mild; does walk at home Functional Limitations- Work/School rearranging her home Functional Limitations- Recreation/ takes care of [employer] frequently in [place], has month long cruise planned PT-OP-C Subjective Start: 09/23/23 11:17 Freq: Status: Active Protocol: Document 09/23/23 11:20 NM (Rec: 09/23/23 12:24 NM [id number]) OP-PT Subjective Patient Comments Patient Comments She consents to participate in evaluation Patient Questionnaires Lower Extremity Functional Scale LEFS Score 67/80 Oswestry Low Back Index Oswestry Score 7/50 OP-PT Pain Assessment Location L hip Pain Location Details posterior hip near SIJ Intensity 2 Scale Used Numeric (0 - 10) Description Aching Description- Other heaviness; worse 6/10 Frequency Frequent Radiating Location none Variations/Patterns tingling along posterior thigh Pain Aggravating Factors Walking,Stair Climbing,Bending ,Lifting Pain Alleviating Factors Heat,Massage,Elevation,Rest PT-OP-D Balance Start: 09/23/23 11:17 Freq: Status: Active Protocol: Document 09/23/23 11:20 NM (Rec: 09/23/23 12:24 NM [id number]) Balance Tests Single Limb Standing Single Limb- Right 5 sec Single Limb- Left 5 sec; no increased pain but pt reports usually more painful PT-OP-E Functional Tests Start: 09/23/23 11:17 Freq: Status: Active Protocol: Document 09/23/23 11:20 NM (Rec: 09/23/23 12:24 NM [id number]) Functional Tests 30 Second Sit to Stand Test Score 9 Comments knee pain, mild L hip pain; worse w/ sit Five Times Sit to Stand Test Score 15 sec Comments knees over toes PT-OP-F Manual Assessment Start: 09/23/23 11:17 Freq: Status: Active Protocol: Document 09/23/23 11:20 NM (Rec: 09/23/23 12:24 NM [id number]) Manual Assessments Soft Tissue Assessment Soft Tissue Mobility Assessment Increased hamstring length bilaterally, but R more restricted than L Joint Mobility Assessment Joint Mobility Assessment Limited hip AROM bilaterally, mild limitations in PROM B hips. Hypomobility of lumbar spine and SIJ PT-OP-G Mobility & Gait Start: 09/23/23 11:17 Freq: Status: Active Protocol: Document 09/23/23 11:20 NM (Rec: 09/23/23 16:14 NM [id number]) OP Gait Assessment Gait Gait Assistance Required: Independent Distance (Feet) 200 Gait Deviations General Gait Pattern Antalgic,Lateral Trunk Lean PT-OP-J Posture/Palpation/Skin Start: 09/23/23 11:17 Freq: Status: Active Protocol: Document 09/23/23 11:20 NM (Rec: 09/23/23 12:24 NM [id number]) Posture Evaluation Position Standing Head/C-Spine Posture Forward Head L-Spine Posture Flattened,Decreased Lordosis Shoulder Posture (L) Rounded,(R) Rounded Pelvis Posture Posterior Tilted Hip Posture (L) Externally Rotated,(R) Externally Rotated Knee Posture (L) Genu Valgus,(R) Genu Valgus Patellar Posture (L) Superior,(R) Superior Palpation Assessment Location hips Palpation Details No tenderness in groin Mild hip flexor and quad tenderness along LLE lumbar spine Palpation Details Tenderness along L SIJ, none with R SIJ No tenderness with springing of lumbar spinous processes along midline or transverse processes laterally. Mild atrophy of B paraspinals, no glute/piriformis tenderness PT-OP-K Range of Motion Start: 09/23/23 11:17 Freq: Status: Active Protocol: Document 09/23/23 11:20 NM (Rec: 09/23/23 12:24 NM [id number]) Lumbar Spine Range of Motion Lumbar Spine Active Percentage Flexion 90 Extension 100 Rotation Left 100 Rotation Right 100 Lateral Flexion Left 100 Lateral Flexion Right 100 ROM Limitations Soft Tissue Tightness Comments mild pain SIJ pain with flex, R rot, ext Hip Goniometric Range of Motion Hip Right Flexion w/Knee Flexed 105 Abduction 20 Internal Rotation 25 External Rotation 35 Left Flexion w/Knee Flexed 105 Abduction 15 Internal Rotation 28 External Rotation 30 Comments stretch felt w/ hip flex Knee Goniometric Range of Motion Knee Right Flexion Active (degrees) 130 Extension Active (degrees) 0 Comments HS length 165 deg Left Flexion Active (degrees) 135 Extension Active (degrees) 0 Comments HS length 170 deg PT-OP-L Special Tests Start: 09/23/23 11:17 Freq: Status: Active Protocol: Document 09/23/23 11:20 NM (Rec: 09/23/23 12:24 NM [id number]) Special Tests Lumbar Spine Special Tests Laslett cluster for SIJ Test Results - Straight Leg Raise Test Results - Distraction Test Results + Slump Test Results - Thompson/quadrant Test Results + Comments L side with R test PT-OP-M Strength Start: 09/23/23 11:17 Freq: Status: Active Protocol: Document 09/23/23 11:20 NM (Rec: 09/23/23 12:24 NM [id number]) Trunk Strength Trunk Manual Muscle Testing Flexion 4 Good Extension 4 Good Rotation Left 4 Good Rotation Right 4 Good Lateral Flexion Left 4 Good Lateral Flexion Right 4 Good Comments Mild pain with resisted R rotation Hip Strength Hip Manual Muscle Testing Right Flexion (L2) 4 Good Extension (S1) 4 Good Abduction 4 Good Adduction 4 Good External Rotation 4 Good Internal Rotation 4 Good Left Flexion (L2) 4 Good Extension (S1) 4- Good- Abduction 4- Good- Adduction 4 Good External Rotation 4 Good Internal Rotation 4- Good- Comments Mild pain with resisted IR Knee Strength Knee Manual Muscle Testing Right Flexion (S2) 4- Good- Extension (L3) 4- Good- Comments crepitus and pain with resisted testing Left Flexion (S2) 4- Good- Extension (L3) 4- Good- Comments crepitus and pain with resisted testing PT-OP-Q Treatments Start: 09/23/23 11:17 Freq: Status: Active Protocol: Document 09/23/23 11:20 NM (Rec: 09/23/23 12:24 NM [id number]) Therapeutic Exercises Supine Exercises bridge Supine Exercise Name 1. AROM, 2. hip ADD, 3. hip ABD Side bilateral Reps/Minutes 10 ea Comments reports mild SIJ pain so did not issue HEP Sidelying Exercises clams Side left Reps/Minutes 10 Comments unable to report if painful vs muscle activation Self-Care/Home Management Treatment Education Patient Education Joint Protection,Pain Management Other Education Educated on sleeping position to reduce stress on low back and SIJ. Education also on importance of strengthening following stretching to maintain muscle length PT-OP-T Assessment and Plan Start: 09/23/23 11:17 Freq: Status: Active Protocol: Document 09/23/23 11:20 NM (Rec: 09/23/23 12:24 NM [id number]) Physical Therapy Assessment Rehab Potential Rehabilitation Potential Good Evaluation Complexity Number of Personal Factors/Comorbidities 1-2 Number of Body Systems Impaired 1-2 Clinical Presentation at Evaluation Stable Impairments Impairments Activity Tolerance,Balance, Functional Activities, Functional Mobility,Gait, Integument,Pain,Posture,ROM, Sensation,Soft Tissue Mobility ,Strength Other Concerns Barriers to Rehabilitation Pt will be going on vacation for 1 month. She also reports from previous episode of care with PT that she was not very compliant with attending PT during or continuing with HEP afterward; did not finish last episode of care. Goals Four Impairment pain with car transfers Retirement Goal (LTG) Pt will report that she has no hip pain with car transfers at least 75% of the time in order to demonstrate improved symptom management and QOL LTG Duration 12 weeks Three Impairment no HEP Short Term Goal (STG) Pt will report compliance with HEP at least 3x/wk in order to maximize progression with PT and promote independence when on her vacation STG Duration 4 weeks Retirement Goal (LTG) Pt will report compliance with HEP at least 3x/wk in order to maintain progress from PT and promote independence upon discharge to maintenance program LTG Duration 12 weeks Two Impairment L hip and knee strength: -4/5 MMT Short Term Goal (STG) Pt will improve L hip and knee strength globally to at least 4/5 MMT in order to demonstrate increased strength for standing, ambulating, and playing with her grandkids STG Duration 6 weeks Meat Stuffer Goal (LTG) Pt will improve L hip and knee strength globally to at least 4+/5 MMT in order to demonstrate increased strength for standing, ambulating, and playing with her grandkids LTG Duration 12 weeks One Impairment STS- 15 sec 5x STS, pain with sitting motion Short Term Goal (STG) Pt will be able to perform at least 5 out of 10 reps of sit to stand from standard chair with good form and without increase in baseline pain symptoms in order to demonstrate improved transfers and BLE strength STG Duration 6 weeks Meat Stuffer Goal (LTG) Pt will be able to perform 5x STS in 12 seconds or better ( age-related norm) in order to demonstrate improved BLE strength and ability to perform transfers LTG Duration 12 weeks Assessment Summary Assessment Pt is a 68 y.o. female presenting to clinic with chronic L sided posterior hip and low back pain. She has occasional radiation into L posterior thigh, not following a dermatome. Pt has mild limitations in global trunk ROM and B hip ROM. However, she is more limited in her trunk/core and hip strength bilaterally. Symptoms are reproduced with sit to stand, single leg stance, palpation, hip AROM, resisted muscle testing, and 3D compression testing. She does not have any positive tests in Laslett cluster, indicating true SIJ involvement. However, pt's symptoms are reproduced with palpation at SIJ, no reproduction with SIJ shearing . She has impairments in ability to perform transfers, strength, ROM, sleeping, activity tolerance, standing, sitting, ambulating, and ability to participate in ADLs /recreational activities. PT educated pt on exam findings and plan of care. Pt would benefit from skilled PT for global strengthening and mobility in order to improve symptom management and activity tolerance. Physical Therapy Plan Frequency and Duration Frequency of Treatment 2x/Week Duration of treatment (weeks) 12 Plan of Care Start Date 09/23/23 Plan of Care End Date 12/17/23 Therapeutic Interventions Therapeutic Interventions Balance Training,Gait Training ,Home Exercise Program,Joint Mobilizations,Manual Therapy, Neuromuscular Re-education, Orthotic/Prosthetic Management ,Patient/Caregiver Education, Self-Care/Home Management, Sensory Integration,Soft Tissue Mobilization,Taping, Therapeutic Activities, Therapeutic Exercises Modalities Cold Pack/Ice Massage,Electric Stimulation,Hot Packs, Ultrasound Other Therapeutic Interventions pelvic realignment Grade III mobilizations max Next Visit Focus/Plan Next Note Type Treatment Note Next Visit Plan STM, SIJ mobilization, hip mobilization dmitriy IR stretching: hip flexors, quad, calf core bracing (trial flexion biased), retry clams (seated vs sidelying), reverse clams ( seated vs sidelying), segmental bridge with ADD or ABD, rockbacks (add IR/ER bias , then strengthening), side steps, hip flexion resisted osteopenia
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
--- NOTE | 2023-09-30 12:13 | PT.OTN ---
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 She has had radiographs, which indicate arthritis. She has seen Dr. Corrigan, who referred pt for strengthening before more intensive treatment. Currently not interested in a hip replacement. She reports that her hip began bothering her many years ago. No known KATINA. Pain is worse in bed, better with position changes or if static. She reports getting out of bed is slow and increases pain. She also has pain with extended sitting (>5 hours or driving). Pt also has B knee pain. She also has back pain periodically, but mainly concerned with the L hip. She reports that she does not like exercise, but has to stretch before getting out of bed. Pt has period tingling down posterior L leg, beginning recently; to thigh only. She has had previous PT for hip/back, same condition but she did not finish her PT program. No other injuries or significant PMH. Prior Treatments and Tests July 2023 radiograph: mild osteoarthritic changes of B hips Nov 2020 radiograph of lumbar spine: multilevel spondylosis Current Functional Impairments (Reported) Functional Limitations- ADL's no limitations with dressing pain with turning, household activities Functional Limitations- Mobility/Gait reports no pain if standing up (limit 5 hours)- takes break, puts feet up getting in and out of cars sitting on commode (hurts to sit and get up - low commode) ambulation- no limitations but mild; does walk at home Functional Limitations- Work/School rearranging her home Functional Limitations- Recreation/ takes care of grandkids Hobbies frequently in [place], has month long cruise planned PT-OP-C Subjective Start: 09/23/23 11:17 Freq: Status: Active Protocol: Document 09/30/23 10:13 AB (Rec: 09/30/23 12:12 AB [id number]) OP-PT Subjective Patient Comments Patient Comments Patient reports she is better, pain is not as bad. Patient reports the pain is still there, but it is not as bad to reposition in bed. Patient reports the knees still hurt when getting in and out of the car. Patient perform stand to sit with increased velocity start of session. PT-OP-D Balance Start: 09/23/23 11:17 Freq: Status: Active Protocol: Document 09/23/23 11:20 NM (Rec: 09/23/23 12:24 NM [id number]) Balance Tests Single Limb Standing Single Limb- Right 5 sec Single Limb- Left 5 sec; no increased pain but pt reports usually more painful PT-OP-E Functional Tests Start: 09/23/23 11:17 Freq: Status: Active Protocol: Document 09/23/23 11:20 NM (Rec: 09/23/23 12:24 NM [id number]) Functional Tests 30 Second Sit to Stand Test Score 9 Comments knee pain, mild L hip pain; worse w/ sit Five Times Sit to Stand Test Score 15 sec Comments knees over toes PT-OP-F Manual Assessment Start: 09/23/23 11:17 Freq: Status: Active Protocol: Document 09/23/23 11:20 NM (Rec: 09/23/23 12:24 NM [id number]) Manual Assessments Soft Tissue Assessment Soft Tissue Mobility Assessment Increased hamstring length bilaterally, but R more restricted than L Joint Mobility Assessment Joint Mobility Assessment Limited hip AROM bilaterally, mild limitations in PROM B hips. Hypomobility of lumbar spine and SIJ PT-OP-G Mobility & Gait Start: 09/23/23 11:17 Freq: Status: Active Protocol: Document 09/23/23 11:20 NM (Rec: 09/23/23 16:14 NM [id number]) OP Gait Assessment Gait Gait Assistance Required: Independent Distance (Feet) 200 Gait Deviations General Gait Pattern Antalgic,Lateral Trunk Lean PT-OP-J Posture/Palpation/Skin Start: 09/23/23 11:17 Freq: Status: Active Protocol: Document 09/23/23 11:20 NM (Rec: 09/23/23 12:24 NM [id number]) Posture Evaluation Position Standing Head/C-Spine Posture Forward Head L-Spine Posture Flattened,Decreased Lordosis Shoulder Posture (L) Rounded,(R) Rounded Pelvis Posture Posterior Tilted Hip Posture (L) Externally Rotated,(R) Externally Rotated Knee Posture (L) Genu Valgus,(R) Genu Valgus Patellar Posture (L) Superior,(R) Superior Palpation Assessment Location hips Palpation Details No tenderness in groin Mild hip flexor and quad tenderness along LLE lumbar spine Palpation Details Tenderness along L SIJ, none with R SIJ No tenderness with springing of lumbar spinous processes along midline or transverse processes laterally. Mild atrophy of B paraspinals, no glute/piriformis tenderness PT-OP-K Range of Motion Start: 09/23/23 11:17 Freq: Status: Active Protocol: Document 09/23/23 11:20 NM (Rec: 09/23/23 12:24 NM [id number]) Lumbar Spine Range of Motion Lumbar Spine Active Percentage Flexion 90 Extension 100 Rotation Left 100 Rotation Right 100 Lateral Flexion Left 100 Lateral Flexion Right 100 ROM Limitations Soft Tissue Tightness Comments mild pain SIJ pain with flex, R rot, ext Hip Goniometric Range of Motion Hip Right Flexion w/Knee Flexed 105 Abduction 20 Internal Rotation 25 External Rotation 35 Left Flexion w/Knee Flexed 105 Abduction 15 Internal Rotation 28 External Rotation 30 Comments stretch felt w/ hip flex Knee Goniometric Range of Motion Knee Right Flexion Active (degrees) 130 Extension Active (degrees) 0 Comments HS length 165 deg Left Flexion Active (degrees) 135 Extension Active (degrees) 0 Comments HS length 170 deg PT-OP-L Special Tests Start: 09/23/23 11:17 Freq: Status: Active Protocol: Document 09/23/23 11:20 NM (Rec: 09/23/23 12:24 NM [id number]) Special Tests Lumbar Spine Special Tests Laslett cluster for SIJ Test Results - Straight Leg Raise Test Results - Distraction Test Results + Slump Test Results - Thompson/quadrant Test Results + Comments L side with R test PT-OP-M Strength Start: 09/23/23 11:17 Freq: Status: Active Protocol: Document 09/23/23 11:20 NM (Rec: 09/23/23 12:24 NM [id number]) Trunk Strength Trunk Manual Muscle Testing Flexion 4 Good Extension 4 Good Rotation Left 4 Good Rotation Right 4 Good Lateral Flexion Left 4 Good Lateral Flexion Right 4 Good Comments Mild pain with resisted R rotation Hip Strength Hip Manual Muscle Testing Right Flexion (L2) 4 Good Extension (S1) 4 Good Abduction 4 Good Adduction 4 Good External Rotation 4 Good Internal Rotation 4 Good Left Flexion (L2) 4 Good Extension (S1) 4- Good- Abduction 4- Good- Adduction 4 Good External Rotation 4 Good Internal Rotation 4- Good- Comments Mild pain with resisted IR Knee Strength Knee Manual Muscle Testing Right Flexion (S2) 4- Good- Extension (L3) 4- Good- Comments crepitus and pain with resisted testing Left Flexion (S2) 4- Good- Extension (L3) 4- Good- Comments crepitus and pain with resisted testing PT-OP-Q Treatments Start: 09/23/23 11:17 Freq: Status: Active Protocol: Document 09/30/23 10:13 AB (Rec: 09/30/23 12:12 AB [id number]) Therapeutic Exercises Supine Exercises TrA activation Supine Exercise Name BKFO Reps/Minutes X10 Comments monitored for pain, verbal cues bridge Supine Exercise Name HEP segmental bridge with hip ABD Side bilateral Resistance level 1 tb at thighs Reps/Minutes X1 w/o band X 10 with band Comments cued for segmental bridge with ppt, TrA, and glute squeeze; pain free today Sidelying Exercises clams Side bilateral Reps/Minutes X10 Comments monitored for pain Sitting Exercises seated hip abd with band Sitting Exercise Name HEP Side bilateral Resistance teal band Reps/Minutes 2X10 slowly to 5 sec hold and X 1 one minute hold Comments verbal cues, monitored for pain Standing Exercises side stepping with band Side bilateral Resistance level 2 teal band Reps/Minutes 8 feet left and right X 2 Comments hand held assist, VC to avoid toeing out Therapeutic Activity Therapeutic Activity sit to and from stand Reps/Minutes X3 Comments Verbal and visual cues, and pt ed use of self tactile cues for hip hinge, verbal cues sit down slowly. Manual Therapy Treatment Consent Patient gave verbal consent for manual Yes treatment Soft Tissue Mobilization B lumbar paraspinals/glutes/HS Body Location paraspinals, QL, glutes/ pirformis, HS Mobilization Type Cross-Friction,Rolling, Sustained Pressure Body Position Sidelying Comments Prior to MET Manual Techniques MET Type R AI L PI Body Position Hooklying Reps/Duration 6x6 hold Comments R hip ext, L hip flex with dowel Self-Care/Home Management Treatment Education Patient Education Home Exercise Program Other Education HEP, seated hip abd with band and bridge with band PT-OP-T Assessment and Plan Start: 09/23/23 11:17 Freq: Status: Active Protocol: Document 09/30/23 10:13 AB (Rec: 09/30/23 12:12 AB [id number]) Physical Therapy Assessment Goals Four Impairment pain with car transfers Outbound Sales Consultant Goal (LTG) Pt will report that she has no hip pain with car transfers at least 75% of the time in order to demonstrate improved symptom management and QOL LTG Duration 12 weeks Three Impairment no HEP Short Term Goal (STG) Pt will report compliance with HEP at least 3x/wk in order to maximize progression with PT and promote independence when on her vacation STG Duration 4 weeks Outbound Sales Consultant Goal (LTG) Pt will report compliance with HEP at least 3x/wk in order to maintain progress from PT and promote independence upon discharge to maintenance program LTG Duration 12 weeks Two Impairment L hip and knee strength: -4/5 MMT Short Term Goal (STG) Pt will improve L hip and knee strength globally to at least 4/5 MMT in order to demonstrate increased strength for standing, ambulating, and playing with her grandkids STG Duration 6 weeks Custodial Goal (LTG) Pt will improve L hip and knee strength globally to at least 4+/5 MMT in order to demonstrate increased strength for standing, ambulating, and playing with her grandkids LTG Duration 12 weeks One Impairment STS- 15 sec 5x STS, pain with sitting motion Short Term Goal (STG) Pt will be able to perform at least 5 out of 10 reps of sit to stand from standard chair with good form and without increase in baseline pain symptoms in order to demonstrate improved transfers and BLE strength STG Duration 6 weeks Outbound Sales Consultant Goal (LTG) Pt will be able to perform 5x STS in 12 seconds or better ( age-related norm) in order to demonstrate improved BLE strength and ability to perform transfers LTG Duration 12 weeks Assessment Summary Assessment Patient reports pain with bridge start of session, setting up for MET, no pain post manual therapy and MET when performing bridge without and with band. Patient reports feeling good end of session, looser. Physical Therapy Plan Frequency and Duration Frequency of Treatment 2x/Week Duration of treatment (weeks) 12 Plan of Care Start Date 09/23/23 Plan of Care End Date 12/17/23 Next Visit Focus/Plan Next Note Type Treatment Note Next Visit Plan MET as needed, hip abd. Be aware of L hip OA (flex/rot pain) STM, SIJ mobilization, hip mobilization dmitriy IR stretching: hip flexors, quad, calf core bracing (trial flexion biased), retry clams (seated vs sidelying), Focus on reverse clams (seated vs sidelying), segmental bridge with ADD or ABD, rockbacks ( add IR/ER bias, then strengthening), side steps, hip flexion resisted osteopenia
--- NOTE | 2023-10-04 10:41 | PT.OTN ---
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 She has had radiographs, which indicate arthritis. She has seen Dr. Corrigan, who referred pt for strengthening before more intensive treatment. Currently not interested in a hip replacement. She reports that her hip began bothering her many years ago. No known KATINA. Pain is worse in bed, better with position changes or if static. She reports getting out of bed is slow and increases pain. She also has pain with extended sitting (>5 hours or driving). Pt also has B knee pain. She also has back pain periodically, but mainly concerned with the L hip. She reports that she does not like exercise, but has to stretch before getting out of bed. Pt has period tingling down posterior L leg, beginning recently; to thigh only. She has had previous PT for hip/back, same condition but she did not finish her PT program. No other injuries or significant PMH. Prior Treatments and Tests July 2023 radiograph: mild osteoarthritic changes of B hips Nov 2020 radiograph of lumbar spine: multilevel spondylosis Current Functional Impairments (Reported) Functional Limitations- ADL's no limitations with dressing pain with turning, household activities Functional Limitations- Mobility/Gait reports no pain if standing up (limit 5 hours)- takes break, puts feet up getting in and out of cars sitting on commode (hurts to sit and get up - low commode) ambulation- no limitations but mild; does walk at home Functional Limitations- Work/School rearranging her home Functional Limitations- Recreation/ takes care of grandkids Hobbies frequently in [place], has month long cruise planned PT-OP-C Subjective Start: 09/23/23 11:17 Freq: Status: Active Protocol: Document 10/04/23 08:09 AB (Rec: 10/04/23 10:40 AB [id number]) OP-PT Subjective Patient Comments Patient Comments Patient reports starting she is the same, heavy, but after the stretches feels better. Patient reports she was painting the leving room this weekend with right UE fatgue, is trying not to use left hand , ( due to burn.) PT-OP-D Balance Start: 09/23/23 11:17 Freq: Status: Active Protocol: Document 09/23/23 11:20 NM (Rec: 09/23/23 12:24 NM [id number]) Balance Tests Single Limb Standing Single Limb- Right 5 sec Single Limb- Left 5 sec; no increased pain but pt reports usually more painful PT-OP-E Functional Tests Start: 09/23/23 11:17 Freq: Status: Active Protocol: Document 09/23/23 11:20 NM (Rec: 09/23/23 12:24 NM [id number]) Functional Tests 30 Second Sit to Stand Test Score 9 Comments knee pain, mild L hip pain; worse w/ sit Five Times Sit to Stand Test Score 15 sec Comments knees over toes PT-OP-F Manual Assessment Start: 09/23/23 11:17 Freq: Status: Active Protocol: Document 09/23/23 11:20 NM (Rec: 09/23/23 12:24 NM [id number]) Manual Assessments Soft Tissue Assessment Soft Tissue Mobility Assessment Increased hamstring length bilaterally, but R more restricted than L Joint Mobility Assessment Joint Mobility Assessment Limited hip AROM bilaterally, mild limitations in PROM B hips. Hypomobility of lumbar spine and SIJ PT-OP-G Mobility & Gait Start: 09/23/23 11:17 Freq: Status: Active Protocol: Document 09/23/23 11:20 NM (Rec: 09/23/23 16:14 NM [id number]) OP Gait Assessment Gait Gait Assistance Required: Independent Distance (Feet) 200 Gait Deviations General Gait Pattern Antalgic,Lateral Trunk Lean PT-OP-J Posture/Palpation/Skin Start: 09/23/23 11:17 Freq: Status: Active Protocol: Document 09/23/23 11:20 NM (Rec: 09/23/23 12:24 NM [id number]) Posture Evaluation Position Standing Head/C-Spine Posture Forward Head L-Spine Posture Flattened,Decreased Lordosis Shoulder Posture (L) Rounded,(R) Rounded Pelvis Posture Posterior Tilted Hip Posture (L) Externally Rotated,(R) Externally Rotated Knee Posture (L) Genu Valgus,(R) Genu Valgus Patellar Posture (L) Superior,(R) Superior Palpation Assessment Location hips Palpation Details No tenderness in groin Mild hip flexor and quad tenderness along LLE lumbar spine Palpation Details Tenderness along L SIJ, none with R SIJ No tenderness with springing of lumbar spinous processes along midline or transverse processes laterally. Mild atrophy of B paraspinals, no glute/piriformis tenderness PT-OP-K Range of Motion Start: 09/23/23 11:17 Freq: Status: Active Protocol: Document 09/23/23 11:20 NM (Rec: 09/23/23 12:24 NM [id number]) Lumbar Spine Range of Motion Lumbar Spine Active Percentage Flexion 90 Extension 100 Rotation Left 100 Rotation Right 100 Lateral Flexion Left 100 Lateral Flexion Right 100 ROM Limitations Soft Tissue Tightness Comments mild pain SIJ pain with flex, R rot, ext Hip Goniometric Range of Motion Hip Right Flexion w/Knee Flexed 105 Abduction 20 Internal Rotation 25 External Rotation 35 Left Flexion w/Knee Flexed 105 Abduction 15 Internal Rotation 28 External Rotation 30 Comments stretch felt w/ hip flex Knee Goniometric Range of Motion Knee Right Flexion Active (degrees) 130 Extension Active (degrees) 0 Comments HS length 165 deg Left Flexion Active (degrees) 135 Extension Active (degrees) 0 Comments HS length 170 deg PT-OP-L Special Tests Start: 09/23/23 11:17 Freq: Status: Active Protocol: Document 09/23/23 11:20 NM (Rec: 09/23/23 12:24 NM [id number]) Special Tests Lumbar Spine Special Tests Laslett cluster for SIJ Test Results - Straight Leg Raise Test Results - Distraction Test Results + Slump Test Results - Thompson/quadrant Test Results + Comments L side with R test PT-OP-M Strength Start: 09/23/23 11:17 Freq: Status: Active Protocol: Document 09/23/23 11:20 NM (Rec: 09/23/23 12:24 NM [id number]) Trunk Strength Trunk Manual Muscle Testing Flexion 4 Good Extension 4 Good Rotation Left 4 Good Rotation Right 4 Good Lateral Flexion Left 4 Good Lateral Flexion Right 4 Good Comments Mild pain with resisted R rotation Hip Strength Hip Manual Muscle Testing Right Flexion (L2) 4 Good Extension (S1) 4 Good Abduction 4 Good Adduction 4 Good External Rotation 4 Good Internal Rotation 4 Good Left Flexion (L2) 4 Good Extension (S1) 4- Good- Abduction 4- Good- Adduction 4 Good External Rotation 4 Good Internal Rotation 4- Good- Comments Mild pain with resisted IR Knee Strength Knee Manual Muscle Testing Right Flexion (S2) 4- Good- Extension (L3) 4- Good- Comments crepitus and pain with resisted testing Left Flexion (S2) 4- Good- Extension (L3) 4- Good- Comments crepitus and pain with resisted testing PT-OP-Q Treatments Start: 09/23/23 11:17 Freq: Status: Active Protocol: Document 10/04/23 08:09 AB (Rec: 10/04/23 10:40 AB [id number]) Therapeutic Exercises Supine Exercises TrA activation Supine Exercise Name BKFO HEP Reps/Minutes X10 Comments monitored for pain, verbal cues stretching Supine Exercise Name piroformis and figure 4 Side bilateral Reps/Minutes 60 each exercise, each LE Sitting Exercises breathing from diaphragm Sitting Exercise Name with 2 pillows resting on lap, to perform when a passenger in car HEP Comments Verbal cues to expand core/ abdominal area into pillows, seated hip abd with band Sitting Exercise Name HEP Side bilateral Resistance teal band Reps/Minutes 2X10 slowly to 5 sec hold and X 1 one minute hold Comments verbal cues, monitored for pain hip IR Side bilateral Resistance AROM > level 1 band Equipment Used small teall ball for hip add Reps/Minutes 10 ea side, ea resistance Comments pain free but reports muscle activation following manual tx Manual Therapy Treatment Soft Tissue Mobilization B lumbar paraspinals/glutes/HS Body Location paraspinals, QL, glutes/ pirformis, HS Mobilization Type Cross-Friction,Rolling, Sustained Pressure Body Position Sidelying PT-OP-T Assessment and Plan Start: 09/23/23 11:17 Freq: Status: Active Protocol: Document 10/04/23 08:09 AB (Rec: 10/04/23 10:40 AB [id number]) Physical Therapy Assessment Goals Four Impairment pain with car transfers Longterm Goal (LTG) Pt will report that she has no hip pain with car transfers at least 75% of the time in order to demonstrate improved symptom management and QOL LTG Duration 12 weeks Three Impairment no HEP Short Term Goal (STG) Pt will report compliance with HEP at least 3x/wk in order to maximize progression with PT and promote independence when on her vacation STG Duration 4 weeks Longterm Goal (LTG) Pt will report compliance with HEP at least 3x/wk in order to maintain progress from PT and promote independence upon discharge to maintenance program LTG Duration 12 weeks Two Impairment L hip and knee strength: -4/5 MMT Short Term Goal (STG) Pt will improve L hip and knee strength globally to at least 4/5 MMT in order to demonstrate increased strength for standing, ambulating, and playing with her grandkids STG Duration 6 weeks Still Runner Goal (LTG) Pt will improve L hip and knee strength globally to at least 4+/5 MMT in order to demonstrate increased strength for standing, ambulating, and playing with her grandkids LTG Duration 12 weeks One Impairment STS- 15 sec 5x STS, pain with sitting motion Short Term Goal (STG) Pt will be able to perform at least 5 out of 10 reps of sit to stand from standard chair with good form and without increase in baseline pain symptoms in order to demonstrate improved transfers and BLE strength STG Duration 6 weeks Still Runner Goal (LTG) Pt will be able to perform 5x STS in 12 seconds or better ( age-related norm) in order to demonstrate improved BLE strength and ability to perform transfers LTG Duration 12 weeks Assessment Summary Assessment Yue 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 Patient required increased verbal cues for breathing from diaphragm. Patient ed to perform when a passenger when riding to [place] to visit grandchildren . Physical Therapy Plan Frequency and Duration Frequency of Treatment 2x/Week Duration of treatment (weeks) 12 Plan of Care Start Date 09/23/23 Plan of Care End Date 12/17/23 Next Visit Focus/Plan Next Note Type Treatment Note Next Visit Plan MET as needed, hip abd. Be aware of L hip OA (flex/rot pain) STM, SIJ mobilization, hip mobilization dmitriy IR stretching: hip flexors, quad, calf core bracing (trial flexion biased), progress band for seated clams (seated vs sidelying), Focus on reverse clams (seated vs sidelying), segmental bridge with ADD or ABD, rockbacks (add IR/ER bias , then strengthening), review side steps, add hip flexion resisted osteopenia
--- NOTE | 2023-10-06 10:47 | PT.OTN ---
Current Diagnoses Pain in left hip (10/06/23) Sacrococcygeal disorders, not elsewhere classified (10/06/23) Low back pain, unspecified (10/06/23) Other lack of coordination (10/06/23) Weakness (10/06/23) Physical Therapy Treatment Note PT-OP-A Visit Information Start: 09/23/23 11:17 Freq: Status: Active Protocol: Document 10/06/23 09:49 NM (Rec: 10/06/23 10:47 NM [id number]) Out-Patient Physical Therapy Visit Information Visit Information Visit Type Treatment Note Visit Note KX after 19 visits Visit Start Time 09:49 Visit Stop Time 10:30 Visit Number 5 PT-OP-B Current Condition Start: 09/23/23 11:17 Freq: Status: Active Protocol: Document 09/23/23 11:20 NM (Rec: 09/23/23 12:24 NM [id number]) Current Condition History of Current Condition Onset Date several years ago Current Complaints pain, stiffness, limited mobility History of Current Condition Pt reports L hip pain ( gestures to L SIJ). She has had radiographs, which indicate arthritis. She has seen Dr. Corrigan, who referred pt for strengthening before more intensive treatment. Currently not interested in a hip replacement. She reports that her hip began bothering her many years ago. No known KATINA. Pain is worse in bed, better with position changes or if static. She reports getting out of bed is slow and increases pain. She also has pain with extended sitting (>5 hours or driving). Pt also has B knee pain. She also has back pain periodically, but mainly concerned with the L hip. She reports that she does not like exercise, but has to stretch before getting out of bed. Pt has period tingling down posterior L leg, beginning recently; to thigh only. She has had previous PT for hip/back, same condition but she did not finish her PT program. No other injuries or significant PMH. Prior Treatments and Tests July 2023 radiograph: mild osteoarthritic changes of B hips Nov 2020 radiograph of lumbar spine: multilevel spondylosis Current Functional Impairments (Reported) Functional Limitations- ADL's no limitations with dressing pain with turning, household activities Functional Limitations- Mobility/Gait reports no pain if standing up (limit 5 hours)- takes break, puts feet up getting in and out of cars sitting on commode (hurts to sit and get up - low commode) ambulation- no limitations but mild; does walk at home Functional Limitations- Work/School rearranging her home Functional Limitations- Recreation/ takes care of grandkids Hobbies frequently in [place], has month long cruise planned PT-OP-C Subjective Start: 09/23/23 11:17 Freq: Status: Active Protocol: Document 10/06/23 09:49 NM (Rec: 10/06/23 10:47 NM [id number]) OP-PT Subjective Patient Comments Patient Comments Pt reports 1-2/10 in L SIJ. Reports improving significantly since starting PT. States exercises helping. Has less pain when sleeping and performing ADLs. PT-OP-D Balance Start: 09/23/23 11:17 Freq: Status: Active Protocol: Document 09/23/23 11:20 NM (Rec: 09/23/23 12:24 NM [id number]) Balance Tests Single Limb Standing Single Limb- Right 5 sec Single Limb- Left 5 sec; no increased pain but pt reports usually more painful PT-OP-E Functional Tests Start: 09/23/23 11:17 Freq: Status: Active Protocol: Document 09/23/23 11:20 NM (Rec: 09/23/23 12:24 NM [id number]) Functional Tests 30 Second Sit to Stand Test Score 9 Comments knee pain, mild L hip pain; worse w/ sit Five Times Sit to Stand Test Score 15 sec Comments knees over toes PT-OP-F Manual Assessment Start: 09/23/23 11:17 Freq: Status: Active Protocol: Document 09/23/23 11:20 NM (Rec: 09/23/23 12:24 NM [id number]) Manual Assessments Soft Tissue Assessment Soft Tissue Mobility Assessment Increased hamstring length bilaterally, but R more restricted than L Joint Mobility Assessment Joint Mobility Assessment Limited hip AROM bilaterally, mild limitations in PROM B hips. Hypomobility of lumbar spine and SIJ PT-OP-G Mobility & Gait Start: 09/23/23 11:17 Freq: Status: Active Protocol: Document 09/23/23 11:20 NM (Rec: 09/23/23 16:14 NM [id number]) OP Gait Assessment Gait Gait Assistance Required: Independent Distance (Feet) 200 Gait Deviations General Gait Pattern Antalgic,Lateral Trunk Lean PT-OP-J Posture/Palpation/Skin Start: 09/23/23 11:17 Freq: Status: Active Protocol: Document 09/23/23 11:20 NM (Rec: 09/23/23 12:24 NM [id number]) Posture Evaluation Position Standing Head/C-Spine Posture Forward Head L-Spine Posture Flattened,Decreased Lordosis Shoulder Posture (L) Rounded,(R) Rounded Pelvis Posture Posterior Tilted Hip Posture (L) Externally Rotated,(R) Externally Rotated Knee Posture (L) Genu Valgus,(R) Genu Valgus Patellar Posture (L) Superior,(R) Superior Palpation Assessment Location hips Palpation Details No tenderness in groin Mild hip flexor and quad tenderness along LLE lumbar spine Palpation Details Tenderness along L SIJ, none with R SIJ No tenderness with springing of lumbar spinous processes along midline or transverse processes laterally. Mild atrophy of B paraspinals, no glute/piriformis tenderness PT-OP-K Range of Motion Start: 09/23/23 11:17 Freq: Status: Active Protocol: Document 09/23/23 11:20 NM (Rec: 09/23/23 12:24 NM [id number]) Lumbar Spine Range of Motion Lumbar Spine Active Percentage Flexion 90 Extension 100 Rotation Left 100 Rotation Right 100 Lateral Flexion Left 100 Lateral Flexion Right 100 ROM Limitations Soft Tissue Tightness Comments mild pain SIJ pain with flex, R rot, ext Hip Goniometric Range of Motion Hip Right Flexion w/Knee Flexed 105 Abduction 20 Internal Rotation 25 External Rotation 35 Left Flexion w/Knee Flexed 105 Abduction 15 Internal Rotation 28 External Rotation 30 Comments stretch felt w/ hip flex Knee Goniometric Range of Motion Knee Right Flexion Active (degrees) 130 Extension Active (degrees) 0 Comments HS length 165 deg Left Flexion Active (degrees) 135 Extension Active (degrees) 0 Comments HS length 170 deg PT-OP-L Special Tests Start: 09/23/23 11:17 Freq: Status: Active Protocol: Document 09/23/23 11:20 NM (Rec: 09/23/23 12:24 NM [id number]) Special Tests Lumbar Spine Special Tests Laslett cluster for SIJ Test Results - Straight Leg Raise Test Results - Distraction Test Results + Slump Test Results - Thompson/quadrant Test Results + Comments L side with R test PT-OP-M Strength Start: 09/23/23 11:17 Freq: Status: Active Protocol: Document 09/23/23 11:20 NM (Rec: 09/23/23 12:24 NM [id number]) Trunk Strength Trunk Manual Muscle Testing Flexion 4 Good Extension 4 Good Rotation Left 4 Good Rotation Right 4 Good Lateral Flexion Left 4 Good Lateral Flexion Right 4 Good Comments Mild pain with resisted R rotation Hip Strength Hip Manual Muscle Testing Right Flexion (L2) 4 Good Extension (S1) 4 Good Abduction 4 Good Adduction 4 Good External Rotation 4 Good Internal Rotation 4 Good Left Flexion (L2) 4 Good Extension (S1) 4- Good- Abduction 4- Good- Adduction 4 Good External Rotation 4 Good Internal Rotation 4- Good- Comments Mild pain with resisted IR Knee Strength Knee Manual Muscle Testing Right Flexion (S2) 4- Good- Extension (L3) 4- Good- Comments crepitus and pain with resisted testing Left Flexion (S2) 4- Good- Extension (L3) 4- Good- Comments crepitus and pain with resisted testing PT-OP-Q Treatments Start: 09/23/23 11:17 Freq: Status: Active Protocol: Document 10/06/23 09:49 NM (Rec: 10/06/23 10:47 NM [id number]) Therapeutic Exercises Supine Exercises hip flexion Supine Exercise Name long lever LAQ Side bilateral Reps/Minutes 10 ea Comments trialed marching but d/c due to knee pain; cued no post lean TrA activation Supine Exercise Name 1. rectus abdominus karl, 2. oblique karl, 3. march, 3. non -alt dying bug Side bilateral Equipment Used small blue jordanian ball for all Reps/Minutes 1-2. 10x5 hold, 3. 10 ea, 4. 2x5 ea Comments cued for breathing; good activation and feedback, no pain except prn knees Standing Exercises pallof Standing Exercise Name walkout Side bilateral Resistance level 1 band Reps/Minutes 10 ea direction Comments pain free with smaller L step (hip abd) side stepping with band Standing Exercise Name HEP Side bilateral Resistance level 2 band at thighs > ankles Equipment Used flat hand support on bar for balance Reps/Minutes 4x10 ft, 2x10ft at ankles Comments cued not drag feet; pain free Manual Therapy Treatment Consent Patient gave verbal consent for manual Yes treatment Soft Tissue Mobilization L hip Body Location iliopsoas, TFL Mobilization Type Rolling,Strumming Intensity/Depth Moderate Body Position Supine B lumbar paraspinals/glutes/HS Body Location paraspinals, QL, glutes/ pirformis, HS Mobilization Type Cross-Friction,Rolling, Sustained Pressure Intensity/Depth Moderate Body Position Sidelying PT-OP-T Assessment and Plan Start: 09/23/23 11:17 Freq: Status: Active Protocol: Document 10/06/23 09:49 NM (Rec: 10/06/23 10:47 NM [id number]) Physical Therapy Assessment Goals Four Impairment pain with car transfers [facility] Goal (LTG) Pt will report that she has no hip pain with car transfers at least 75% of the time in order to demonstrate improved symptom management and QOL LTG Duration 12 weeks Three Impairment no HEP Short Term Goal (STG) Pt will report compliance with HEP at least 3x/wk in order to maximize progression with PT and promote independence when on her vacation STG Duration 4 weeks [facility] Goal (LTG) Pt will report compliance with HEP at least 3x/wk in order to maintain progress from PT and promote independence upon discharge to maintenance program LTG Duration 12 weeks Two Impairment L hip and knee strength: -4/5 MMT Short Term Goal (STG) Pt will improve L hip and knee strength globally to at least 4/5 MMT in order to demonstrate increased strength for standing, ambulating, and playing with her grandkids STG Duration 6 weeks [facility] Goal (LTG) Pt will improve L hip and knee strength globally to at least 4+/5 MMT in order to demonstrate increased strength for standing, ambulating, and playing with her grandkids LTG Duration 12 weeks One Impairment STS- 15 sec 5x STS, pain with sitting motion Short Term Goal (STG) Pt will be able to perform at least 5 out of 10 reps of sit to stand from standard chair with good form and without increase in baseline pain symptoms in order to demonstrate improved transfers and BLE strength STG Duration 6 weeks [facility] Goal (LTG) Pt will be able to perform 5x STS in 12 seconds or better ( age-related norm) in order to demonstrate improved BLE strength and ability to perform transfers LTG Duration 12 weeks Assessment Summary Assessment Pt tolerated session well. Continues to respond well to manual treatment, especially soft tissue mobilization. Session emphasis on glute, core, and lumbar strengthening to improve spinal stability across kinetic chain. Pt has mild knee pain with dying bug and reports lateral hip discomfort with pallof walkout after side steps. However, no pain with side steps and able to progress to band at ankles . Pt with good feedback for core bracing, but fatigues quickly. Reports no pain at at end of session. Pt would benefit from skilled PT for progressive BLE strengthening and trunk/core strengthening in order to improve activity tolerance. Physical Therapy Plan Frequency and Duration Frequency of Treatment 2x/Week Duration of treatment (weeks) 12 Plan of Care Start Date 09/23/23 Plan of Care End Date 12/17/23 Therapeutic Interventions Therapeutic Interventions Balance Training,Gait Training ,Home Exercise Program,Joint Mobilizations,Manual Therapy, Neuromuscular Re-education, Orthotic/Prosthetic Management ,Patient/Caregiver Education, Self-Care/Home Management, Sensory Integration,Soft Tissue Mobilization,Taping, Therapeutic Activities, Therapeutic Exercises Modalities Cold Pack/Ice Massage,Electric Stimulation,Hot Packs, Ultrasound Other Therapeutic Interventions pelvic realignment Grade III mobilizations max Next Visit Focus/Plan Next Note Type Treatment Note Next Visit Plan long lever LAQ, jordanian ball core, review dying bug w/ ball cross body for SIJ, cont hip strengthening (hip march in seated/standing, abd) MET as needed, hip abd. Be aware of L hip OA (flex/rot pain) STM, SIJ mobilization, hip mobilization dmitriy IR stretching: hip flexors, quad, calf core bracing (trial flexion biased), progress band for seated clams (seated vs sidelying), Focus on reverse clams (seated vs sidelying), segmental bridge with ADD or ABD, rockbacks (add IR/ER bias , then strengthening), review side steps, add hip flexion resisted osteopenia PN on last visit
--- NOTE | 2023-10-14 15:13 | PT.OTN ---
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 She has had radiographs, which indicate arthritis. She has seen Dr. Corrigan, who referred pt for strengthening before more intensive treatment. Currently not interested in a hip replacement. She reports that her hip began bothering her many years ago. No known KATINA. Pain is worse in bed, better with position changes or if static. She reports getting out of bed is slow and increases pain. She also has pain with extended sitting (>5 hours or driving). Pt also has B knee pain. She also has back pain periodically, but mainly concerned with the L hip. She reports that she does not like exercise, but has to stretch before getting out of bed. Pt has period tingling down posterior L leg, beginning recently; to thigh only. She has had previous PT for hip/back, same condition but she did not finish her PT program. No other injuries or significant PMH. Prior Treatments and Tests July 2023 radiograph: mild osteoarthritic changes of B hips Nov 2020 radiograph of lumbar spine: multilevel spondylosis Current Functional Impairments (Reported) Functional Limitations- ADL's no limitations with dressing pain with turning, household activities Functional Limitations- Mobility/Gait reports no pain if standing up (limit 5 hours)- takes break, puts feet up getting in and out of cars sitting on commode (hurts to sit and get up - low commode) ambulation- no limitations but mild; does walk at home Functional Limitations- Work/School rearranging her home Functional Limitations- Recreation/ takes care of grandkids Hobbies frequently in [place], has month long cruise planned PT-OP-C Subjective Start: 09/23/23 11:17 Freq: Status: Active Protocol: Document 10/14/23 14:33 SP (Rec: 10/14/23 15:26 SP [id number]) OP-PT Subjective Patient Comments Patient Comments Pt reports doing better, feeling less pain in L low back and less heavy laying down. PT-OP-D Balance Start: 09/23/23 11:17 Freq: Status: Active Protocol: Document 09/23/23 11:20 NM (Rec: 09/23/23 12:24 NM [id number]) Balance Tests Single Limb Standing Single Limb- Right 5 sec Single Limb- Left 5 sec; no increased pain but pt reports usually more painful PT-OP-E Functional Tests Start: 09/23/23 11:17 Freq: Status: Active Protocol: Document 09/23/23 11:20 NM (Rec: 09/23/23 12:24 NM [id number]) Functional Tests 30 Second Sit to Stand Test Score 9 Comments knee pain, mild L hip pain; worse w/ sit Five Times Sit to Stand Test Score 15 sec Comments knees over toes PT-OP-F Manual Assessment Start: 09/23/23 11:17 Freq: Status: Active Protocol: Document 09/23/23 11:20 NM (Rec: 09/23/23 12:24 NM [id number]) Manual Assessments Soft Tissue Assessment Soft Tissue Mobility Assessment Increased hamstring length bilaterally, but R more restricted than L Joint Mobility Assessment Joint Mobility Assessment Limited hip AROM bilaterally, mild limitations in PROM B hips. Hypomobility of lumbar spine and SIJ PT-OP-G Mobility & Gait Start: 09/23/23 11:17 Freq: Status: Active Protocol: Document 09/23/23 11:20 NM (Rec: 09/23/23 16:14 NM [id number]) OP Gait Assessment Gait Gait Assistance Required: Independent Distance (Feet) 200 Gait Deviations General Gait Pattern Antalgic,Lateral Trunk Lean PT-OP-J Posture/Palpation/Skin Start: 09/23/23 11:17 Freq: Status: Active Protocol: Document 09/23/23 11:20 NM (Rec: 09/23/23 12:24 NM [id number]) Posture Evaluation Position Standing Head/C-Spine Posture Forward Head L-Spine Posture Flattened,Decreased Lordosis Shoulder Posture (L) Rounded,(R) Rounded Pelvis Posture Posterior Tilted Hip Posture (L) Externally Rotated,(R) Externally Rotated Knee Posture (L) Genu Valgus,(R) Genu Valgus Patellar Posture (L) Superior,(R) Superior Palpation Assessment Location hips Palpation Details No tenderness in groin Mild hip flexor and quad tenderness along LLE lumbar spine Palpation Details Tenderness along L SIJ, none with R SIJ No tenderness with springing of lumbar spinous processes along midline or transverse processes laterally. Mild atrophy of B paraspinals, no glute/piriformis tenderness PT-OP-K Range of Motion Start: 09/23/23 11:17 Freq: Status: Active Protocol: Document 09/23/23 11:20 NM (Rec: 09/23/23 12:24 NM [id number]) Lumbar Spine Range of Motion Lumbar Spine Active Percentage Flexion 90 Extension 100 Rotation Left 100 Rotation Right 100 Lateral Flexion Left 100 Lateral Flexion Right 100 ROM Limitations Soft Tissue Tightness Comments mild pain SIJ pain with flex, R rot, ext Hip Goniometric Range of Motion Hip Right Flexion w/Knee Flexed 105 Abduction 20 Internal Rotation 25 External Rotation 35 Left Flexion w/Knee Flexed 105 Abduction 15 Internal Rotation 28 External Rotation 30 Comments stretch felt w/ hip flex Knee Goniometric Range of Motion Knee Right Flexion Active (degrees) 130 Extension Active (degrees) 0 Comments HS length 165 deg Left Flexion Active (degrees) 135 Extension Active (degrees) 0 Comments HS length 170 deg PT-OP-L Special Tests Start: 09/23/23 11:17 Freq: Status: Active Protocol: Document 09/23/23 11:20 NM (Rec: 09/23/23 12:24 NM [id number]) Special Tests Lumbar Spine Special Tests Laslett cluster for SIJ Test Results - Straight Leg Raise Test Results - Distraction Test Results + Slump Test Results - Thompson/quadrant Test Results + Comments L side with R test PT-OP-M Strength Start: 09/23/23 11:17 Freq: Status: Active Protocol: Document 09/23/23 11:20 NM (Rec: 09/23/23 12:24 NM [id number]) Trunk Strength Trunk Manual Muscle Testing Flexion 4 Good Extension 4 Good Rotation Left 4 Good Rotation Right 4 Good Lateral Flexion Left 4 Good Lateral Flexion Right 4 Good Comments Mild pain with resisted R rotation Hip Strength Hip Manual Muscle Testing Right Flexion (L2) 4 Good Extension (S1) 4 Good Abduction 4 Good Adduction 4 Good External Rotation 4 Good Internal Rotation 4 Good Left Flexion (L2) 4 Good Extension (S1) 4- Good- Abduction 4- Good- Adduction 4 Good External Rotation 4 Good Internal Rotation 4- Good- Comments Mild pain with resisted IR Knee Strength Knee Manual Muscle Testing Right Flexion (S2) 4- Good- Extension (L3) 4- Good- Comments crepitus and pain with resisted testing Left Flexion (S2) 4- Good- Extension (L3) 4- Good- Comments crepitus and pain with resisted testing PT-OP-Q Treatments Start: 09/23/23 11:17 Freq: Status: Active Protocol: Document 10/14/23 14:33 SP (Rec: 10/14/23 15:26 SP [id number]) Therapeutic Exercises Supine Exercises HSC Supine Exercise Name trialed in PT- sit EOtable Side bilateral Resistance Tb #2 Reps/Minutes 2x10 Comments initially calf tension, cued Df neutral then fac HS hip flexion Supine Exercise Name long lever LAQ- Seated Side bilateral Resistance AROM- target therapist hand Reps/Minutes 10 ea Comments limit range due to knee pain; cued no post lean TrA activation Supine Exercise Name 1. rectus abdominus karl, 2. oblique karl, 3. SL lower 3. non-alterdead bug Side bilateral Equipment Used 1. 45 cm tball on abdomen press down Reps/Minutes 1-2. 10x5 hold, 3. 7ea, 4. 2x5 /c tball ea Comments cued for breathing; good activation and feedback, no pain except prn knees Sitting Exercises stretching Sitting Exercise Name 1. hip IR & ER (Fig 4) 2. HS stretching Side bilateral Equipment Used assist ROM on plane Reps/Minutes 20 SH IR & ER ft over opp LE 2 . stretch & AP Comments ER little uncomforable, IR better. Standing Exercises calf stretch Standing Exercise Name 1. lunge stance: gastroc- assist on plane 2. off edge step Side bilateral Equipment Used hands on rail Reps/Minutes 30 Sh x2 each Comments good stretch on back knee and calf pallof Standing Exercise Name walkout Side bilateral Resistance level 1 band peach Reps/Minutes 10 ea direction Comments pain free equal stepping demonstrated Other Exercises self STMs Other Exercise Name rolling pin quad, HS, calf; ball wall glut Side bilateral Resistance R>L Reps/Minutes 2 min total Comments good feedback tension reduction can do traveling. PT-OP-T Assessment and Plan Start: 09/23/23 11:17 Freq: Status: Active Protocol: Document 10/14/23 14:33 SP (Rec: 10/14/23 15:26 SP [id number]) Physical Therapy Assessment Goals Four Impairment pain with car transfers Police Lieutenant Goal (LTG) Pt will report that she has no hip pain with car transfers at least 75% of the time in order to demonstrate improved symptom management and QOL LTG Duration 12 weeks Three Impairment no HEP Short Term Goal (STG) Pt will report compliance with HEP at least 3x/wk in order to maximize progression with PT and promote independence when on her vacation STG Duration 4 weeks Police Lieutenant Goal (LTG) Pt will report compliance with HEP at least 3x/wk in order to maintain progress from PT and promote independence upon discharge to maintenance program LTG Duration 12 weeks Two Impairment L hip and knee strength: -4/5 MMT Short Term Goal (STG) Pt will improve L hip and knee strength globally to at least 4/5 MMT in order to demonstrate increased strength for standing, ambulating, and playing with her grandkids STG Duration 6 weeks [facility] Goal (LTG) Pt will improve L hip and knee strength globally to at least 4+/5 MMT in order to demonstrate increased strength for standing, ambulating, and playing with her grandkids LTG Duration 12 weeks One Impairment STS- 15 sec 5x STS, pain with sitting motion Short Term Goal (STG) Pt will be able to perform at least 5 out of 10 reps of sit to stand from standard chair with good form and without increase in baseline pain symptoms in order to demonstrate improved transfers and BLE strength STG Duration 6 weeks Police Lieutenant Goal (LTG) Pt will be able to perform 5x STS in 12 seconds or better ( age-related norm) in order to demonstrate improved BLE strength and ability to perform transfers LTG Duration 12 weeks Assessment Summary Assessment Pt tolerated tx well, ther ex and instruction self STMs for carryover support traveling. 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 proper form during resisted ther ex Physical Therapy Plan Frequency and Duration Frequency of Treatment 2x/Week Duration of treatment (weeks) 12 Plan of Care Start Date 09/23/23 Plan of Care End Date 12/17/23 Therapeutic Interventions Therapeutic Interventions Balance Training,Gait Training ,Home Exercise Program,Joint Mobilizations,Manual Therapy, Neuromuscular Re-education, Orthotic/Prosthetic Management ,Patient/Caregiver Education, Self-Care/Home Management, Sensory Integration,Soft Tissue Mobilization,Taping, Therapeutic Activities, Therapeutic Exercises Modalities Cold Pack/Ice Massage,Electric Stimulation,Hot Packs, Ultrasound Other Therapeutic Interventions pelvic realignment Grade III mobilizations max Next Visit Focus/Plan Next Note Type Treatment Note Next Visit Plan Pt OOT for week. POC: seated long lever LAQ, supine belgian ball core & dying bug w/ ball cross body use Tball for SIJ, cont hip strengthening (hip march in seated/standing, abd) MET as needed, hip abd. Be aware of L hip OA (flex/rot pain) STM, SIJ mobilization, hip mobilization dmitriy IR stretching: hip flexors, quad, calf core bracing (trial flexion biased), progress band for seated clams (seated vs sidelying), Focus on reverse clams (seated vs sidelying), segmental bridge with ADD or ABD, rockbacks (add IR/ER bias , then strengthening), review side steps, add hip flexion resisted osteopenia PN on last visit
--- NOTE | 2023-11-18 09:59 | PT-OP ANOTE ---
PT called and spoke to pt at 0955 because pt has cancelled last 4 appt. Pt reports that she is doing well and has been doing HEP, which helps. She states pain is not worse and thinks is improving. However, she is in [facility] and cannot make appointments. PT discussed discharge with pt due to canceled appt and scheduling issues. PT also recommended that pt plan to get new referral for PT when her schedule clears if symptoms do not improve. Pt verbalizes agreement to discharge and cancelling remaining appt.
--- NOTE | 2023-11-18 10:06 | PT.OPDS ---
Current Diagnoses Pain in left hip (10/14/23) Sacrococcygeal disorders, not elsewhere classified (10/14/23) Low back pain, unspecified (10/14/23) Other lack of coordination (10/14/23) Weakness (10/14/23) Visit Care Team Role Provider Type Camille Corrigan DO Attending Provider Physician Family Provider Primary Care Provider Referring Provider Specialty: Medical Address: [address] [place] [address], [address], [place], [address] Email: [email or web address] Visit Number Visit Number 6 Discharge Summary PT-OP-B Current Condition Start: 09/23/23 11:17 Freq: Status: Active Protocol: Document 09/23/23 11:20 NM (Rec: 09/23/23 12:24 NM [id number]) Current Condition History of Current Condition Onset Date several years ago Current Complaints pain, stiffness, limited mobility History of Current Condition Pt reports L hip pain ( gestures to L SIJ). She has had radiographs, which indicate arthritis. She has seen Dr. Corrigan, who referred pt for strengthening before more intensive treatment. Currently not interested in a hip replacement. She reports that her hip began bothering her many years ago. No known KATINA. Pain is worse in bed, better with position changes or if static. She reports getting out of bed is slow and increases pain. She also has pain with extended sitting (>5 hours or driving). Pt also has B knee pain. She also has back pain periodically, but mainly concerned with the L hip. She reports that she does not like exercise, but has to stretch before getting out of bed. Pt has period tingling down posterior L leg, beginning recently; to thigh only. She has had previous PT for hip/back, same condition but she did not finish her PT program. No other injuries or significant PMH. Prior Treatments and Tests July 2023 radiograph: mild osteoarthritic changes of B hips Nov 2020 radiograph of lumbar spine: multilevel spondylosis Current Functional Impairments (Reported) Functional Limitations- ADL's no limitations with dressing pain with turning, household activities Functional Limitations- Mobility/Gait reports no pain if standing up (limit 5 hours)- takes break, puts feet up getting in and out of cars sitting on commode (hurts to sit and get up - low commode) ambulation- no limitations but mild; does walk at home Functional Limitations- Work/School rearranging her home Functional Limitations- Recreation/ takes care of grandkids Hobbies frequently in [place], has month long cruise planned PT-OP-C Subjective Start: 09/23/23 11:17 Freq: Status: Active Protocol: Document 10/14/23 14:33 SP (Rec: 10/14/23 15:26 SP [id number]) OP-PT Subjective Patient Comments Patient Comments Pt reports doing better, feeling less pain in L low back and less heavy laying down. PT-OP-D Balance Start: 09/23/23 11:17 Freq: Status: Active Protocol: Document 09/23/23 11:20 NM (Rec: 09/23/23 12:24 NM [id number]) Balance Tests Single Limb Standing Single Limb- Right 5 sec Single Limb- Left 5 sec; no increased pain but pt reports usually more painful PT-OP-E Functional Tests Start: 09/23/23 11:17 Freq: Status: Active Protocol: Document 09/23/23 11:20 NM (Rec: 09/23/23 12:24 NM [id number]) Functional Tests 30 Second Sit to Stand Test Score 9 Comments knee pain, mild L hip pain; worse w/ sit Five Times Sit to Stand Test Score 15 sec Comments knees over toes PT-OP-F Manual Assessment Start: 09/23/23 11:17 Freq: Status: Active Protocol: Document 09/23/23 11:20 NM (Rec: 09/23/23 12:24 NM [id number]) Manual Assessments Soft Tissue Assessment Soft Tissue Mobility Assessment Increased hamstring length bilaterally, but R more restricted than L Joint Mobility Assessment Joint Mobility Assessment Limited hip AROM bilaterally, mild limitations in PROM B hips. Hypomobility of lumbar spine and SIJ PT-OP-G Mobility & Gait Start: 09/23/23 11:17 Freq: Status: Active Protocol: Document 09/23/23 11:20 NM (Rec: 09/23/23 16:14 NM [id number]) OP Gait Assessment Gait Gait Assistance Required: Independent Distance (Feet) 200 Gait Deviations General Gait Pattern Antalgic,Lateral Trunk Lean PT-OP-J Posture/Palpation/Skin Start: 09/23/23 11:17 Freq: Status: Active Protocol: Document 09/23/23 11:20 NM (Rec: 09/23/23 12:24 NM [id number]) Posture Evaluation Position Standing Head/C-Spine Posture Forward Head L-Spine Posture Flattened,Decreased Lordosis Shoulder Posture (L) Rounded,(R) Rounded Pelvis Posture Posterior Tilted Hip Posture (L) Externally Rotated,(R) Externally Rotated Knee Posture (L) Genu Valgus,(R) Genu Valgus Patellar Posture (L) Superior,(R) Superior Palpation Assessment Location hips Palpation Details No tenderness in groin Mild hip flexor and quad tenderness along LLE lumbar spine Palpation Details Tenderness along L SIJ, none with R SIJ No tenderness with springing of lumbar spinous processes along midline or transverse processes laterally. Mild atrophy of B paraspinals, no glute/piriformis tenderness PT-OP-K Range of Motion Start: 09/23/23 11:17 Freq: Status: Active Protocol: Document 09/23/23 11:20 NM (Rec: 09/23/23 12:24 NM [id number]) Lumbar Spine Range of Motion Lumbar Spine Active Percentage Flexion 90 Extension 100 Rotation Left 100 Rotation Right 100 Lateral Flexion Left 100 Lateral Flexion Right 100 ROM Limitations Soft Tissue Tightness Comments mild pain SIJ pain with flex, R rot, ext Hip Goniometric Range of Motion Hip Right Flexion w/Knee Flexed 105 Abduction 20 Internal Rotation 25 External Rotation 35 Left Flexion w/Knee Flexed 105 Abduction 15 Internal Rotation 28 External Rotation 30 Comments stretch felt w/ hip flex Knee Goniometric Range of Motion Knee Right Flexion Active (degrees) 130 Extension Active (degrees) 0 Comments HS length 165 deg Left Flexion Active (degrees) 135 Extension Active (degrees) 0 Comments HS length 170 deg PT-OP-L Special Tests Start: 09/23/23 11:17 Freq: Status: Active Protocol: Document 09/23/23 11:20 NM (Rec: 09/23/23 12:24 NM [id number]) Special Tests Lumbar Spine Special Tests Laslett cluster for SIJ Test Results - Straight Leg Raise Test Results - Distraction Test Results + Slump Test Results - Thompson/quadrant Test Results + Comments L side with R test PT-OP-M Strength Start: 09/23/23 11:17 Freq: Status: Active Protocol: Document 09/23/23 11:20 NM (Rec: 07/11/24 12:24 NM [id number]) Trunk Strength Trunk Manual Muscle Testing Flexion 4 Good Extension 4 Good Rotation Left 4 Good Rotation Right 4 Good Lateral Flexion Left 4 Good Lateral Flexion Right 4 Good Comments Mild pain with resisted R rotation Hip Strength Hip Manual Muscle Testing Right Flexion (L2) 4 Good Extension (S1) 4 Good Abduction 4 Good Adduction 4 Good External Rotation 4 Good Internal Rotation 4 Good Left Flexion (L2) 4 Good Extension (S1) 4- Good- Abduction 4- Good- Adduction 4 Good External Rotation 4 Good Internal Rotation 4- Good- Comments Mild pain with resisted IR Knee Strength Knee Manual Muscle Testing Right Flexion (S2) 4- Good- Extension (L3) 4- Good- Comments crepitus and pain with resisted testing Left Flexion (S2) 4- Good- Extension (L3) 4- Good- Comments crepitus and pain with resisted testing PT-OP-T Assessment and Plan Start: 09/23/23 11:17 Freq: Status: Active Protocol: Document 11/18/23 10:01 NM (Rec: 11/18/23 10:06 NM [id number]) Physical Therapy Assessment Goals Four Impairment pain with car transfers [facility]pc Goal (LTG) Pt will report that she has no hip pain with car transfers at least 75% of the time in order to demonstrate improved symptom management and QOL LTG Duration 12 weeks Three Impairment no HEP Short Term Goal (STG) Pt will report compliance with HEP at least 3x/wk in order to maximize progression with PT and promote independence when on her vacation STG Duration 4 weeks [facility]pc Goal (LTG) Pt will report compliance with HEP at least 3x/wk in order to maintain progress from PT and promote independence upon discharge to maintenance program LTG Duration 12 weeks Two Impairment L hip and knee strength: -4/5 MMT Short Term Goal (STG) Pt will improve L hip and knee strength globally to at least 4/5 MMT in order to demonstrate increased strength for standing, ambulating, and playing with her grandkids STG Duration 6 weeks [facility]pc Goal (LTG) Pt will improve L hip and knee strength globally to at least 4+/5 MMT in order to demonstrate increased strength for standing, ambulating, and playing with her grandkids LTG Duration 12 weeks One Impairment STS- 15 sec 5x STS, pain with sitting motion Short Term Goal (STG) Pt will be able to perform at least 5 out of 10 reps of sit to stand from standard chair with good form and without increase in baseline pain symptoms in order to demonstrate improved transfers and BLE strength STG Duration 6 weeks Plodding Operator Goal (LTG) Pt will be able to perform 5x STS in 12 seconds or better ( age-related norm) in order to demonstrate improved BLE strength and ability to perform transfers LTG Duration 12 weeks Assessment Summary Assessment Pt was evaluated in September for back and hip pain. She attended x5 treatments following evaluation. Pt has not been seen in clinic since 10/14/23. Pt took long break in October for vacation and cancelled 4 subsequent appointments due to scheduling issues. No PT goals met. PT called and spoke to pt on 11/17, where PT and pt discussed discharge due to violation of attendance policy because of missed appointments. Pt has been performing HEP, stating that HEP helps and pain has improved. PT educated pt to get new referral when her schedule clears to allow if symptoms still present. Pt verbalizes agreement. Physical Therapy Plan Frequency and Duration Frequency of Treatment 2x/Week Duration of treatment (weeks) 12 Plan of Care Start Date 09/23/23 Plan of Care End Date 12/17/23 Therapeutic Interventions Therapeutic Interventions Balance Training,Gait Training ,Home Exercise Program,Joint Mobilizations,Manual Therapy, Neuromuscular Re-education, Orthotic/Prosthetic Management ,Patient/Caregiver Education, Self-Care/Home Management, Sensory Integration,Soft Tissue Mobilization,Taping, Therapeutic Activities, Therapeutic Exercises Modalities Cold Pack/Ice Massage,Electric Stimulation,Hot Packs, Ultrasound Other Therapeutic Interventions pelvic realignment Grade III mobilizations max Discharge Physical Therapy Discharge Reasons No Longer Attending PT Discharge Comments Pt has not been seen in clinic since 10/14/23. She has canceled 4 subsequent appt in a row. When PT spoke to pt on 11/17, pt reports babysitting grandkids in [place] and states cannot make appt. PT and pt discussed discharge due to missed appt and scheduling conflicts; pt in agreement. Next Visit Focus/Plan Next Note Type Discharge Summary Next Visit Plan discharge from PT
== END 2023-11-23 10:44 | disposition home or self-care (01) ==
LOC: PHYS 14:30
PROVIDERS: Family Provider Family Medicine; PCP Family Medicine; Referring Provider Family Medicine; Visit Provider Family Medicine
DX: M54.50 Low back pain, unspecified (principal); M53.3 Sacrococcygeal disorders, not elsewhere classified; M25.552 Pain in left hip; R53.1 Weakness; R27.8 Other lack of coordination
CPT/HCPCS: 97110; 97140; 97161

== ENCOUNTER → 2023-12-01 16:17 | Outpatient (CLI) | payer MEDICARE, OTHER, SELFPAY ==
--- NOTE | 2023-12-01 16:19 | DI.RAD.S_ITS ---
PROCEDURE: XR HAND RT MIN 3V INDICATIONS: pain b/t 2/3 digit proximal metacarpals TECHNIQUE: 3 views of the hand(s) acquired. COMPARISON: None. FINDINGS: No acute fracture or dislocation. Mild 1st CMC, 1st IP and 2nd-4th PIP joint osteoarthritis. No radiographic abnormality corresponding to the proximal 2nd-3rd metacarpals. IMPRESSION: Mild osteoarthritis involving the 1st CMC, 1st IP, and 2nd-4th PIP joints. Dictated by: Nick Negron M.D. on 12/01/2023 at 21:08 Approved by: Nick Negron M.D. on 12/01/2023 at 21:12
== END ==
LOC: RAD 16:19
PROVIDERS: Family Provider Family Medicine; PCP Family Medicine; Referring Provider Physician Assistant; Visit Provider Physician Assistant
DX: M18.11 Unilateral primary osteoarthritis of first carpometacarpal joint, right hand (principal); M19.041 Primary osteoarthritis, right hand; M79.641 Pain in right hand
CPT/HCPCS: 73130

== ENCOUNTER → 2024-01-11 11:34 | Outpatient (CLI) | payer MEDICARE, OTHER, SELFPAY ==
--- NOTE | 2024-01-11 11:35 | DI.US.S_ITS ---
PROCEDURE: US PERIPH VENOUS LOW EXTREM RT INDICATIONS: Pain popliteal area, varicose veins TECHNIQUE: Real-time imaging, as well as color and pulse Doppler interrogation, were performed of the lower extremity deep veins from the inguinal ligament to the popliteal fossa, with documentation of the visualized calf veins. COMPARISON: None. FINDINGS: The common femoral, femoral, popliteal, and the visualized calf veins are normally compressible, and free of intraluminal thrombus. Color and pulse Doppler demonstrate normal phasic intraluminal flow. There is normal augmentation response to distal compression maneuver. IMPRESSION: No evidence of DVT in visualized right lower extremity veins. Popliteal cyst is seen in posterior right knee measures 3.7 x 1.9 x 1.6 cm in size. Dictated by: Jordy Vizcaino M.D. on 01/11/2024 at 12:20 Approved by: Jordy Vizcaino M.D. on 01/11/2024 at 12:26
== END ==
PROVIDERS: Family Provider Family Medicine; PCP Family Medicine; Referring Provider Physician Assistant; Visit Provider Physician Assistant
DX: I83.93 Asymptomatic varicose veins of bilateral lower extremities (principal); M25.561 Pain in right knee; M71.21 Synovial cyst of popliteal space [Baker], right knee
CPT/HCPCS: 93971

== ENCOUNTER → 2024-10-23 09:09 | Outpatient (CLI) | payer MEDICARE, OTHER, SELFPAY ==
[2024-10-23 09:56] LABS: Hemoglobin A1C% w Est Avg Glu 6.1 % (4.0-6.0)
[2024-10-23 10:17] LABS: Alanine Aminotransferase 17 IU/L (<35); Albumin 4.4 g/dL (3.5-5.0); Albumin Globulin Ratio 1.5 (1.0-2.8); Alkaline Phosphatase 81 U/L (38-126); Blood Urea Nitrogen 17 mg/dL (7-17); Calcium 9.4 mg/dL (8.4-10.2); Carbon Dioxide 29 mmol/L (22-32); Chloride 103 mmol/L (98-107); Cholesterol 222 mg/dL (140-199); Estimated Glomerular Filt Rate > 60 mL/min (>60); Globulin 2.9 g/dL (1.7-4.1); Glucose 118 mg/dL (70-99); HDL Cholesterol 52 mg/dL (40-60); HEMOLYSIS < 15 (0-50); Potassium 4.4 mmol/L (3.4-5.1); Sodium 139 mmol/L (137-145); Total Protein 7.3 g/dL (6.3-8.2); Triglycerides 190 mg/dL (35-150)
[2024-10-24 03:40] LABS: CRP, High Sensitivity 0.48 mg/L (0.00-3.00)
== END ==
PROVIDERS: Family Provider Family Medicine; PCP Family Medicine; Referring Provider Family Medicine; Visit Provider Family Medicine
DX: R73.03 Prediabetes (principal); E78.5 Hyperlipidemia, unspecified; M81.0 Age-related osteoporosis without current pathological fracture; E78.2 Mixed hyperlipidemia
CPT/HCPCS: 36415; 80053; 80061; 82523; 83036; 86140

== ENCOUNTER → 2024-12-05 12:12 | Outpatient (CLI) | payer MEDICARE, OTHER, SELFPAY ==
--- NOTE | 2024-12-05 12:13 | DI.RAD.S_ITS ---
PROCEDURE: XR DEXA AXIAL SKELETON INDICATIONS: 2y interval COMPARISON: [facility], [facility], XR DEXA AXIAL SKELETON, 09/08/2022, 10:01. FINDINGS: Lumbar Spine: Bone mineral density 0.782 g/cm2, T score -2.1. There is interval 1.3% decrease in total lumbar spine bone mineral density. Left Femoral Neck: Bone mineral density 0.565 g/cm2, T score -2.6. There is interval 9.5% decrease in left femoral neck bone mineral density. Left Hip: Bone mineral density 0.656 g/cm2, T score -2.3. There is interval 1.3% decrease in left hip bone mineral density. Fracture Risk Calculation (when applicable): 10-year fracture risk of a major osteoporotic fracture 7.9 percent and of a hip fracture 1.9 percent. (T score greater or equal to -1.0 to: NORMAL) (T score from -1.1 to -2.4: OSTEOPENIA) (T score less than or equal to -2.5: OSTEOPOROSIS) IMPRESSION: Osteoporosis. Follow-up guidelines as follows: Osteoporosis: Consider a repeat DEXA and Vertebral Fracture Assessment (VFA) exam in 2 years or sooner if medically necessary, to reassess this patient's status. Osteopenia: Consider a repeat DEXA in 2-3 years to reassess this patient's status, or if there is a new clinical indication. Normal: Consider a repeat DEXA in 5 years or sooner, or if there is a new clinical indication. All treatment decisions require clinical judgment and consideration of individual patient factors, including patient preferences, comorbidities, previous drug use, risk factors not captured in the FRAX model (e.g., frailty, falls, vitamin D deficiency, increased bone turnover, interval significant decline in bone density ) and possible under- or over-estimation of fracture risk by FRAX. In addition, the NOF Guide recommends that FDA-approved medical therapies be considered in postmenopausal women and men age >= 50 years with a: * Hip or vertebral (clinical or morphometric) fracture * T-score of <=-2.5 at the spine or hip * Ten-year fracture probability by FRAX of >= 3% for hip fracture or >=20% for major osteoporotic fracture. Dictated by: Jordy Vizcaino M.D. on 12/05/2024 at 15:54 Approved by: Jordy Vizcaino M.D. on 12/05/2024 at 15:56
== END ==
PROVIDERS: Family Provider Family Medicine; PCP Family Medicine; Referring Provider Family Medicine; Visit Provider Family Medicine
DX: M81.0 Age-related osteoporosis without current pathological fracture (principal)
CPT/HCPCS: 77080